=== PATIENT | female | born 1935 | race Caucasian/White ===

== ENCOUNTER 2019-06-22 10:00 | Outpatient (RCR) | payer MEDICARE, SELFPAY ==
--- NOTE | 2019-05-16 15:40 | PTOPEVAL ---
INITIAL PHYSICAL THERAPY EVALUATION and PLAN OF CARE Thank you for referring Maryjo to [facility]. She will be seen in PT 1x/wk x 6 wks. Please review, sign, date and return this plan of care CAMILLE. I agree with and certify that the following plan of care is medically necessary. Referring Physician Date Admitting Provider: Attending Provider: PHYSICIAN NOT ON STAFF Referring Provider: *PT Outpatient Evaluation Start: 05/16/19 14:11 Freq: Status: Active Protocol: Document 05/16/19 14:05 RYAN (Rec: 05/16/19 15:33 RYAN [id number]) Therapy Assessment Status Assessment Status Assessment Status Evaluation Outpatient Past Medical History Neurological History Hx Neurological Disorders No Significant History Cardiovascular History Hx Hypercholesterolemia Yes Hx Hypertension Yes Respiratory History Hx Other Respiratory Disorders Yes: gets out of breath easily -has inhalers,advair use prn Gastrointestinal History Hx Cholecystectomy Yes Hx Esophageal Disorders Yes: Pack's Hx Gastroesophageal Reflux Disease Yes Genitourinary History Hx Genitourinary Disorders No Significant History Musculoskeletal History Hx Other Musculoskeletal Disorders Yes: sees chiropractor 1x/wk- back,shld Endocrine History Hx Hypothyroidism Yes HEENT History Hx Cataracts Yes Other History Hx Cancer Yes: L breast lumpectomies, oral medication Evaluation Information Problem Diagnosis uterine prolapse;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 Was given cream to apply to issues. When applying the cream to perineal region - noticed bulge. No pain associated with bulge. was told it was her bladder not her uterus. At times - when coming home - will need to hurry to get to bathroom. Usually doesn't leak - but on occasion does. Will wear a pad - pantiliner - 1/day. Toliets 1x/night. Prior Level of Function Activity Level (Last 3 Months) Hand Dominance Right Medications Home Meds (Include: OTC, RX, Vitamins, advair diskus - prn, Herbals, Dose, Route,and Frequen
--- NOTE | 2019-06-22 14:25 | PTOPEVAL ---
PHYSICAL THERAPY DISCHARGE NOTE Thank you for referring Maryjo Thapa to [facility]. She was seen for a total of 6 visits. HEP and urge strategies were reviewed this date. Goals have been met. I agree with and certify that the following plan of care is medically necessary. Referring Physician Date Admitting Provider: Attending Provider: PHYSICIAN NOT ON STAFF Referring Provider: *PT Outpatient Evaluation Start: 05/16/19 14:11 Freq: Status: Active Protocol: Document 06/22/19 10:10 RYAN (Rec: 06/22/19 14:25 RYAN [email or web address]) Therapy Assessment Status Assessment Status Assessment Status Discharge Evaluation Information Problem Subjective Information Maryjo reports that she needs Query Text:As Reported By Patient/ to remember to do HEP on a Family regular basis. She has been able to use urge strategies effectively, but hasn't been traveling too much as of late due to stay at home situation with COVID 19. She did state that she hasn't noticed any change with perineal bulge with application of cream. Pain Assessment Timing of Pain Assessment Timing of Pain Assessment Assessment Self Report Self Report Pain Level 0 Pain Score Pain Score 0: Self Report Pelvic Health Evaluation Pelvic Floor Assessment Sustained Levator Ani Strength 3/[address] Quick Levator Ani Contraction in 15 7 reps Seconds PT Clinical Summary Clinical Summary Protocol: PTEVCODE PT Clinical Summary Maryjo has progressed well with levator ani strengthening - slow twitch, fast twitch fibers, as well as urge strategies. She has met most goals set in PT. She was encouraged to continue with HEP on a regular basis and to continue to utilize urge strategies whenever urinary urge is felt. Ready for d/c to HEP.
== END 2019-06-22 16:10 | disposition home or self-care (01) ==
LOC: ANHPT 10:00
DX: N81.4 Uterovaginal prolapse, unspecified (principal); C50.412 Malignant neoplasm of upper-outer quadrant of left female breast; Z17.0 Estrogen receptor positive status [ER+]
CPT/HCPCS: 97110; 97161

== ENCOUNTER → 2020-12-19 08:02 | Outpatient (CLI) | payer MEDICARE, SELFPAY ==
[2020-12-19 18:09] LABS: SARS-CoV-2 RNA PCR Positive
== END ==
PROVIDERS: PCP Family Medicine; Visit Provider Nurse Practitioner
DX: U07.1 COVID-19 (principal)
CPT/HCPCS: C9803; U0003; U0005

== ENCOUNTER → 2021-03-21 12:02 | Outpatient (CLI) | payer MEDICARE, SELFPAY ==
--- NOTE | ~2021-03-21 | DEXA_ITS ---
Bone Density Report Name: MANOLO FORMAN Age: 86 Sex: Female Ethnicity: White Date of : 1935 Indication: osteopenia; height loss; cancer; postmenopausal Referring Provider: Krystal Hsu Study: Bone densitometry was performed. Exam Date: March 21, 2021 Accession number: [id number] Bone Density: Region BMD T-score Z-score Classification AP Spine (L2, L3, L4) 0.954 -1.1 1.8 Osteopenia Femoral Neck (Left) 0.638 -1.9 0.6 Osteopenia Total Hip (Left) 0.772 -1.4 0.9 Osteopenia Femoral Neck (Right) 0.565 -2.6 0.0 Osteoporosis Total Hip (Right) 0.766 -1.4 0.9 Osteopenia Total Hip Mean 0.769 -1.4 0.9 Osteopenia World Health Organization criteria for BMD impression classify patients as: Normal (T-score at or above -1.0), Osteopenia (T-score between -1.0 and -2.5), or Osteoporosis (T-score at or below -2.5). 10-year Fracture Risk: FRAX not reported because: Some T-score for Spine Total or Hip Total or Femoral Neck at or below -2.5 Previous Exams: Region Exam Age BMD T-score BMD Change BMD Change Date g/cm2 vs Baseline vs Previous AP Spine(L2, L3, L4) 03/21/2021 86 0.954 -1.1 0.002 0.047* 10/26/2018 83 0.907 -1.6 -0.044* -0.044* 04/23/2016 81 0.951 -1.2 Total Hip(Left) 03/21/2021 86 0.772 -1.4 -0.028* 0.004 10/26/2018 83 0.767 -1.4 -0.032* -0.032* 04/23/2016 81 0.799 -1.2 Total Hip(Right) 03/21/2021 86 0.766 -1.4 0.002 0.020 10/26/2018 83 0.746 -1.6 -0.018 -0.018 04/23/2016 81 0.764 -1.5 *Denotes significance at 95% confidence level, LSC for AP Spine = 0.022 g/cm2, LSC for Total Hip = 0.027 g/cm2 Clinical Information Provided by Patient: Has used the following medications: Vitamin D, Calcium, MTV Has the following medical conditions: Cancer, LEVOTHYROXINE, ANASTROZOLE FOR LEFT BREAST CANCER 2018 Patient maximum height was 64.0 Menopause Age: 49 No regular weight bearing exercise Drinks caffeinated beverages Onset of menses at age 14 Number of children 4 Impression: The patient has osteoporosis, based on the Right Femoral Neck T-score. No significant bone loss was observed. Discussion: INCREASED RISK OF FRACTURE. BONE DENSITY IS UNDESIRABLY LOW AT ONE OR MORE SKELETAL SITES, CONSISTENT WITH POSTMENOPAUSAL OSTEOPOROSIS. This patient's lowest T-score meets the World Health Organization's (WHO) criteria for
== END ==
PROVIDERS: PCP Family Medicine; Visit Provider Nurse Practitioner Family
DX: M81.0 Age-related osteoporosis without current pathological fracture (principal); M85.89 Other specified disorders of bone density and structure, multiple sites
CPT/HCPCS: 77080

== ENCOUNTER → 2021-06-23 16:26 | Outpatient (CLI) | payer MEDICARE, SELFPAY ==
--- NOTE | ~2021-06-23 | XR_ITS ---
EXAMINATION: XR chest 2V DATE: 06/23/2021 16:39 INDICATION: Chronic obstructive pulmonary disease, unspecified. TECHNIQUE: Frontal and lateral views of the chest were obtained. COMPARISON: Chest 2 views 12/13/2017 FINDINGS: There is mild scarring at the lung apices. No pleural effusion or pneumothorax. The heart s ize is normal. Surgical clips in the right upper quadrant are likely from cholecystectomy. IMPRESSION: 1. Mild scarring at the lung apices. Reviewed, dictated and finalized at location B.
== END ==
PROVIDERS: PCP Family Medicine; Visit Provider Family Medicine
DX: J44.9 Chronic obstructive pulmonary disease, unspecified (principal); R05.9 Cough, unspecified; R91.8 Other nonspecific abnormal finding of lung field
CPT/HCPCS: 71046

== ENCOUNTER 2021-08-07 14:41 | Outpatient (CLI) | payer MEDICARE, SELFPAY ==
--- NOTE | ~2021-08-07 | XR_ITS ---
EXAMINATION: XR abdomen/kub 1V INDICATION: Constipation TECHNIQUE: Supine views of the abdomen were obtained on 2 radiographs. COMPARISON: 07/05/2005 FINDINGS: There is a moderate volume of colonic stool. The bowel gas pattern is normal. There are no dilated loops of bowel. Severe lumbar spondylosis is noted. Surgical clips in the right upper quadran t are likely from prior cholecystectomy. There is mild osteoarthritis of the hips. IMPRESSION: 1. Moderate volume of colonic stool. Reviewed, dictated and finalized at location F.
== END 2021-08-07 14:42 | disposition home or self-care (01) ==
PROVIDERS: PCP Family Medicine; Visit Provider Nurse Practitioner Family
DX: K59.00 Constipation, unspecified (principal)
CPT/HCPCS: 74018

== ENCOUNTER → 2021-10-03 03:02 | Outpatient (CLI) | payer MEDICARE, SELFPAY ==
[2021-10-03 12:06] LABS: SARS-CoV-2 RNA PCR Positive
== END ==
PROVIDERS: PCP Family Medicine; Visit Provider Family Medicine
DX: U07.1 COVID-19 (principal); R50.9 Fever, unspecified
CPT/HCPCS: C9803; U0003; U0005

== ENCOUNTER 2021-11-07 10:42 | Outpatient (CLI) | payer MEDICARE, SELFPAY ==
[2021-11-07 18:42] LABS: Basophils Absolute Auto 0.1 K/mm3 (0.0-0.1); Basophils Percent Auto 0.5 % (0.2-1.2); Eosinophils Absolute Auto 0.2 K/mm3 (0-0.3); Eosinophils Percent Auto 1.2 % (0-4.4); Hematocrit 37.3 % (37.0-47.0); Hemoglobin 12.2 g/dL (12.0-15.0); Immature Granulocyte Absolute 0.04 K/mm3 (0.00-0.031); Immature Granulocyte Percent A 0.3 % (0-0.5); Lymphocytes Absolute Auto 1.68 K/mm3 (0.9-3.2); Lymphocytes Percent Auto 13.8 % (18.3-44.2); Mean Corpuscular HGB Conc 32.7 g/dl (32-36); Mean Corpuscular Hemoglobin 33.4 pg (26-34); Mean Corpuscular Volume 102.2 fl (80-100); Mean Platelet Volume 9.9 fl (7.4-10.4); Monocytes Absolute Auto 0.9 K/mm3 (0.1-0.6); Monocytes Percent Auto 7.6 % (2.6-8.5); Neutrophils Absolute Auto 9.4 K/mm3 (1.3-6.7); Neutrophils Percent Auto 76.6 % (45.5-73.1); Platelet Count Result 358 k/mm3 (150-375); Red Blood Count 3.65 M/mm3 (4.2-5.4); Red Cell Distribution Width 12.8 % (11.5-14.5); White Blood Count 12.2 K/mm3 (4.5-10.0)
[2021-11-07 19:06] LABS: Alanine Aminotransferase 15 U/L (6-35); Albumin Level 4.4 g/dL (3.5-5.1); Alkaline Phosphatase 52 U/L (38-126); Anion Gap 15 mmol/L (8-16); Aspartate Amino Transferase 43 U/L (14-36); Bilirubin,Total 0.3 mg/dL (0.2-1.3); Blood Urea Nitrogen 23 mg/dL (7-17); Calcium 9.6 mg/dL (8.4-10.2); Carbon Dioxide 28 mmol/L (22-30); Chloride 98 mmol/L (98-107); Cholesterol 176 mg/dL (0-200); Estimated Glomerular Filt Rate 43; Glucose 91 mg/dL (65-110); HDL Direct 46 mg/dL; Potassium 4.7 mmol/L (3.4-5.0); Sodium 141 mmol/L (137-145); Triglycerides 146 mg/dL (<150)
[2021-11-07 19:17] LABS: LDL Cholesterol Direct 88 mg/dL
[2021-11-07 19:34] LABS: Vitamin D 25 Hydroxy 50.5 ng/mL
== END 2021-11-07 10:43 | disposition home or self-care (01) ==
PROVIDERS: PCP Family Medicine; Visit Provider Nurse Practitioner Family
DX: E78.5 Hyperlipidemia, unspecified (principal); I10 Essential (primary) hypertension; E03.9 Hypothyroidism, unspecified; E55.9 Vitamin D deficiency, unspecified
CPT/HCPCS: 36415; 80053; 80061; 82306; 84443; 85025

== ENCOUNTER 2021-12-18 08:50 | Outpatient (CLI) | payer MEDICARE, SELFPAY ==
[2021-12-18 20:16] LABS: Alanine Aminotransferase 18 U/L (6-35); Albumin Level 4.4 g/dL (3.5-5.1); Alkaline Phosphatase 66 U/L (38-126); Anion Gap 11 mmol/L (8-16); Aspartate Amino Transferase 24 U/L (14-36); Bilirubin,Total 0.5 mg/dL (0.2-1.3); Blood Urea Nitrogen 22 mg/dL (7-17); Carbon Dioxide 24 mmol/L (22-30); Chloride 102 mmol/L (98-107); Estimated Glomerular Filt Rate 39; Glucose 97 mg/dL (65-110); Potassium 4.3 mmol/L (3.4-5.0); Sodium 137 mmol/L (137-145)
[2021-12-18 20:20] LABS: Iron 121 ug/dL (37-170)
[2021-12-18 20:22] LABS: Hematocrit 37.7 % (37.0-47.0); Hemoglobin 11.8 g/dL (12.0-15.0); Mean Corpuscular HGB Conc 31.3 g/dl (32-36); Mean Corpuscular Hemoglobin 33.1 pg (26-34); Mean Corpuscular Volume 105.9 fl (80-100); Platelet Count Result 338 k/mm3 (150-375); Red Blood Count 3.56 M/mm3 (4.2-5.4); Red Cell Distribution Width 13.2 % (11.5-14.5); White Blood Count 7.2 K/mm3 (4.5-10.0)
[2021-12-18 20:31] LABS: Percent Iron Saturation 37 % (20-50)
[2021-12-18 21:14] LABS: Anisocytosis 1+ (NORMAL); Band Neutrophils Percent 3 % (0-6); Eosinophils Absolute Manual 0.07 K/mm3 (0.02-0.5); Eosinophils Percent Manual 1 % (0-4); Lymphocytes Absolute Manual 2.16 K/mm3 (1.1-4.5); Microcytosis 1+ (NORMAL); Monocytes Absolute Manual 0.64 K/mm3 (0.1-0.90); Monocytes Percent Manual 9 % (3-9); Myelocytes Percent 1 %; Neutrophils Absolute Manual 4.24 K/mm3 (1.7-7.2); Neutrophils Percent Manual 56 % (46-73); Platelet Estimate Adequate (Adequate); Total Cells Counted 100
[2021-12-18 21:15] LABS: Atypical Lymphocytes Present; Poikilocytosis 1+ (NORMAL); Schistocytes None Seen (NORMAL); Smudge Cells FEW
[2021-12-18 21:16] LABS: Crenated RBC 2+ (NORMAL)
== END 2021-12-18 08:51 | disposition home or self-care (01) ==
LOC: ANHGOSHLAB 08:52
PROVIDERS: PCP Family Medicine; Visit Provider Nurse Practitioner Family
DX: L65.9 Nonscarring hair loss, unspecified (principal); R74.01 Elevation of levels of liver transaminase levels; D64.9 Anemia, unspecified
CPT/HCPCS: 36415; 80053; 82607; 82728; 83540; 83550; 85025

== ENCOUNTER 2022-05-15 08:51 | Outpatient (CLI) | payer MEDICARE, SELFPAY ==
[2022-05-15 19:26] LABS: Basophils Absolute Auto 0.1 K/mm3 (0.0-0.1); Eosinophils Absolute Auto 0.1 K/mm3 (0-0.3); Eosinophils Percent Auto 1.6 % (0-4.4); Hematocrit 38.5 % (37.0-47.0); Hemoglobin 12.6 g/dL (12.0-15.0); Immature Granulocyte Absolute 0.02 K/mm3 (0.00-0.031); Immature Granulocyte Percent A 0.3 % (0-0.5); Lymphocytes Absolute Auto 1.48 K/mm3 (0.9-3.2); Lymphocytes Percent Auto 23.7 % (18.3-44.2); Mean Corpuscular HGB Conc 32.7 g/dl (32-36); Mean Corpuscular Hemoglobin 33.2 pg (26-34); Mean Corpuscular Volume 101.3 fl (80-100); Mean Platelet Volume 10.2 fl (7.4-10.4); Monocytes Absolute Auto 0.6 K/mm3 (0.1-0.6); Monocytes Percent Auto 9.3 % (2.6-8.5); Neutrophils Percent Auto 64.1 % (45.5-73.1); Platelet Count Result 306 k/mm3 (150-375); Red Cell Distribution Width 13.1 % (11.5-14.5); White Blood Count 6.3 K/mm3 (4.5-10.0)
[2022-05-15 19:28] LABS: Alanine Aminotransferase 19 U/L (6-35); Albumin Level 4.3 g/dL (3.5-5.1); Alkaline Phosphatase 67 U/L (38-126); Anion Gap 5 mmol/L (8-16); Aspartate Amino Transferase 27 U/L (14-36); Bilirubin,Total 0.4 mg/dL (0.2-1.3); Blood Urea Nitrogen 23 mg/dL (7-17); Calcium 9.7 mg/dL (8.4-10.2); Carbon Dioxide 29 mmol/L (22-30); Chloride 102 mmol/L (98-107); Cholesterol 171 mg/dL (0-200); Estimated Glomerular Filt Rate 43; Glucose 92 mg/dL (65-110); HDL Direct 48 mg/dL; Potassium 4.6 mmol/L (3.4-5.0); Sodium 136 mmol/L (137-145); Triglycerides 135 mg/dL (<150)
[2022-05-15 19:39] LABS: LDL Cholesterol Direct 86 mg/dL
== END 2022-05-15 08:52 | disposition home or self-care (01) ==
LOC: ANHGOSHLAB 08:52
PROVIDERS: PCP Family Medicine; Visit Provider Nurse Practitioner Family
DX: I10 Essential (primary) hypertension (principal); E03.9 Hypothyroidism, unspecified; E78.5 Hyperlipidemia, unspecified
CPT/HCPCS: 36415; 80053; 80061; 84443; 85025

== ENCOUNTER 2022-11-19 09:01 | Outpatient (CLI) | payer MEDICARE, SELFPAY ==
[2022-11-19 11:40] LABS: Basophils Absolute Auto 0.1 K/mm3 (0.0-0.1); Basophils Percent Auto 0.9 % (0.2-1.2); Eosinophils Absolute Auto 0.2 K/mm3 (0-0.3); Eosinophils Percent Auto 2.6 % (0-4.4); Hematocrit 38.2 % (37.0-47.0); Hemoglobin 12.3 g/dL (12.0-15.0); Immature Granulocyte Absolute 0.02 K/mm3 (0.00-0.031); Immature Granulocyte Percent A 0.3 % (0-0.5); Lymphocytes Absolute Auto 1.66 K/mm3 (0.9-3.2); Lymphocytes Percent Auto 21.6 % (18.3-44.2); Mean Corpuscular HGB Conc 32.2 g/dl (32-36); Mean Corpuscular Hemoglobin 33.2 pg (26-34); Mean Corpuscular Volume 103.2 fl (80-100); Monocytes Absolute Auto 0.8 K/mm3 (0.1-0.6); Monocytes Percent Auto 10.2 % (2.6-8.5); Neutrophils Absolute Auto 4.9 K/mm3 (1.3-6.7); Neutrophils Percent Auto 64.4 % (45.5-73.1); Platelet Count Result 359 k/mm3 (150-375); Red Cell Distribution Width 12.7 % (11.5-14.5); White Blood Count 7.7 K/mm3 (4.5-10.0)
[2022-11-19 12:53] LABS: Alanine Aminotransferase 18 U/L (6-35); Albumin Level 4.3 g/dL (3.5-5.1); Alkaline Phosphatase 62 U/L (38-126); Anion Gap 6 mmol/L (8-16); Aspartate Amino Transferase 37 U/L (14-36); Bilirubin,Total 0.4 mg/dL (0.2-1.3); Blood Urea Nitrogen 22 mg/dL (7-17); Calcium 9.5 mg/dL (8.4-10.2); Carbon Dioxide 28 mmol/L (22-30); Chloride 104 mmol/L (98-107); Cholesterol 184 mg/dL (0-200); Estimated Glomerular Filt Rate 39; Glucose 94 mg/dL (65-110); HDL Direct 48 mg/dL; Potassium 5.1 mmol/L (3.4-5.0); Sodium 138 mmol/L (137-145); Triglycerides 123 mg/dL (<150)
[2022-11-19 13:07] LABS: LDL Cholesterol Direct 100 mg/dL
[2022-11-23 11:46] LABS: Vitamin D 1,25 (OH)2 Total 34 pg/mL (18-72); Vitamin D2 1,25 (OH)2 <8 pg/mL; Vitamin D3 1,25 (OH)2 34 pg/mL
== END 2022-11-19 09:02 | disposition home or self-care (01) ==
PROVIDERS: PCP Family Medicine; Visit Provider Nurse Practitioner Family
DX: E55.9 Vitamin D deficiency, unspecified (principal); I10 Essential (primary) hypertension; E53.8 Deficiency of other specified B group vitamins; E03.9 Hypothyroidism, unspecified
CPT/HCPCS: 36415; 80053; 80061; 82607; 82652; 84443; 85025

== ENCOUNTER 2023-02-11 00:47 | Day surgery (SDC) | payer MEDICARE, SELFPAY ==
[2023-02-02 08:55] VITALS: BMI 25.9
--- NOTE | 2023-02-09 11:43 | SUR.PREOP ---
Patient called regarding upcoming procedure. Reviewed preop instructions, appointment times, and procedure prep.
[2023-02-11 09:22] VITALS: BP 126/57; PULSE 73; RESP 20; TEMP 36.6; O2SAT 100; BMI 25.3
[2023-02-11] MEDS: LACTATED RINGERS 1,000 ML 150 ML IV CONT (09:29)
--- NOTE | 2023-02-11 09:36 | PM.HPGS ---
History of Present Illness History of Present Illness Consent: Risks, benefits, and alternatives have been discussed and questions answered. Patient agrees to proceed with procedure. Chief complaint: neoplasm screening, altered BM Narrative: Maryjo Thapa is a 88 year old female Referred to our office by Dr. Crissy Valdivia. Patient states her main problem is alternating bowel habits. She states diarrhea alternates with constipation. She has had no relief of symptoms. She states she we been prescribed nothing specific for this. Apparently was seen in our office several years ago for similar complaints. Patient denies any bleeding. She denies any blood in her stools. Now referred by primary care service apparently for screening evaluation. Review of Systems Review of Systems: Review of systems noncontributory. [facility] Past Medical History Medical History Pack esophagus Benign essential HTN CKD (chronic kidney disease) stage 3, GFR 30-59 ml/min Constipation COPD (chronic obstructive pulmonary disease) GERD without esophagitis H/O malignant neoplasm of female breast 2017 Hyperlipidemia Hypothyroid Osteopenia Osteoporosis Stress incontinence Urinary frequency Surgical History Surgical History History of nasal surgery 2018 Family History Family History Mother Family history of malignant neoplasm of breast in first degree relative, Onset Age: 43 Patient's mother is Father Family history of malignant neoplasm of stomach, Onset Age: 65 Other Family history of alcoholism Family history of arthritis Family history of malignant neoplasm Family history of mental disorder Social History Social History Social History: second hand smoke: and children Smoking status: Never smoker Second hand tobacco smoke exposure: No Additional smoking assessment comments: lives with smokers Alcohol intake: never Substance use: never Substance use type: does not use Lack of Transportation: No Lack of Food: Never True Current Housing: I Have Housing Concerned About Future Housing: No Difficulty Paying Gas/Electric Bills: No Difficulty Paying for Meds: No Currently Unemployed: No Education: Bachelor's Degree Difficulty w/ Childcare or Family Care: No Living arrangements: with family Additional living arrangements comments: lives with grandson, his and their kids Occupation/Education: retired Gender identity (if verbalized by the patient): Female Spiritual care concerns: No Meds Home Medications and Allergies Home Medications Medication Instructions Recorded Confirmed Type aspirin 81 mg tablet,delayed 81 mg PO DAILY #90 tabs 06/12/19 02/02/23 Rx release (Adult Aspirin Regimen) multivitamin 1 tablet PO DAILY #90 tabs 06/12/19 02/02/23 Rx vitamin B12 500 mcg-folic acid 400 1 tablet PO DAILY #90 tabs 06/12/19 02/02/23 Rx mcg tablet cholecalciferol (vitamin D3) 75 600 mcg PO DAILY 08/12/20 02/02/23 History mcg (3,000 unit) tablet lisinopril 10 mg tablet 20 mg PO BID 08/12/20 02/02/23 History simvastatin 20 mg tablet 20 mg PO DAILY #90 tabs 09/19/20 02/02/23 Rx levothyroxine 50 mcg tablet 50 mcg PO DAILY #90 tabs 09/14/22 02/02/23 Rx omeprazole 40 mg capsule,delayed 40 mg PO DAILY #90 caps 09/14/22 02/02/23 Rx release anastrozole 1 mg tablet 1 mg PO DAILY 11/16/22 02/02/23 History denosumab 60 mg/mL subcutaneous 60 mg subcut [id number] 11/16/22 02/02/23 History syringe (Prolia) metoprolol succinate 50 mg 50 mg PO DAILY #90 tabs 12/30/22 02/02/23 Rx tablet,extended release 24 hr (Toprol XL) albuterol sulfate 90 mcg/actuation 2 puff inhalation Q4-6H PRN 01/27/23 02/02/23 Rx aerosol in
--- NOTE | 2023-02-11 10:08 | WPDANESEPPF ---
Anes - Initial Pre Proc Eval Procedure: Operation Date: 02/11/23 10:30 Proposed Procedures p Screening Colonoscopy - Gio Eason MD Date/Time: 02/11/23 10:08 Surgeon: Gio Eason MD Pre Op Diagnosis: neoplasm screening, altered BM Patient Data Age: 88 Gender: F Height: 1.55 m Weight: 60.8 kg Last Vital Signs Temp 97.8 F 02/11/23 09:22 Pulse 73 02/11/23 09:22 Resp 20 02/11/23 09:22 BP 126/57 L 02/11/23 09:22 Pulse Ox 100 02/11/23 09:22 O2 Del Method Room Air 02/11/23 09:22 Allergies Allergy/AdvReac Type Severity Reaction Status Date / Time No Known Allergies Allergy Verified 02/11/23 09:20 Home Medications Medication Instructions Recorded Confirmed Type aspirin 81 mg tablet,delayed 81 mg PO DAILY #90 tabs 06/12/19 02/02/23 Rx release (Adult Aspirin Regimen) multivitamin 1 tablet PO DAILY #90 tabs 06/12/19 02/02/23 Rx vitamin B12 500 mcg-folic acid 400 1 tablet PO DAILY #90 tabs 06/12/19 02/02/23 Rx mcg tablet cholecalciferol (vitamin D3) 75 600 mcg PO DAILY 08/12/20 02/02/23 History mcg (3,000 unit) tablet lisinopril 10 mg tablet 20 mg PO BID 08/12/20 02/02/23 History simvastatin 20 mg tablet 20 mg PO DAILY #90 tabs 09/19/20 02/02/23 Rx levothyroxine 50 mcg tablet 50 mcg PO DAILY #90 tabs 09/14/22 02/02/23 Rx omeprazole 40 mg capsule,delayed 40 mg PO DAILY #90 caps 09/14/22 02/02/23 Rx release anastrozole 1 mg tablet 1 mg PO DAILY 11/16/22 02/02/23 History denosumab 60 mg/mL subcutaneous 60 mg subcut [id number] 11/16/22 02/02/23 History syringe (Prolia) metoprolol succinate 50 mg 50 mg PO DAILY #90 tabs 12/30/22 02/02/23 Rx tablet,extended release 24 hr (Toprol XL) albuterol sulfate 90 mcg/actuation 2 puff inhalation Q4-6H PRN 01/27/23 02/02/23 Rx aerosol inhaler (Ventolin HFA) shortness of breath or wheezing #8.5 grams amlodipine 10 mg tablet 5 mg PO DAILY 01/29/23 02/02/23 History prednisone 50 mg tablet 50 mg PO DAILY #5 tabs 01/29/23 02/02/23 Rx fluticasone furoate 100 1 inh inhalation DAILY 02/02/23 02/02/23 History mcg-vilanterol 25 mcg/dose inhalation powder (Breo Ellipta) Patient hx anesthesia problems: none Family hx anesthesia problems: none Results Review: All pre-operative results and documents have been reviewed as part of the pre-operative evaluation. [facility] Past Medical History Medical History Pack esophagus Benign essential HTN CKD (chronic kidney disease) stage 3, GFR 30-59 ml/min Constipation COPD (chronic obstructive pulmonary disease) GERD without esophagitis H/O malignant neoplasm of female breast 2018 Hyperlipidemia Hypothyroid Osteopenia Osteoporosis Stress incontinence Urinary frequency Surgical History Surgical History History of nasal surgery 2018 Family History Family History Mother Family history of malignant neoplasm of breast in first degree relative, Onset Age: 43 Patient's mother is Father Family history of malignant neoplasm of stomach, Onset Age: 65 Other Family history of alcoholism Family history of arthritis Family history of malignant neoplasm Family history of mental disorder Social History Social History Social History: second hand smoke: and children Smoking status: Never smoker Second hand tobacco smoke exposure: No Additional smoking assessment comments: lives with smokers Alcohol intake: never Substance use: never Substance use type: does not use Lack of Transportation: No Lack of Food: Never True Current Housing: I Have Housing Concerned About Future Housing: No Difficulty Paying Gas/Electric Bills: No Difficulty Paying for Meds: No Currently Unemployed: No E
[2023-02-11 10:33] VITALS: BP 131/113; PULSE 77; RESP 25; O2SAT 96
[2023-02-11 10:43] VITALS: BP 105/57; PULSE 71; RESP 19; O2SAT 100
[2023-02-11 10:53] VITALS: BP 123/60; PULSE 70; RESP 20; O2SAT 100
== END 2023-02-11 11:04 | disposition home or self-care (01) ==
PROVIDERS: PCP Family Medicine; Visit Provider Internal Medicine Gastroenterology
PROC: 0DJD8ZZ Inspection of Lower Intestinal Tract, Via Natural or Artificial Opening Endoscopic (ICD-10-PCS; CPT 45378; principal; 2023-02-11 10:30)
DX: Z12.11 Encounter for screening for malignant neoplasm of colon (principal); K57.30 Diverticulosis of large intestine without perforation or abscess without bleeding; K64.8 Other hemorrhoids; K59.01 Slow transit constipation; R19.7 Diarrhea, unspecified; I12.9 Hypertensive chronic kidney disease with stage 1 through stage 4 chronic kidney disease, or unspecified chronic kidney disease; N18.30 Chronic kidney disease, stage 3 unspecified; E78.5 Hyperlipidemia, unspecified; E03.9 Hypothyroidism, unspecified; J44.9 Chronic obstructive pulmonary disease, unspecified; K21.9 Gastro-esophageal reflux disease without esophagitis; M81.0 Age-related osteoporosis without current pathological fracture; Z85.3 Personal history of malignant neoplasm of breast; Z79.82 Long term (current) use of aspirin; Z79.51 Long term (current) use of inhaled steroids; Z79.811 Long term (current) use of aromatase inhibitors
CPT/HCPCS: G0121; J2704; J7120

== ENCOUNTER 2023-05-24 09:55 | Outpatient (CLI) | payer MEDICARE, SELFPAY ==
[2023-05-24 12:50] LABS: Basophils Absolute Auto 0.1 K/mm3 (0.0-0.1); Eosinophils Absolute Auto 0.2 K/mm3 (0-0.3); Eosinophils Percent Auto 2.4 % (0-4.4); Hemoglobin 12.9 g/dL (12.0-15.0); Immature Granulocyte Absolute 0.04 K/mm3 (0.00-0.031); Immature Granulocyte Percent A 0.5 % (0-0.5); Lymphocytes Absolute Auto 1.98 K/mm3 (0.9-3.2); Lymphocytes Percent Auto 24.1 % (18.3-44.2); Mean Corpuscular HGB Conc 31.5 g/dl (32-36); Mean Corpuscular Hemoglobin 32.2 pg (26-34); Mean Corpuscular Volume 102.2 fl (80-100); Mean Platelet Volume 9.8 fl (7.4-10.4); Monocytes Absolute Auto 0.8 K/mm3 (0.1-0.6); Monocytes Percent Auto 9.5 % (2.6-8.5); Neutrophils Absolute Auto 5.1 K/mm3 (1.3-6.7); Neutrophils Percent Auto 62.5 % (45.5-73.1); Platelet Count Result 347 k/mm3 (150-375); Red Blood Count 4.01 M/mm3 (4.2-5.4); Red Cell Distribution Width 13.7 % (11.5-14.5); White Blood Count 8.2 K/mm3 (4.5-10.0)
[2023-05-24 13:20] LABS: Alanine Aminotransferase 20 U/L (6-35); Albumin Level 4.3 g/dL (3.5-5.1); Alkaline Phosphatase 47 U/L (38-126); Anion Gap 4 mmol/L (8-16); Aspartate Amino Transferase 60 U/L (14-36); Bilirubin,Total 0.5 mg/dL (0.2-1.3); Blood Urea Nitrogen 23 mg/dL (7-17); Calcium 9.5 mg/dL (8.4-10.2); Carbon Dioxide 29 mmol/L (22-30); Chloride 107 mmol/L (98-107); Estimated Glomerular Filt Rate 47; Glucose 64 mg/dL (65-110); Potassium 4.2 mmol/L (3.4-5.0); Sodium 140 mmol/L (137-145)
[2023-05-27 23:15] LABS: Vitamin D 1,25 (OH)2 Total 36 pg/mL (18-72); Vitamin D2 1,25 (OH)2 <8 pg/mL; Vitamin D3 1,25 (OH)2 36 pg/mL
== END 2023-05-24 09:56 | disposition home or self-care (01) ==
LOC: ANHGOSHLAB 09:57
PROVIDERS: PCP Family Medicine; Visit Provider Nurse Practitioner Family
DX: E55.9 Vitamin D deficiency, unspecified (principal); I10 Essential (primary) hypertension; R53.83 Other fatigue; L65.9 Nonscarring hair loss, unspecified
CPT/HCPCS: 36415; 80053; 82652; 84443; 85025

== ENCOUNTER 2023-06-10 14:09 | Outpatient (CLI) | payer MEDICARE, SELFPAY ==
--- NOTE | ~2023-06-10 | XR_ITS ---
XR thoracic spine 2V DATE: 06/10/2023 14:30 INDICATION: Fall 3 weeks ago. Right back pain TECHNIQUE: AP and lateral views COMPARISON: None FINDINGS: There is mild thoracic levoscoliosis. Diffuse idiopathic skeletal hyperostosis of the thoracic spine. There is mild anterior wedging of T12, likely chronic. No recent fracture or dislocation or bone destruction is evident. No paraspinal soft tissue thickenin g. There is extensive calcification of the thoracic and abdominal aorta. Status post cholecystectomy. IMPRESSION: Mild thoracic levoscoliosis Diffuse idiopathic skeletal hyperostosis of the thoracic spine No recent thoracic spine fracture is evident. Reviewed, dictated and finalized at location B.
--- NOTE | ~2023-06-10 | XR_ITS ---
XR lumbar spine 2-3V DATE: 06/10/2023 14:30 INDICATION: Fall 3 weeks ago. Low back pain, right side. TECHNIQUE: AP, lateral, coned lateral lumbosacral views COMPARISON: None FINDINGS: There is diffuse osteopenia. Slight lumbar levoscoliosis. No fracture or bone destruction of the lumbar spine is evident. The lumbar pedicles are intact. Moderately severe degenerative disc disease at L1-2, L2-3, L3-4 with associated mild retrolisthesis a t L3-4. Minimal grade 1 anterolisthesis at L5-S1, likely due to degenerative change at the apophyseal joints. The sacroiliac joints and pubic symphysis are intact. Status post cholecystectomy. There is extensive calcification of the abdominal aorta, without aneurysm. IMPRESSION: Lumbar levoscoliosis Osteopenia Moderately severe degenerative disease at L1-2 through L3-4, with associated mild retrolisthesis at t he latter interspace Minimal grade 1 anterolisthesis at L5-S1, likely due to degenerative changes apophyseal joints Reviewed, dictated and finalized at location B. IMPRESSION: Lumbar levoscoliosis Osteopenia Moderately severe degenerative disease at L1-2 through L3-4, with associated mi ld retrolisthesis at the latter interspace Minimal grade 1 anterolisthesis at L5-S1, likely due to degenerative changes ap ophyseal joints
== END 2023-06-10 14:10 ==
LOC: GOSHIMG 14:11
PROVIDERS: PCP Family Medicine; Visit Provider Nurse Practitioner
DX: M51.36 Other intervertebral disc degeneration, lumbar region (principal); M48.14 Ankylosing hyperostosis [Forestier], thoracic region
CPT/HCPCS: 72070; 72100

== ENCOUNTER 2023-08-31 12:54 | Outpatient (CLI) | payer MEDICARE, SELFPAY ==
--- NOTE | ~2023-08-31 | DEXA_ITS ---
Bone Density Report Name: MANOLO FORMAN Age: 88 Sex: Female Ethnicity: White Date of : 1935 Indication: postmenopausal; screening for osteoporosis; height loss; Referring Provider: MICK RAMIRES Study: Bone densitometry was performed. Exam Date: August 31, 2023 Accession number: [id number] Bone Density: Region BMD T-score Z-score Classification AP Spine(L1-L4) 0.945 -0.9 1.9 Normal Femoral Neck (Left) 0.674 -1.6 0.9 Osteopenia Total Hip (Left) 0.808 -1.1 1.2 Osteopenia Femoral Neck (Right) 0.587 -2.4 0.2 Osteopenia Total Hip (Right) 0.725 -1.8 0.6 Osteopenia Total Hip Mean 0.767 -1.5 0.9 Osteopenia World Health Organization criteria for BMD impression classify patients as: Normal (T-score at or above -1.0), Osteopenia (T-score between -1.0 and -2.5), or Osteoporosis (T-score at or below -2.5). 10-year Fracture Risk(1): Major Osteoporotic Fracture 16% Hip Fracture 5.4% Reported Risk Factors: [place] (), Neck BMD=0.587, BMI=28.3 (1) FRAX(R) Version 3.08. Fracture probability calculated for an untreated patient. Fracture probability may be lower if the patient has received treatment. Clinical Information Provided by Patient: Is being treated for osteoporosis Has used the following medications: Prolia (i.e. denosumab), Vitamin D, Calcium Patient maximum height was 64 Menopause Age: 51 No regular weight bearing exercise Does not regularly consume dairy products Drinks caffeinated beverages Onset of menses at age 15 Number of children 4 Impression: The patient has low bone mass, based on the Right Femoral Neck T-score. The patient has an estimated ten-year risk of hip fracture of 5.4% and an estimated ten-year risk of major fracture of 16%, based on the WHO FRAX algorithm. Discussion: It is important to ask patients whether they are taking their medications and to encourage continued and appropriate compliance with their osteoporosis therapies to reduce fracture risk. It is also important to review their risk factors and encourage appropriate calcium and vitamin D intakes, exercise, fall prevention and other lifestyle measures. Follow-Up: Consider a repeat BMD and Vertebral Fracture Assessment (VFA) exam in 2 years or sooner if medically necessary, to reassess this patient's status. Reported by: WES on 08/31/2023 1:23:00 PM. Reviewed, dictated and finalized at location AJoseph GONZALES
== END 2023-08-31 12:55 | disposition home or self-care (01) ==
PROVIDERS: PCP Family Medicine; Visit Provider Nurse Practitioner Family
DX: Z78.0 Asymptomatic menopausal state (principal); M85.89 Other specified disorders of bone density and structure, multiple sites
CPT/HCPCS: 77080

== ENCOUNTER 2024-05-12 11:33 | Outpatient (CLI) | payer MEDICARE, SELFPAY ==
--- OUTSIDE RECORDS SUMMARY | 2024-05-12 12:24 | XMS_ITS | Encounter Summary ---
Author Organization [facility] Address [address] [place] [address] Care Team Providers Care Home Theater Expert Name Role Phone Ruddy Holliday DO Primary Care Provider [phone] Encounter Details Date Type Department Care Team (Late st Contact Info) Description 11/18/[address] [facility] [address], [facility] [place] [place] [id number] Trev Finnegan MD [address] [place] [address] Social History Tobacco Use Types Packs/Day Years Used Date Smoking Tobacco: Never Assessed Sex and Gender Information Value Date Recorded Sex Assigned at Not on file Gender Identity Not on file Sexual Orientation Not on file documented as of this encounter Plan of Treatment Not on file documented as of this encounter Procedures Procedure Name Priority Date/Time Associated Diagnosis Comments DERMATOPATHOLOGY Routine 11/17/2017 12:0 0 AM CDT documented in this encounter Results * DERMATOPATHOLOGY (11/17/2017 12:00 AM CDT) Case Report Dermatopathology Report Case: [id number] Authorizing Provider: Trev Finnegan MD Collected: 11/17/2017 12:00 AM Pathologist: Kayli Baldwin MD Received: 11/18/2017 01:06 PM Specimen: Skin, left side nose 8 5:39 PM CDT DERMATOPATHOLOGY LABORATORY Final Diagnosis Specimen A. SKIN, left side nose: DERMAL SCAR; PRESENT AT MARGIN (L90.5) RESIDUAL BASAL CELL CARCINOMA NOT IDENTIFIED (see microscopic description) 5:39 PM CDT DERMATOPATHOLOGY LABORATORY Clinical History R/O bx proven BCC, nodular. [id number]. Check margins. 5:39 PM CDT DERMATOPATHOLOGY LABORATORY Gross Description Specimen A: Received is one formalin filled container labeled with the patient's name and designated left side nose. The specimen consists of a curettage and desiccation biopsy measuring [id number]. The margin is inked green. Jar 0. 5:39 PM CDT DERMATOPATHOLOGY LABORATORY Microscopic Description Specimen A. SKIN, left side nose: There are fibroblasts and collagen bundles oriented parallel to the skin surface. There are elongated blood vessels, some of which are oriented perpendicular to the skin surface. No basal cell carcinoma is identified. There is minimal dermis present for evaluation. The dermal scar is present at the base of the specimen. 5:39 PM CDT DERMATOPATHOLOGY LABORATORY Disclaimer An external and internal positive and negative controls are appropriate for the histochemical, immunohistochemical and immunofluorescence stain(s) in this case (if any), except where stated explicitly. The performance characteristics of the stain(s) cited in this report were developed and its performance characteristic determined by the Dermatopathology Laboratory at [facility]. These tests need not be, and therefore are not, approved by the [place] Food and Drug Administration. The tests are used for clinical purposes. Billing Codes Specimen Charges Stain Charges 37625 1 5:39 PM CDT DERMATOPATHOLOGY LABORATORY Embedded Images 5:39 PM CDT DERMATOPATHOLOGY LABORATORY Pathology/Cytolog y TISSUE SPECIMEN FROM SKIN / Unknown 11/17/2017 11/18/2017 1:06 PM CDT Trev Finnegan MD LAB - PATHOLOGY/CYTO LOGY ORDERABLES DERMATOPATHOLOGY LABORATORY [facility] - Department of Dermatology [address] [place] [address], [facility] [phone] documented in this encounter Visit Diagnoses Not on filedocumented in this encounter Care Teams Home Theater Expert Relationship Specialty Start Date End Date Ruddy Holliday DO [address] [place] [address] PCP - General 10/07/17 documented as of this encounter
--- OUTSIDE RECORDS SUMMARY | 2024-05-12 12:24 | XMS_ITS | Clinical Summary ---
Author Organization [facility] Address [address] [place] [address] Care Team Providers Care Gift Shop Manager Name Role Phone Ruddy Holliday Primary Care Provider [phone] Source Comments [facility],non-owned Affiliates and Associated Physician Practices is amultiple site organization consisting of ambulatory clinics and hospital sitesin [place], [place], [place] and [place]. This disclosure is being madepursuant to the Care Everywhere program and may not contain all information available regarding this patient. Last updated 17.[facility] Immunizations Name Administration Dates Next Due INFLUENZA VACCINE, HIGH-DOSE , QUADR. (FLUZONE HIGH-DOSE QUADRIVALENT; 65Y+), 0.7 ML (HD-IIV4) 11/25/2015 Social History Tobacco Use Types Packs/Day Years Used Date Smoking Tobacco: Never Assessed Sex and Gender Information Value Date Recorded Sex Assigned at Not on file Gender Identity Not on file Sexual Orientation Not on file Plan of Treatment Health Maintenance Due Date Last Done Comments BONE DENSITY TESTING 1935 MEDICARE AWV 12 MONTHS 1935 DTAP/TDAP/TD VACCINES (1 - Tdap) 02/08/1955 PNEUMOCOCCAL VACCINE 50+ (1 of 1 - PCV) 02/08/1986 ZOSTER VACCINE (1 of 2) 02/08/1986 Respiratory Syncytial Virus (RSV) Vaccine Pt: or over 60 yrs (1 - 1-dose 75+ series) 02/08/2011 COVID-19 VACCINE ( - 2023-2 5 season) 2023 INFLUENZA VACCINE (#1) 2023 11/25/2015 DEPRESSION SCREENING 03/08/2024 HEPATITIS B VACCINE Aged Out No longe r eligible based on patient's age to complete this topic HIB VACCINE Aged Out No longer eligi ble based on patient's age to complete this topic HPV VACCINE Aged Out No longer eligi ble based on patient's age to complete this topic MENINGOCOCCAL (Group B) VACCINE Aged Out No longer eligible based on patient's age to complete this topic MENINGOCOCCAL VACCINE Aged Out No ronnie michelle eligible based on patient's age to complete this topic Care Teams Gift Shop Manager Relationship Specialty Start Date End Date Ruddy Holliday DO [address] [facility] [place], [place] [id number] PCP - General 10/07/17
--- OUTSIDE RECORDS SUMMARY | 2024-05-12 12:24 | XMS_ITS | Continuity of Care Document ---
Author Organization [facility] Address [address] [place] [address] Dr Ed[address] [place] [phone] Phone Care Team Providers Care Custom Furrier Name Role Phone Maranda Lainez Unavailable Unavailable Procedures Procedure Date Eye Exam & Treatment Refraction BF Polycarb Sphcyl [place]auula To +/-4d .122d [facility] Post-op Follow-up Visit After Cataract Laser Surgery Post-op Follow-up Visit After Cataract Laser Surgery Eye Exam & Treatment Office/outpatient Visit, Est Eye Exam Established Pt BF Polycarb Sphcyl [place] To +/-4d .122d Anti-reflective Coating Guerrilla RF [employer] Frames Deluxe [facility] BF Polycarb Sphcyl [place] To +/-4d .122d Anti-reflective Coating Polycarb Lens Per Lens Post-op Follow-up Visit Post-op Follow-up Visit Post-op Follow-up Visit Remove Cataract, Insert Lens Eye Exam & Treatment [employer] BF Polycarb Sphcyl [place] To +/-4d .122d Anti-reflective Coating Guerrilla RF Medical Office/outpatient Visit, Est Visual Functional Status Assessed Refraction Office/outpatient Visit, Est Visual Functional Status Assessed Eye Exam & Treatment Visual Functional Status Assessed Advance Directives Directive Yes / No Effective Date File Name No Information Encounters Encounter Description Practice Location Reason(s) For Visit Diagnoses Date Provider Providers Copied on Encounter [facility], [address] [place] [address] [address], [place], [place], [id number], tel:[phone] [facility] No Information 0 Fatou Vasquez [address] , [address], [place], [address], . tel:[phone] [facility], [address], [place], [place], [id number], tel:[phone] [facility] No Information 9 [facility] . [address], [facility] [address], [place], [address], . tel:[phone] Referring Provider: Maranda Toussaint, [address], [place], [place], [facility]. tel:[phone] g Provider: Renee Monroe, [address] [place], [address]. tel:[phone] [facility], [address] [place] [address] [address], [place], [place], [address], [place] tel:[phone] [facility] No Information 9 Fatou Vasquez [address] , [address], [place], [address], [place]. tel:[phone] [facility], [address], [place], [place], [address], [place] tel:[phone] [facility] No Information 9 Fatou Vasquez [address] , [address], [place], [place], [facility], [place]. tel:[phone] [facility], [address] [place] [address] [address], [place], [place], [address], [place] tel:[phone] [facility] No Information Apr-1 0-200 9 Fatou Maranda. [address] , [address], [place], [place], [facility], [place]. tel:[phone] [facility], [address] [place] [address] [address], [place], [place], [address], [place] tel:[phone] [facility] No Information Mar-0 4-200 9 Fatou Cabreran. [address], [place], [place], [facility], [place]. tel:[phone] [facility], [address] [place] [address] [address], [place], [place], [address], [place] tel:[phone] [facility] No Information Mar-0 3-200 9 Fatou Maranda. [address], [place], [place], [facility], [place]. tel:[phone] Office/outpat ient Visit, Est [facility], [address] [place] [address] [address], [place], [place], [id number], [place] tel:[phone] [facility] No Information Aug-2 6-200 8 Fatou Cabreran. [address], [place], [place], [facility], [place]. tel:[phone] [facility], [address] [place] [address] [address], [place], [place], [address], [place] tel:[phone] [facility] No Information Nirmal-0 8-200 8 Fatou Cabreran. [address] , [address], [place], [facility], [place]. tel:[phone] [facility], [address] [place] [address] [address], [place], [place], [address], [place] tel:[phone] [facility] No Information July-2 8-200 8 [employer] . [address], [address], [place], [place], [address], [place]. tel:[phone] Consulting Provider: Jacque Peterson, [address] [place] [address], [address]. tel:[phone] [facility], [address] [place] [address] [address], [place], [place], [address], [place] tel:[phone] [facility] No Information July-1 2-200 8 [employer] . [address], [address], [place], [place], [address], [place]. tel:[phone] Consulting Provider: Jacque Peterson, [address] [place] [address], [address]. tel:[phone] [facility], [address] [place] [address] [address], [place], [place], [address], [place] tel:[phone] [facility] No Information July-0 7-200 8 [employer] . [address], [address], [place], [place], [address], [place]. tel:[phone] Referring Provider: Maranda Toussaint, [address], [place], [address]. tel:[phone] g Provider: Renee Monroe, [address] [place], [address]. tel:[phone] [facility], [address], [place], [place], [address], [place] tel:[phone] [facility] No Information Jun-2 9-200 8 Fatou Low. [address], [place], [address], [place]. tel:[phone] [facility], [address], [place], [place], [address], [place] tel:[phone] [facility] No Information Apr-0 8-200 8 Fatou Low. [address], [place], [place], [facility], [place]. tel:[phone] [facility], [address], [place], [place], [address], [place] tel:[phone] [facility] No Information Mar-2 7-200 8 Sosa OD Gio. [address], [place], [place], [facility], [place]. tel:[phone] [facility], [address] [place] [address] [address], [place], [place], [address], [place] tel:[phone] Nov [facility] No Information May-2 6-200 8 Fatou Low. [address], [place], [place], [facility], [place]. tel:[phone] [facility], [address], [place], [place], [address], [place] tel:[phone] [facility] No Information Feb-2 6-200 8 Fatou Low. [address], [place], [facility], [place]. tel:[phone] Referring Provider: Maranda Toussaint, [address], [place], [address]. tel:[phone] [facility], [address] [place] [address] [address], [place], [place], [address], [place] tel:[phone] [facility] No Information Aug-1 0-200 7 [employer] . [address], [address], [place], [place], [address], [place]. tel:[phone] Referring Provider: Maranda Toussaint, [address], [place], [address]. tel:[phone] saavedra Provider: Renee Monroe, [address] [facility], [place], [address]. tel:[phone] Office/outpat ient Visit, [facility], [address], [place], [place], [address], [place] tel:[phone] [facility] No Information 0-200 7 Lainez Maranda. [address] , [address], [place], [address], [place]. tel:[phone] Office/outpat ient Visit, [facility], [address], [place], [place], [address], [place] tel:[phone] [facility] No Information 6200 7 Estefany Mcarthur. [address] [place], [place], [facility], [place]. tel:[phone] [facility], [address], [place], [place], [address], [place] tel:[phone] [facility] No Information 4-200 7 Lainez Maranda. [address], [place], [place], [facility], . tel:[phone] Family History Family Member Type Diagnosis Age At Onset No Information Payers Payer name Insurance type Covered green party ID Authoriza tion(s) [place] [id number] Social History Type Description Quantity Date Captured [...]
--- OUTSIDE RECORDS SUMMARY | 2024-05-12 12:24 | XMS_ITS | Referral Summary ---
Author Organization [facility] Address [address] [place] [address] Care Team Providers Care Customer Response Representative Name Role Phone Ruddy Holliday Primary Care Provider [phone] Source Comments [facility],non-owned Affiliates and Associated Physician Practices is amultiple site organization consisting of ambulatory clinics and hospital sitesin [place], [place], [place] and [place]. This disclosure is being madepursuant to the Care Everywhere program and may not contain all information available regarding this patient. Last updated 17.[facility] Immunizations Name Administration Dates Next Due INFLUENZA VACCINE, HIGH-DOSE , QUADR. (FLUZONE HIGH-DOSE QUADRIVALENT; 65Y+), 0.7 ML (HD-IIV4) 11/25/2015 Social History Tobacco Use Types Packs/Day Years Used Date Smoking Tobacco: Never Assessed Sex and Gender Information Value Date Recorded Sex Assigned at Not on file Gender Identity Not on file Sexual Orientation Not on file Plan of Treatment Not on file Care Teams Customer Response Representative Relationship Specialty Start Date End Date Ruddy Holliday DO [address] [facility] [address] [place] [address] PCP - General 10/07/17
--- OUTSIDE RECORDS SUMMARY | 2024-05-12 12:24 | XMS_ITS | Patient Health Summary ---
Author Organization [facility] Address [address] [place] [address] Care Team Providers Care Rug Cleaner Hand Name Role Phone Ruddy Holliday DO Primary Care Provider [phone] Note from [facility],non-owned Affiliates and Associated Physician Practices is amultiple site organization consisting of ambulatory clinics and hospital sitesin [place], [place], [place] and [place]. This disclosure is being madepursuant to the Care Everywhere program and may not contain all information available regarding this patient. Last updated 17.[facility] Immunizations * INFLUENZA VACCINE, HIGH-DOSE, QUADR. (FLUZONE HIGH-DOSE QUADRIVALENT; 65Y+), 0.7 ML (HD-IIV4)(Given 11/25/2015) Social History Tobacco Use Types Packs/Day Years Used Date Smoking Tobacco: Never Assessed Sex and Gender Information Value Date Recorded Sex Assigned at Not on file Gender Identity Not on file Sexual Orientation Not on file Procedures * DERMATOPATHOLOGY(Performed 09/01/2023) * DERMATOPATHOLOGY(Performed 06/18/2020) * DERMATOPATHOLOGY(Performed 02/13/2020) * DERMATOPATHOLOGY(Performed 11/17/2017) * DERMATOPATHOLOGY(Performed 10/06/2017) * DERMATOPATHOLOGY(Performed 03/17/2017) * DERMATOPATHOLOGY(Performed 05/01/2014) * DERMATOPATHOLOGY(Performed 01/23/2014) Results * DERMATOPATHOLOGY (09/01/2023 12:00 AM CDT) Only the most recent of8 resultswithin the time period is included. Case Report Dermatopathology Report Case: [id number] Authorizing Provider: Trev Finnegan MD Collected: 09/01/2023 12:00 AM Ordering Location: [facility] - Received: 09/06/2023 11:04 AM DermPath Lab Pathologist: Mandy Macias MD Specimen: Skin, left side superiorly on nose 1:17 PM CDT DERMATOPATHOLOGY LABORATORY Final Diagnosis Specimen A. SKIN, left side superiorly on nose: BASAL CELL CARCINOMA, NODULAR TYPE (C44.311) 1:17 PM CDT DERMATOPATHOLOGY LABORATORY Clinical History R/O BCC 1:17 PM CDT DERMATOPATHOLOGY LABORATORY Gross Description Specimen A: Received is one formalin filled container labeled with the patient's name and designated left side superiorly on nose. The specimen consists of a shave biopsy measuring 4x4x2 mm. Jar 0. 1:17 PM CDT DERMATOPATHOLOGY LABORATORY Microscopic Description Specimen A. SKIN, left side superiorly on nose: Within the dermis there are aggregates of basaloid cells with a high nuclear to cytoplasmic ratio and peripheral palisading. 1:17 PM CDT DERMATOPATHOLOGY LABORATORY Disclaimer An external and internal positive and negative controls are appropriate for the histochemical, immunohistochemical and immunofluorescence stain(s) in this case (if any), except where stated explicitly. The performance characteristics of the stain(s) cited in this report were developed and its performance characteristic determined by the Dermatopathology Laboratory at [facility], directed by Dr. Janae Albarran. These tests need not be, and therefore are not, approved by the [place] Food and Drug Administration. The tests are used for clinical purposes. Billing Codes Specimen Charges Stain Charges 41472 1 1:17 PM CDT DERMATOPATHOLOGY LABORATORY Embedded Images 1:17 PM CDT DERMATOPATHOLOGY LABORATORY Pathology/Cytolog y TISSUE SPECIMEN FROM SKIN / Unknown 09/01/2023 09/06/2023 11:04 AM CDT Trev Finnegan MD LAB - PATHOLOGY/CYTO LOGY ORDERABLES DERMATOPATHOLOGY LABORATORY [facility] - Department of D[facility] [facility], [address]rd Floor [address] [phone] Care Teams Rug Cleaner Hand Relationship Specialty Start Date End Date Ruddy Holliday DO [address] [place] [address] PCP - General 10/07/17
--- OUTSIDE RECORDS SUMMARY | 2024-05-12 12:24 | XMS_ITS | Encounter Summary ---
Author Organization [facility] Address [address] [place] [address] Care Team Providers Care Target Trimmer Name Role Phone Ruddy Holliday DO Primary Care Provider [phone] Encounter Details Date Type Department Care Team (Late st Contact Info) Description 06/19/2020 Lab Requisition [facility] Derm[facility] Lab [address] [place] [id number] Trev Finnegan MD [address] [place], [place] [id number] Social History Tobacco Use Types Packs/Day Years Used Date Smoking Tobacco: Never Assessed Sex and Gender Information Value Date Recorded Sex Assigned at Not on file Gender Identity Not on file Sexual Orientation Not on file documented as of this encounter Plan of Treatment Not on file documented as of this encounter Procedures Procedure Name Priority Date/Time Associated Diagnosis Comments DERMATOPATHOLOGY Routine 06/18/2020 12:0 0 AM CDT documented in this encounter Results * DERMATOPATHOLOGY (06/18/2020 12:00 AM CDT) Case Report Dermatopathology Report Case: [id number] Authorizing Provider: Trev Finnegan MD Collected: 06/18/2020 12:00 AM Ordering Location: [facility] DermPath Lab Received: 06/19/2020 01:14 PM Pathologist: Mandy Macias MD Specimen: Skin, left mid extensor radial forearm 11:55 AM CDT DERMATOPATHOLOGY LABORATORY Amended Report Date of collection changed from 06/19/20 to 06/18/20. 11:55 AM CDT DERMATOPATHOLOGY LABORATORY Final Diagnosis Specimen A. SKIN, left mid extensor radial forearm: ACTINIC KERATOSIS, LICHENOID (L57.0) 11:55 AM CDT DERMATOPATHOLOGY LABORATORY Amendment electronically signed by Mandy Macias MD on 07/04/2020 at 11:54 AM Clinical History R/O BCC, SCC, ISK. 11:55 AM CDT DERMATOPATHOLOGY LABORATORY Gross Description Specimen A: Received is one formalin filled container labeled with the patient's name and designated left mid extensor radial forearm. The specimen consists of a shave biopsy measuring 2x0e4ex. Jar 0. 11:55 AM CDT DERMATOPATHOLOGY LABORATORY Microscopic Description Specimen A. SKIN, left mid extensor radial forearm: There is focal parakeratosis. The lower half of the epidermis shows disorderly maturation of keratinocytes with nuclear pleomorphism. The dermis shows a band-like, chronic inflammatory infiltrate with occasional apoptotic keratinocytes and some basal vacuolar alteration. 11:55 AM CDT DERMATOPATHOLOGY LABORATORY Disclaimer An external and internal positive and negative controls are appropriate for the histochemical, immunohistochemical and immunofluorescence stain(s) in this case (if any), except where stated explicitly. The performance characteristics of the stain(s) cited in this report were developed and its performance characteristic determined by the Dermatopathology Laboratory at [facility], directed by Dr. Janae Albarran. These tests need not be, and therefore are not, approved by the [place] Food and Drug Administration. The tests are used for clinical purposes. Billing Codes Specimen Charges Stain Charges 91680 1 11:55 AM CDT DERMATOPATHOLOGY LABORATORY Embedded Images 11:55 AM CDT DERMATOPATHOLOGY LABORATORY Pathology/Cytolog y TISSUE SPECIMEN FROM SKIN / Unknown 06/18/2020 06/19/2020 1:14 PM CDT Trev Finnegan MD LAB - PATHOLOGY/CYTO LOGY ORDERABLES DERMATOPATHOLOGY LABORATORY [facility] - Department of Dermatology [facility] [address] [facility], [address] [phone] documented in this encounter Visit Diagnoses Not on filedocumented in this encounter Care Teams Target Trimmer Relationship Specialty Start Date End Date Ruddy Holliday DO [address] [address] [place] [address] PCP - General 10/07/17 documented as of this encounter
--- OUTSIDE RECORDS SUMMARY | 2024-05-12 12:24 | XMS_ITS | CONTINUITY OF CARE DOCUMENT ---
Author Name cee, cee Address Unknown Organization [facility] Address [address] [place] [address] Phone [phone] Care Team Providers Care Charge Poster Name Role Phone Angel LUKE, Caitlin Unavailable [phone] Douglas Hatfield MD Unavailable [phone] Douglas Hatfield MD Unavailable PROBLEMS Condition Status Date Provider Notes Murmur active Meek Bundy Shortness of breath active Caitlin Ortiz MD Chest pain nl nuclear stress test 2014 active Caitlin Ortiz MD HTN essential--echo ef nl, 01/2024 active R maycol Kraft GERD active Caitlin Ortiz MD Hypercholesterolemia, mixed active Lory Gr uenenfelder Hypothyroidism active Caitlin Ortiz MD Breast cancer- 02/2017 diagn osis, 2 malignant cysts, no chemo/radiation just lumpectomy active Caitlin Ortiz MD Dizziness <50% b/l stenosis carotid [id number] active Caitlin Ortiz MD Aortic stenosis, mild active Juan Kraft ENCOUNTERS Date Type Provider Location Encounter Diag nosis - In-person encounter Office Visit Ciatlin Ortiz MD [facility] HTN essential--echo ef nl, ortic stenosis, mild - In-person encounter Office Visit Caitlin Ortiz MD [facility] HTN essential--echo ef nl, 01/2024 - In-person encounter Office Visit Caitlin Ortiz MD [facility] Aortic stenosis, mild - In-person encounter Office Visit Caitlin Ortiz MD [facility] - In-person encounter Office Visit Caitlin Ortiz MD [facility] - In-person encounter Office Visit Caitlin Ortiz MD [facility] HTN essential--echo ef nl, 01/2024 - In-person encounter Office Visit Caitlin Ortiz MD [facility] - In-person encounter Office Visit Caitlin Ortiz MD [facility] Chest pain nl nuclea r stress test 2014 - In-person encounter Office Visit Caitlin Ortiz MD [facility] - In-person encounter Office Visit Caitlin Ortiz MD [facility] - In-person encounter Office Visit Caitlin Ortiz MD [facility] - In-person encounter Office Visit Caitlin Ortiz MD [facility] - In-person encounter Office Visit Caitlin Ortiz MD [facility] - In-person encounter Office Visit Caitlin Ortiz MD [facility] - In-person encounter Office Visit Caitlin Ortiz MD [facility] Dizziness <50% b/l stenosis carotid /18 - In-person encounter Office Visit Caitlin Ortiz MD [facility] - In-person encounter Office Visit Caitlin Otriz MD [facility] Breast cancer- 02/2017 diagnosis, 2 malignant cysts, no chemo/radiation just lumpectomy - In-person encounter Office Visit Caitlin Ortiz MD [facility] Breast cancer- 02/2017 diagnosis, 2 malignant cysts, no chemo/radiation just lumpectomy - In-person encounter Office Visit Caitlin Ortiz MD [facility] - In-person encounter Office Visit Caitlin Ortiz MD [facility] - In-person encounter Office Visit Caitlin Ortiz MD [facility] - In-person encounter Office Visit Caitlin Ortiz MD [facility] - In-person encounter Office Visit Caitlin Ortiz MD [facility] - In-person encounter Office Visit Caitlin Ortiz MD [facility] Shortness of breathChest pain nl nuclear stress test 2014HTN essential--echo ef nl, 01/2024GERDHypercholestero lemia, mixedHypothyroidism VITAL SIGNS Date Observation Value Provider Body Mass Index (Ratio) 24.37 kg/m2 Cecil Ortiz MD blood pressure, diastolic 69 mm[Hg] Quan calero [facility] blood pressure, systolic 140 mm[Hg] Tasia angelica [facility] oxygen saturation, oximetry 98 % [facility] weight E&M 142 [lb_av] Miesha [facility] height E&M 64 [in_i] [facility] Body Mass Index (Ratio) 24.41 kg/m2 Cecil Ortiz MD blood pressure, diastolic 72 mm[Hg] Nori nkLogzay blood pressure, systolic 128 mm[Hg] Deb Romanogzay weight E&M 142.2 [lb_av] Kayy Graff blood pressure, cuff size regular Suresh Graff blood pressure, diastolic 72 mm[Hg] Suresh Graff blood pressure, systolic 128 mm[Hg] Tab maricruza [place] oxygen saturation, oximetry 97 % Kayy [place] respiratory rate E&M 12 /min Kayy [place] pulse rate 93 /min Kayy [place] height E&M 64 [in_i] [facility] Body Mass Index (Ratio) 24.03 kg/m2 Cecil Ortiz MD blood pressure, cuff size regular [facility] blood pressure, diastolic 61 mm[Hg] [facility] blood pressure, systolic 120 mm[Hg] [facility] oxygen saturation, oximetry 97 % [facility] respiratory rate E&M 16 /min Claudette Vincenzo ille pulse rate 75 /min [facility] height E&M 64 [in_i] [facility] weight E&M 140 [lb_av] [facility] Body Mass Index (Ratio) 23.69 kg/m2 Cecil Ortiz MD blood pressure, cuff size regular Ke rri Gruenenfeld blood pressure, diastolic 80 mm[Hg] Vernon rri Gruenenfelder blood pressure, systolic 132 mm[Hg] Otilia ri Jeremyuenenfelder oxygen saturation, oximetry 98 % Lory Gruenenfelder respiratory rate E&M 12 /min Lory G ruenenfelder pulse rate 73 /min Lory Gruenenfe lder weight E&M 138 [lb_av] Lory Gruenenfe lder height E&M 64 [in_i] Lory Gruenenfe lder Body Mass Index (Ratio) 24.03 kg/m2 Cecil Ortiz MD blood pressure, cuff size regular Ke rri Gruenenfeldkiran blood pressure, diastolic 57 mm[Hg] Vernon Maldonadoelder blood pressure, systolic 133 mm[Hg] Otilia Maldonadoelder oxygen saturation, oximetry 97 % Lory Grtrannfelder respiratory rate E&M 14 /min Lory Miranda ruenenfelder pulse rate 78 /min Lory Steiner lder weight E&M 140 [lb_av] Lory Maldonadoe lder height E&M 64 [in_i] Lory Steiner lder Body Mass Index (Ratio) 23.51 kg/m2 Cecil Ortiz MD blood pressure, diastolic 62 mm[Hg] Sa ra Rodriguez blood pressure, systolic 122 mm[Hg] Amy a Rodriguez oxygen saturation, oximetry 96 % Peg Rodriguez respiratory rate E&M 17 /min Peg Si ms pulse rate 79 /min Peg Rodriguez blood pressure, cuff size regular Sa ra Rodriguez weight E&M 137 [lb_av] Peg Rodriguez height E&M 64 [in_i] Peg Rodriguez blood pressure, diastolic 79 mm[Hg] Li nkLogic blood pressure, systolic 183 mm[Hg] Deb kLogic Body Mass Index (Ratio) 24.54 kg/m2 Cecil Ortiz MD blood pressure, cuff size regular Sa ra Rodriguez blood pressure, diastolic 79 mm[Hg] Sa ra Rodriguez blood pressure, systolic 183 mm[Hg] Amy a Rodriguez oxygen saturation, oximetry 97 % Peg Rodriguez respiratory rate E&M 79 /min Peg Si ms pulse rate 79 /min Peg Rodriguez weight E&M 143 [lb_av] Peg Rodriguez height E&M 64 [in_i] Peg Rodriguez Body Mass Index (Ratio) 25.16 kg/m2 Cecil Ortiz MD blood pressure, diastolic 70 mm[Hg] Carmela Camacho Fernando blood pressure, systolic 128 mm[Hg] Susy King oxygen saturation, oximetry 98 % Fuad King respiratory rate E&M 16 /min Amy King pulse rate 74 /min Fuad [place] weight E&M 146.6 [lb_av] Fuad powellon height E&M 64 [in_i] Fuad Beltrán nson Body Mass Index (Ratio) 24.54 kg/m2 Cecil Ortiz MD blood pressure, cuff size regular Cy ntjuliusa Jorgensen blood pressure, diastolic 70 mm[Hg] Cy nthia Jorgensen blood pressure, systolic 140 mm[Hg] Gina thia Jorgensen pulse rate 67 /min Amarilys Campbel l oxygen saturation, oximetry 96 % Amarilys Jorgensen respiratory rate E&M 16 /min Amarilys Jorgensen weight E&M 143 [lb_av] Amarilys Campbel l height E&M 64 [in_i] Amarilys Campbel l Body Mass Index (Ratio) 24.89 kg/m2 Cecil Ortiz MD blood pressure, resting Yes Deng denia Eugene blood pressure, diastolic 71 mm[Hg] kirsten Eugene blood pressure, systolic 165 mm[Hg] [facility] oxygen saturation, oximetry 97 % Jad Eugene respiratory rate E&M 18 /min Chriss Eugene pulse rate 73 /min Jad Trejo dominique weight E&M 145 [lb_av] Jad Trejo dominique height E&M 64 [in_i] Jad Trejo dominique Body Mass Index (Ratio) 25.06 kg/m2 Cecil Ortiz MD blood pressure, cuff size regular Ke rri Gruenenfmirtha blood pressure, diastolic 60 mm[Hg] Ke rri Gruenenfeldkiran blood pressure, systolic 148 mm[Hg] Otilia ri Jennifernfmirtha oxygen saturation, oximetry 97 % Lory Sergio respiratory rate E&M 16 /min Lory turcios pulse rate 82 /min Lory Obdulia lder weight E&M 146 [lb_av] Lory Grlorettanekervine lder height E&M 64 [in_i] Lory Grlorettanenfe lder pulse rate, sitting, left 77 /min Ke rri Ravinnenfmirtha orthostatic blood pr essure, sitting, left arm, diastolic 80 Lory Grtrannfmirtha orthostatic blood pr essure, sitting, left arm, systolic 150 Lory Sergio height E&M 64 [in_i] Lory Ravinnekervine lder height in centimeters E&M 162.56 cm Ke rri Gruenenfmirtha blood pressure, diastolic 80 mm[Hg] Benji ismichelle [place] blood pressure, systolic 152 mm[Hg] Syl Kincaidby height E&M 64 [in_i] Macey [place] height in centimeters E&M 162.56 cm Kr isty [place] pulse rate, sitting, right 71 /min K errhaley Alicianegera orthostatic blood pr essure, sitting, right arm, diastolic 110 Lory Sergio orthostatic blood pr essure, sitting, right arm, systolic 180 Lory Sergio height E&M 64 [in_i] Lory Obdulia donaldsoner height in centimeters E&M 162.56 cm Ke maureen Sergio Body Mass Index (Ratio) 24.71 kg/m2 Cecil Ortiz MD blood pressure, resting Yes Brit josefa Block pulse rate 83 /min Albertina Block oxygen saturation, oximetry 98 % Albertina Block blood pressure, diastolic 90 mm[Hg] Br ittany Block blood pressure, systolic 162 mm[Hg] Liza ttany Block weight E&M 144 [lb_av] Albertina Block respiratory rate E&M 16 /min Brittan y Block height E&M 64 [in_i] Albertina Block Body Mass Index (Ratio) 24.71 kg/m2 Cecil Ortiz MD blood pressure, diastolic 80 mm[Hg] Ja cob Nacht blood pressure, systolic 130 mm[Hg] Parrish ob Nacht oxygen saturation, oximetry 98 % Tonsha Vicente respiratory rate E&M 16 /min Tonsha Vicente pulse rate 68 /min Tonsha Vicente weight E&M 144 [lb_av] Tonsha Vicente height E&M 64 [in_i] Tonsha Vicente Body Mass Index (Ratio) 24.20 kg/m2 Cecil Ortiz MD respiratory rate E&M 16 /min Tonsha Vicente blood pressure, resting Yes Tons lehman Vicente blood pressure, diastolic 80 mm[Hg] To nsha Vicente blood pressure, systolic 147 mm[Hg] Ton sha Vicente oxygen saturation, oximetry 98 % [facility] pulse rate 79 /min [facility] Vicente weight E&M 141 [lb_av] Tons Vicente height E&M 64 [in_i] [facility] Vicente Body Mass Index (Ratio) 25.06 kg/m2 Cecil Ortiz MD blood pressure, cuff size regular Cy gaby Jorgensen blood pressure, diastolic 60 mm[Hg] Cy gaby Jorgensen blood pressure, systolic 148 mm[Hg] Gina alejandra Jorgensen oxygen saturation, oximetry 98 % Amarilys Jorgensen respiratory rate E&M 16 /min Amarilys Jorgensen pulse rate 65 /min Amarilysalejandra Coronabel l weight E&M 146 [lb_av] Amarilys Campbel l height E&M 64 [in_i] Amarilys Campbel l Body Mass Index (Ratio) 24.71 kg/m2 Cecil Ortiz MD blood pressure, diastolic 88 mm[Hg] Da peter Sravan blood pressure, systolic 152 mm[Hg] Dac ia Sravan oxygen saturation, oximetry 95 % Kerri Sravan respiratory rate E&M 16 /min Kerri V oss pulse rate 72 /min Kerri Sravan weight E&M 144 [lb_av] Kerri Sravan height E&M 64 [in_i] Kerri Sravan Body Mass Index (Ratio) 24.58 kg/m2 Cecil Ortiz MD blood pressure, diastolic 69 mm[Hg] Carmela King blood pressure, systolic 149 mm[Hg] Susy King oxygen saturation, oximetry 97 % Fuad King respiratory rate E&M 18 /min Amy King pulse rate 65 /min Fuad [place] weight E&M 143.2 [lb_av] Fuad caraballo height E&M 64 [in_i] Fuad Beltrán nsjohnson Body Mass Index (Ratio) 24.37 kg/m2 Andr ia Seun blood pressure, diastolic 80 mm[Hg] Da peter Sravan blood pressure, systolic 122 mm[Hg] Dac ia Sravan oxygen saturation, oximetry 96 % Kerri Sravan respiratory rate E&M 18 /min Kerri V oss pulse rate 86 /min Kerri Sravan weight E&M 142 [lb_av] Kerri Sravan height E&M 64 [in_i] Kerri Sravan Body Mass Index (Ratio) 24.06 kg/m2 Cecil Ortiz MD blood pressure, diastolic 80 mm[Hg] [facility] blood pressure, systolic 146 mm[Hg] Kil jennifer Parra oxygen saturation, oximetry 97 % Gentry Parra respiratory rate E&M 16 /min [place] Parra pulse rate 82 /min [place] Parra weight E&M 140.2 [lb_av] Gentry Parra height E&M 64 [in_i] Gentry Parra Body Mass Index (Ratio) 25.74 kg/m2 Cecil Ortiz MD blood pressure, cuff size regular Ke rri Sergio blood pressure, diastolic 70 mm[Hg] Ke rri Sergio blood pressure, systolic 130 mm[Hg] Otilia Hill oxygen saturation, oximetry 97 % Lory Hill respiratory rate E&M 16 /min Lory turcios pulse rate 76 /min Lory Steiner lder weight E&M 150 [lb_av] Lory Steiner lder height E&M 64 [in_i] Lory Obdulia lder blood pressure, diastolic 71 mm[Hg] Me amanda Henson blood pressure, systolic 145 mm[Hg] Susannah tamica Henson pulse rate 68 /min Nevin Henson oxygen saturation, oximetry 97 % Nevin Henson respiratory rate E&M 15 /min Nevin Henson Body Mass Index (Ratio) 26.09 kg/m2 Tammie ssa Henson weight E&M 152 [lb_av] Nevin Henson blood pressure, diastolic 68 mm[Hg] Carmela King blood pressure, systolic 145 mm[Hg] Susy King pulse rate 64 /min Fuad Beltrán nson oxygen saturation, oximetry 94 % Fuad King respiratory rate E&M 16 /min Amy King Body Mass Index (Ratio) 26.05 kg/m2 Yelitza King weight E&M 151.8 [lb_av] Fuad Camp enson Body Mass Index (Ratio) 25.74 kg/m2 [facility] ssa Henson blood pressure, diastolic 73 mm[Hg] Me amanda Henson blood pressure, systolic 137 mm[Hg] Susannah tamica Henson pulse rate 78 /min Nevin Henson oxygen saturation, oximetry 98 % Nevin Henson respiratory rate E&M 15 /min Nevin Henson weight E&M 150 [lb_av] Nevin Henson Body Mass Index (Ratio) 26.26 kg/m2 Zafar i Sergio blood pressure, diastolic 88 mm[Hg] Ke rri Sergio blood pressure, systolic 130 mm[Hg] Ker ri Sergio pulse rate 89 /min Lory Obdulia lder oxygen saturation, oximetry 96 % Lory Maldoandomirtha respiratory rate E&M 16 /min Lory gustafsonmirtha weight E&M 153 [lb_av] Lory Steiner lder height E&M 64 [in_i] Lory Steiner lder ALLERGIES No Known Drug Allergies RESULTS Date Observation Value Provider Reference Range Interpretation Location 1 hemoglobin A1C, blood, as % of total hemoglobin 5.7 % [facility] 4.8-5.6 High 1 free thyroxine index 1.9 [facility] 1.2-4.9 1 triiodothyronine resin uptake 23 % [facility] 24-39 Low 1 thyroxine, serum, total 8.2 ug/dL [facility] 4.5-12.0 1 thyroid stimulating hormone, serum 1.520 u[IU]/mL [facility] 0.450-4.500 1 lipoprotein, beta, serum, point, quantitative, calculated 66 mg/dL [facility] 0-99 1 HDL cholesterol, serum 50 mg/dL [facility] >39 1 triglyceride, serum, random 158 mg/dL [facility] 0-149 High 1 cholesterol, serum 143 mg/dL [facility] [id number] 3008/01/2 1 platelet count 335 X10E3/UL [facility] 596-365 4137/01/2 1 red blood cell distribution width 12.9 % [facility] 11.7-15.4 1 mean corpuscular hemoglobin concentration, RBC 33.2 G/DL [facility] 31.5-35.7 1 mean corpuscular hemoglobin, RBC 33.4 pg [facility] 26.6-33.0 High 1 mean corpuscular volume, RBC 101 fL [facility] 79-97 High 1 hematocrit, blood 37.6 % [facility] 34.0-46.6 1 hemoglobin, blood 12.5 g/dL [facility] 11.1-15.9 1 erythrocyte (RBC) count 3.74 X10E6/UL [facility] 3.77-5.28 Low 1 leukocyte count, blood 7.9 X10E3/UL [facility] 3.4-10.8 1 alanine aminotransferase (SGPT), serum 15 1/L [facility] 0-32 1 aspartate aminotransferase (SGOT), serum 15 1/L [facility] 0-40 1 alkaline phosphatase, serum 35 1/L [facility] 39-117 Low 1 bilirubin, serum, total <0.2 mg/dL [facility] 0.0-1.2 1 albumin/globulin ratio, serum 1.4 [facility] 1.2-2.2 1 globulin, serum 3.0 [facility] 1.5-4.5 1 albumin, serum 4.1 g/dL [facility] 3.6-4.6 1 protein, total, serum 7.1 g/dL [facility] 6.0-8.5 1 calcium, serum 9.7 mg/dL [facility] 8.7-10.3 1 carbon dioxide, venous blood 24 mmol/L [facility] 20-29 1 chloride, serum 106 mmol/L [facility] 96-106 1 potassium, serum 4.6 mmol/L [facility] 3.5-5.2 1 sodium, serum 141 mmol/L [facility] 687-053 5021/01/2 1 urea nitrogen/creatinine ratio, serum 14 [facility] 12-28 1 eGFR if 53 mL/min/{1 .73_m2} [facility] >59 Low 1 eGFR if not 46 mL/min/{1 .73_m2} [facility] >59 Low 1 creatinine, serum 1.11 mg/dL [facility] 0.57-1.00 High 1 urea nitrogen, blood 15 mg/dL [facility] 8-27 1 blood glucose, random 93 mg/dL [facility] 65-99 HISTORY OF MEDICATION USE Medication Status Instructions Dates Provider Indications Com ments simvastatin 20 mg tablet active Take 1 tablet by mouth once a day Lory Hill losartan 50 mg tablet active Juan Kraft omeprazole 40 mg capsule,delayed release(DR/EC) active Juan Kraft budesonide-formot rod 160-4.5 mcg/actuation HFA aerosol inhaler completed - Juan Kraft simvastatin 20 mg tablet completed TAKE 1 TABLET DAILY - Lory Hill lisinopril 20 mg tablet completed TAKE 1 TABLET TWICE A DAY - Juan Kraft amlodipine 5 mg tablet active TAKE 1 TABLET DAILY Effie Shen metoprolol succinate 50 mg tablet extended release 24 hr active TAKE 1 TABLET DAILY Linda Snyder lisinopril 20 mg tablet completed TAKE 1 TABLET BY MOUTH TWICE DAILY - Linda Snyder docusate sodium 100 mg capsule active TAKE 1 CAPSULE BY MOUTH EVERY DAY Juan Kraft valacyclovir 1 gram tablet active Juan Kraft metoprolol succinate 50 mg tablet extended release 24 hr completed TAKE 1 TABLET BY MOUTH EVERY DAY - Linda Snyder Toprol XL 50 mg tablet extended release 24 hr completed 1 tablet by mouth once a day - Ryan Gil anastrozole 1 mg tablet completed - Kayy Graff amlodipine 10 mg tablet completed 1 tablet by mouth once a day - Lory [place] Breo Ellipta 100-25 mcg/dose blister with device active Jad Eugene CALCIUM + D3 600-200 MG-UNIT ORAL TABLET active 1 tablet once a day Lory [place] NIFEDIPINE ER 60 MG ORAL TABLET EXTENDED RELEASE 24 HOUR completed 1/2 tab. at 7 am 2 tab 1 pm - Jad Eugene Prolia 60 mg/mL syringe completed every 6 months - Juan PAREDES INHUB AEROSOL POWDER BREATH ACTIVATED completed as directed - Jad Eugene ANASTROZOLE 1 MG ORAL TABLET completed take one daily - Lory Hill aspirin 81 mg tablet,delayed release (DR/EC) active 1 tablet once a day Odette Tipton ALIGN ORAL CAPSULE completed once daily X 1 month - Lory Hill simvastatin 20 mg tablet completed Take 1 tablet once a day - Martin Momin MULTIVITAMINS CAPS active 1 tablet once a day Fuad King Toprol XL 50 mg tablet extended release 24 hr completed 1 tablet once a day - Caitlin Ortiz MD Zetia 10 mg tablet active Take 1 once a day [place] VITAMIN E CAPSULE completed take one pill a day - Nevin Henson PRILOSEC 40 MG ORAL CAPSULE DELAYED RELEASE active 1 tablet once a day Fuad King lisinopril 20 mg tablet completed 1 tablet twice a day - Julissa Dumont NP levothyroxine 50 mcg tablet active Take 1 every morning L[place] ALETA ALLERGY 180 MG ORAL TABLET completed take one pill a day - Gentry Parra FELODIPINE ER 5 MG ORAL TABLET EXTENDED RELEASE 24 HOUR completed take one pill at night - Yelitza Livingston RN CALTRATE 600 TABLET completed take one pill a day - Fuad King cyanocobalamin (vitamin B-12) 2,500 mcg tablet active once a day Lory [place] DOCUSATE SODIUM 100 MG ORAL CAPSULE completed daily - Gentry Parra ASPIRIN 81 MG ORAL TABLET completed take one pill a day - Kerri Hinson SOCIAL HISTORY Date Observation Value Provider alcohol use no Juan Stanleycheko smoking status Never smoker Juan Colbysugarcheko alcohol use no Juan sugarcheko smoking status [facility] Patient has n ever smoked. Smoking History: Giovanny gardner has never smoked. Juan Kraft smoking status Never smoker Claudette Graff social history reviewed E&M revi ewed - no changes required [facility] social history E&M Patient has n ever smoked. Smoking History: Giovanny gardner has never smoked. Juan Kraft seatbelt usage 100 % Lory morales exercise type walking Lory shannon physical exercise, f requency, days per week daily Lory Hill smoking status Never smoker Lorymychal morales social history reviewed E&M revi ewed - no changes required Juan wilberto social history E&M Patient has n ever smoked. Smoking History: Giovanny gardner has never smoked. Juan wilberto social history reviewed E&M revi ewed - no changes required Juan wilberto seatbelt usage 100 % Lory morales exercise type walking Lory Lunalorettaweston shannon physical exercise, f requency, days per week daily Lory Hill smoking status Never smoker Lory morales social history reviewed E&M revi ewed - no changes required Juan wilberto social history reviewed E&M revi ewed - no changes required Juan Angelcheko seatbelt usage 100 % Fuad Mak exercise type walking Fuad caraballo physical exercise, f requency, days per week daily Fuad King smoking status Never smoker Fuad Mak social history E&M Patient has n ever smoked. Smoking History: P kendra has never smoked. Juan Kraft social history reviewed E&M revi ewed - no changes required Juan Kraft social history E&M Patient has n ever smoked. Smoking History: Giovanny gardner has never smoked. Caitlin Ortiz MD social history reviewed E&M revi ewed - no changes required Caitlin Ortiz MD seatbelt usage 100 % Amarilys alex exercise type walking Amarilys castaneda physical exercise, f requency, days per week daily Amarilys Jorgensen smoking status Never smoker Amarilys alex social history E&M Patient has n ever smoked. Smoking History: Giovanny gardner has never smoked. Grayson Medina social history reviewed E&M revi ewed - no changes required Grayson Medina seatbelt usage 100 % Jad witt exercise type walking Jad fallon physical exercise, f requency, days per week daily Jad Eugene smoking status Never smoker Jad witt social history E&M Patient has n ever smoked. Smoking History: P kendra has never smoked. Jerardo Wallace social history reviewed E&M revi ewed - no changes required Jerardo Wallace seatbelt usage 100 % Lory morales exercise type walking Lory shannon physical exercise, f requency, days per week daily Lory Hill smoking status Never smoker Lory morales social history E&M Patient has n ever smoked. Smoking History: P kendra has never smoked. Grayson Medina social history reviewed E&M revi ewed - no changes required Grayson Medina seatbelt usage 100 % Albertina Natarajan k exercise type walking Albertina Garcia physical exercise, f requency, days per week daily Albertina Garcia smoking status Never smoker Albertina beltre social history E&M Patient has n ever smoked. Smoking History: P kendra has never smoked. Grayson Medina seatbelt usage 100 % Grayson Hopperaustin exercise type walking Grayson [facility] physical exercise, f requency, days per week daily Grayson Hopper smoking status Never smoker Grayson [facility] social history reviewed E&M revi ewed - no changes required Grayson [facility] social history E&M Patient has n ever smoked. Smoking History: P kendra has never smoked. Caitlin Ortiz MD social history reviewed E&M revi ewed - no changes required Caitlin Ortiz MD seatbelt usage 100 % [facility] exercise type walking [facility] physical exercise, f requency, days per week daily [facility] smoking status Never smoker [facility] social history reviewed E&M revi ewed - no changes required Caitlin Ortiz MD social history E&M Patient has n ever smoked. Smoking History: P kendra has never smoked. Caitlin Ortiz MD seatbelt usage 100 % Amarilys alex exercise type walking Amarilys castaneda physical exercise, f requency, days per week daily Amarilys Jorgensen alcohol use no Amarilys small smoking status Never smoker Amarilys Santamaria isai social history E&M Patient has n ever smoked. Smoking History: P kendra has never smoked. Caitlin Ortiz MD social history reviewed E&M revi ewed - no changes required Caitlin Ortiz MD seatbelt usage 100 % Kerri Sravan exercise type walking Kerri Sravan physical exercise, f requency, days per week daily Kerri Sravan alcohol use no Kerri Sravan smoking status Never smoker Kerri Sravan exercise type walking Ana Curry kiran physical exercise, f requency, days per week daily Ana Willard seatbelt usage 100 % Ana Clarkdes aylin smoking status Never smoker Ana Clarkdes viera alcohol use no Ana Clarkmimi r social history E&M Patient has n ever smoked. Smoking History: P kendra has never smoked. Caitlin Ortiz MD social history reviewed E&M revi ewed - no changes required Caitlin Ortiz MD smoking status Never smoker Caitlin Ortiz MD seatbelt usage 100 % Fuaddes Mak alcohol use no Fuaddes montana seatbelt usage 100 % Anajohnson Clarkdes viera smoking status Never smoker Ana Clarkdes viera alcohol use no Ana Clarkcarlos manuele r social history reviewed E&M revi ewed - no changes required Caitlin Ortiz MD social history E&M S moking History: Giovanny gardner has never smoked. Caitlin Ortiz MD alcohol use no Kerri Sravan smoking status Never smoker Kerri Sravan number of grandchildren Caitlin Ortiz MD T dolores Ortiz MD social history reviewed E&M revi ewed - no changes required Caitlin Ortiz MD social history E&M S moking History: Giovanny gardner has never smoked. Caitlin Ortiz MD alcohol use no Gentry Parra smoking status Never smoker Gentry reyes social history reviewed E&M revi ewed - no changes required Caitlin Ortiz MD alcohol use no Lory Steiner lder smoking status Never smoker Lory Lunabonnie morales social history reviewed E&M revi ewed - no changes required Caitlin Ortiz MD alcohol use no Nevin Henson smoking status Never smoker Nevin Lema n social history reviewed E&M revi ewed - no changes required Caitlin Ortiz MD alcohol use no Fuad montana smoking status Never smoker Fuad Mak social history reviewed E&M revi ewed - no changes required Caitlin Ortiz MD alcohol use no Nevin Henson smoking status Never smoker Nevin Lema n social history reviewed E&M revi ewed - no changes required Caitlin Ortiz MD alcohol use no Lory Steiner lder smoking status Never smoker Lory Rodriguezdes morales FAMILY HISTORY Family Member Condition Mother Family History Breas t Cancer: INSURANCE PROVIDERS Payer name Policy type / Coverage type Morrice red green party ID [facility] [id number] [place] Medicare [id number] ADVANCE DIRECTIVES Name Date DISCUSSED - NO DECISION MADE TREATMENT PLAN Date Name Performer [id number],SJuan i [id number],SJuan i [id number],SJuan i [id number],SJuan i [id number],SJuan i [id number],S, Juan Ahmedza i [id number],S, Juan Ahmedza i [id number],S, Juan Ahmedza i [id number],S, Juan Ahmedza i [id number],S, Juan Ahmedza i [id number],S, Juan Ahmedza i [id number],S, Juan Ahmedza i [id number],S, Juan Ahmedza i [id number],S, Juan medza i [id number],S, Juan medza i [id number],B, Juan medza i [id number],S, Juan Ahmedza i [id number],S, Juan Ahmedza i [id number],S, Juan Ahmedza i [id number],S, Juan Ahmedza i [id number],B, Juan medza i [id number],S, Juan Ahmedza i [id number],B, Juan Ahmedza i [id number],S, Juan Ahmedza i [id number],S, Juan Ahmedza i [id number],B, Juan Ahmedza i [id number],S, Juan Ahmedza i [id number],S, Juan Ahmedza i [id number],B, Juan Schumacher i [id number],W, Juan Schumacher i [id number],B, Juan Schumacher i [id number],B, Caitlin Ortiz MD [id number],B, Caitlin Ortiz MD [id number],S, Caitlin Ortiz MD [id number],B, Caitlin rOtiz MD Cardiology:This visi t has been a part of the consistent, comprehensive, and ongoing management of the chronic medical condition(s) listed above for the patient. Her updated medication list for this problem includes: Losartan 50 Mg Tablet (Losartan) Amlodipine 5 Mg Tablet (Amlodipine) ..... Take 1 tablet daily Metoprolol Succinate 50 Mg Tablet Extended Release 24 Hr (Metoprolol succinate) ..... Take 1 tablet daily Aspirin 81 Mg Tablet,delayed Release (dr/ec) (Aspirin) ..... 1 tablet once a day Caitlin Ortiz MD Cardiology [facility]: H er updated medication list for this problem includes: Simvastatin 20 Mg Tablet (Simvastatin) ..... Take 1 tablet daily Zetia 10 Mg Tablet (Ezetimibe) ..... Take 1 once a day Juan Kraft Cardiology: H er updated medication list for this problem includes: Losartan 50 Mg Tablet (Losartan) Amlodipine 5 Mg Tablet (Amlodipine) ..... Take 1 tablet daily Metoprolol Succinate 50 Mg Tablet Extended Release 24 Hr (Metoprolol succinate) ..... Take 1 tablet daily Aspirin 81 Mg Tablet,delayed Release (dr/ec) (Aspirin) ..... 1 tablet once a day [facility] Cardiology [facility] Cardiology: H er updated medication list for this problem includes: Levothyroxine 50 Mcg Tablet (Levothyroxine) ..... Take 1 every morning [facility] Cardiology: H er updated medication list for this problem includes: Losartan 50 Mg Tablet (Losartan) Amlodipine 5 Mg Tablet (Amlodipine) ..... Take 1 tablet daily Metoprolol Succinate 50 Mg Tablet Extended Release 24 Hr (Metoprolol succinate) ..... Take 1 tablet daily Aspirin 81 Mg Tablet,delayed Release (dr/ec) (Aspirin) ..... 1 [address] once a [address] [facility] Cardiology: H er updated medication list for this problem includes: Amlodipine 5 Mg Tablet (Amlodipine) ..... Take 1 tablet daily Metoprolol Succinate 50 Mg Tablet Extended Release 24 Hr (Metoprolol succinate) ..... Take 1 tablet daily Aspirin 81 Mg Tablet,delayed Release (dr/ec) (Aspirin) ..... 1 tablet once a day [facility] Cardiology: H er updated medication list for this problem includes: Losartan 50 Mg Tablet (Losartan) Amlodipine 5 Mg Tablet (Amlodipine) ..... Take 1 tablet daily Metoprolol Succinate 50 Mg Tablet Extended Release 24 Hr (Metoprolol succinate) ..... Take 1 tablet daily Aspirin 81 Mg Tablet,delayed Release (dr/ec) (Aspirin) ..... 1 [address] once a day [facility] Cardiology: H er updated medication list for this problem includes: Simvastatin 20 Mg Tablet (Simvastatin) ..... Take 1 tablet daily Zetia 10 Mg Tablet (Ezetimibe) ..... Take [address] [facility] Cardiology: Her updated medication list for this problem includes: Amlodipine 5 Mg Tablet (Amlodipine) ..... Take 1 tablet daily Metoprolol Succinate 50 Mg Tablet Extended Release 24 Hr (Metoprolol succinate) ..... Take 1 tablet daily Aspirin 81 Mg Tablet,delayed Release (dr/ec) (Aspirin) ..... [address] a [address] [facility] Cardiology: O rders: C omplete Echo (79609) [facility] Cardiology: B P today: 128/72 P rior BP: 120/61 (01/19/2023) Labs Reviewed: C reat: 1.11 (03/28/2020) C hol: 143 (03/28/2020) HDL: 50 (03/28/2020) LDL: 66 (03/28/2020) T (03/28/2020) The following medications were removed from the medication list: Lisinopril 20 Mg Tablet (Lisinopril) ..... Take 1 tablet twice a day Her updated medication list for this problem includes: Losartan 50 Mg Tablet (Losartan) Amlodipine 5 Mg Tablet (Amlodipine) ..... Take 1 tablet daily Metoprolol Succinate 50 Mg Tablet Extended Release 24 Hr (Metoprolol succinate) ..... Take 1 tablet daily Aspirin 81 Mg Tablet,delayed Release (dr/ec) (Aspirin) ..... 1 tablet once a day Juan Ahmedzai Cardiology Juan Ahmed[facility]ai Cardiology Juan Ahmedzai Cardiology Juan Ahmedzai Cardiology Juan Ahmedzai Cardiology Juan Ahmedzai Cardiology Juan Ahmedzai Cardiology Juan Ahmedzai Cardiology Juan Ahmedzai Cardiology Juan Ahmedz[facility] Juan [facility] Juan [facility] Juan [facility] Juan [facility] Juan [facility] Juan Ahmedz[facility] Juan [facility] Juan Ahmedzai Cardiology Juan Ahmedzai Cardiology Juan Ahmedzai Cardiology Juan Ahmedzai Cardiology Juan Ahmedzai Cardiology Juan Ahmedzai Cardiology Juan Ahmedzai Cardiology Juan Ahmedzai Cardiology Caitlin Ortiz MD Cardiology Caitlin Ortiz MD Cardiology Caitlin Ortiz MD Cardiology follow up Toniya Avel montoya MD Cardiology follow up Toniya Avel montoya MD Cardiology follow up Toniya Avel montoya MD Cardiology follow up Toniya Avel montoya MD Cardiology [facility] [place] [facility] Follow up Tonijoshua montoya MD Cardiology Follow up Tonijoshua mnotoya MD Cardiology Follow up Tonijoshua montoya MD Cardiology Follow up Tonmaribel montoya MD Telehealth Caitlin Ortiz MD Telehealth Caitlin Ortiz MD Cardiology [place] [facility] [facility] [place] [facility] [place] [facility] Caitlin Ortiz MD Cardiology Caitlin Ortiz MD Cardiology Caitlin Ortiz MD Cardiology Caitlin Ortiz MD Cardiology Caitlin Ortiz MD Cardiology follow up Caitlin montoya MD Cardiology follow up Tonmaribel montoya MD Cardiology follow up Toniya Avel montoya MD Cardiology follow up Toniya Avel montoya MD Cardiology follow up Caitlin montoya MD Cardiology follow up Caitlin montoya MD Cardiology follow up Caitlin montoya MD Cardiology follow up Caitlin montoya MD Cardiology follow up Caitlin montoya MD Cardiology follow up Caitlin montoya MD Cardiology:BP today: 149/69 P rior BP: 122/80 (10/04/2017) H er updated medication list for this problem includes: Aspirin Adult Low Dose 81 Mg Oral Tablet Delayed Release (Aspirin) ..... 1 tab daily Toprol Xl 50 Mg Oral Tablet Extended Release 24 Hour (Metoprolol succinate) ..... One tab daily Lisinopril 10 Mg Oral Tablet (Lisinopril) ..... One tab. daily Caitlin Ortiz MD Cardiology:She has a hx of breast cancer where she underwent a lumpectomy. Caitlin Ortiz MD Cardiology:Will get results from recent blood work from PCP Caitlin Ortiz MD Cardiology:She c/o s ob and fatigue. Associated with exertion, specifically when she walks up an incline. Will do an echo and a stress test to assess cardiac function. Caitlin Ortiz MD Cardiology follow up Caitlin montoya MD Cardiology follow up Caitlin montoya MD Cardiology follow up Caitlin montoya MD Cardiology follow up Caitlin montoya MD Cardiology Caitlin Ortiz MD Cardiology Caitlin Ortiz MD Cardiology Caitlin Ortiz MD Cardiology:Normally well controlled, patient has been dealing with high level of stress and recent illness. BP today: 146/80 P rior BP: 130/70 (01/21/2016) Caitlin Ortiz MD Cardiology Follow up Caitlin montoya MD Cardiology Follow up Caitlin logan MD Cardiology Follow up Caitlin montoya MD Cardiology Follow up Caitlin montoya MD Cardiology Caitlin Ortiz MD Cardiology Caitlin Ortiz MD Cardiology Caitlin Ortiz MD Cardiology Caitlin Ortiz MD Cardiology Caitlin Ortiz MD Cardiology Caitlin Ortiz MD Cardiology Caitlin Ortiz MD Cardiology Caitlin Ortiz MD Cardiology Caitlin Ortiz MD follow up: H er updated medication list for this problem includes: Levothyroxine Sodium 50 Mcg Oral Tabs (Levothyroxine sodium) ..... Take one pill in the am Caitlin Ortiz MD New Patient : H er updated medication list for this problem includes: Levothyroxine Sodium 50 Mcg Oral Tabs (Levothyroxine sodium) ..... Take one pill in the am Caitlin Ortiz MD New Patient : H er updated medication list for this problem includes: Lisinopril 20 Mg Oral Tabs (Lisinopril) ..... Take one pill in the am Felodipine Er 5 Mg Oral [id number] (Felodipine) ..... Take one pill at night Aspirin 81 Mg Oral Tabs (Aspirin) ..... Take one pill a day BP today: 130/88 Caitlin Ortiz MD Date Name Complete Echo Complete Echo Complete Echo Holter Monitor 48 hr Holter Monitor 48 hr Vitamin D, 25-Hydrox y COMPREHENSIVE METABO LIC PANEL, W/EGFR TSH, free T4, total T3 HEMOGLOBIN A1c CBC (H/H, RBC, INDIC ES, WBC, PLT) LIPID PANEL Carotid Duplex Bilat eral HISTORY OF PROCEDURES Procedure Date Procedure Name Provider Procedure Notes S tatus Complex e/m visit add on Caitlin Ortiz MD completed EKG Caitlin Ortiz MD completed EKG Caitlin Ortiz MD completed EKG Caitlin Ortiz MD completed Holter, 24 or 48 Caitlin Ortiz MD com pleted Holter, 24 or 48 Caitlin Ortiz MD com pleted Holter, 24 or 48 Caitlin Ortiz MD com pleted EKG Caitlin Ortiz MD completed EKG Caitlin Ortiz MD completed Regadenoson, 4 units Caitlin Ortiz MD completed Cardiolite, 2 units Caitlin Ortiz MD completed SPECT Images Letitia Hernandez MD compl eted Stress EKG Chris Cedeño MD completed EKG Chris Cedeño MD completed SNOMED-CT: 476291889 [id number] Current Medications Documented Chris Cedeño MD completed SNOMED-CT: 64585423 Physical Exam, Performed: Pulse Exam of Foot Caitlin Ortiz MD completed SNOMED-CT: 514967544 425825 Current Medications Documented Caitlin Ortiz MD completed EKG Caitlin Ortiz MD completed SNOMED-CT: 807257387 933373 Current Medications Documented Caitlin Ortiz MD completed SNOMED-CT: 20354699 Physical Exam, Performed: Pulse Exam of Foot Caitlin Ortiz MD completed SNOMED-CT: 984066850 187045 Current Medications Documented Caitlin Ortiz MD completed EKG Caitlin Ortiz MD completed
--- OUTSIDE RECORDS SUMMARY | 2024-05-12 12:24 | XMS_ITS | Encounter Summary ---
Author Organization [facility] Health Address [address] [place] [address] Care Team Providers Care Ribbon Tier Name Role Phone Ruddy Holliday DO Primary Care Provider [phone] Encounter Details Date Type Department Care Team (Late st Contact Info) Description 09/06/2023 Lab Requisition [facility] - DermPath Lab [address] [place] [phone] Trev Finnegan MD [address] [place] [address] Social History Tobacco Use Types Packs/Day Years Used Date Smoking Tobacco: Never Assessed Sex and Gender Information Value Date Recorded Sex Assigned at Not on file Gender Identity Not on file Sexual Orientation Not on file documented as of this encounter Plan of Treatment Not on file documented as of this encounter Procedures Procedure Name Priority Date/Time Associated Diagnosis Comments DERMATOPATHOLOGY Routine 09/01/2023 12:0 0 AM CDT documented in this encounter Results * DERMATOPATHOLOGY (09/01/2023 12:00 AM CDT) Case Report Dermatopathology Report Case: [id number] Authorizing Provider: Trev Finnegan MD Collected: 09/01/2023 12:00 AM Ordering Location: [facility] Physician [facility] - Received: 09/06/2023 11:04 AM DermPath Lab [...] characteristic determined by the Dermatopathology Laboratory at [facility], directed by Dr. Janae Albarran. These tests need not be, and therefore are not, approved by the [place] Food and Drug Administration. The tests are used for clinical purposes. Billing Codes Specimen Charges Stain Charges 77002 1 1:17 PM CDT DERMATOPATHOLOGY LABORATORY Embedded Images 1:17 PM CDT DERMATOPATHOLOGY LABORATORY Pathology/Cytolog y TISSUE SPECIMEN FROM SKIN / Unknown 09/01/2023 09/06/2023 11:04 AM CDT Trev Finnegan MD LAB - PATHOLOGY/CYTO LOGY ORDERABLES DERMATOPATHOLOGY LABORATORY [facility] - Department of Dermatology [address], [address] [phone] documented in this encounter Visit Diagnoses Not on filedocumented in this encounter Care Teams Ribbon Tier Relationship Specialty Start Date End Date Ruddy Holliday DO [address] [facility] [facility] [address] [address] PCP - General 10/07/17 documented as of this encounter
--- OUTSIDE RECORDS SUMMARY | 2024-05-12 12:24 | XMS_ITS | Encounter Summary ---
Author Organization [facility] Health Address [address] [place] [address] Care Team Providers Care Tools Administrator Name Role Phone Ruddy Holliday DO Primary Care Provider [phone] Encounter Details Date Type Department Care Team (Late st Contact Info) Description 02/14/2020 Lab Requisition [facility] DermPath Lab [address] [place] [phone] Trev Finnegan MD [address] [place] [address] Social History Tobacco Use Types [...] Priority Date/Time Associated Diagnosis Comments DERMATOPATHOLOGY Routine 02/13/2020 12:0 0 AM [employer] documented in this encounter Results * DERMATOPATHOLOGY (02/13/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 SKIN, left superior pretibia: DERMAL SCAR (L90.5) PRESENT AT MARGIN 0 3:06 PM [facility] DERMATOPATHOLOGY LABORATORY Clinical History R/O HAK, SCC, scar. 0 3:06 PM [facility] DERMATOPATHOLOGY LABORATORY Gross Description Specimen A: Received is one formalin filled container labeled with the patient's name and designated left superior pretibia. The specimen consists of a punch biopsy measuring [id number], bisected. Jar 0. 0 3:06 PM [facility] DERMATOPATHOLOGY LABORATORY Microscopic Description Specimen A. SKIN, left superior pretibia: There are fibroblasts and collagen bundles oriented parallel to the skin surface with elongated blood vessels, some of which are oriented perpendicular to the skin surface. This lesion is present at the margin of the specimen. 0 3:06 PM [facility] DERMATOPATHOLOGY LABORATORY Disclaimer An external and internal positive and negative controls are appropriate for the histochemical, immunohistochemical and immunofluorescence stain(s) in this case (if any), except where stated explicitly. The performance characteristics of the stain(s) cited in this report were developed and its performance characteristic determined by the Dermatopathology Laboratory at [facility], directed by Dr. Janae Albarran. These tests need not be, and therefore are not, approved by the [place] Food and Drug Administration. The tests are used for clinical purposes. Billing Codes Specimen Charges Stain Charges 39387 1 0 3:06 PM [facility] DERMATOPATHOLOGY LABORATORY Embedded Images 0 3:06 PM [facility] DERMATOPATHOLOGY LABORATORY Pathology/Cytolog y TISSUE SPECIMEN FROM SKIN / Unknown 02/13/2020 02/14/2020 12:26 PM [facility] Trev Finnegan MD LAB - PATHOLOGY/CYTO LOGY ORDERABLES DERMATOPATHOLOGY LABORATORY [facility] - Department of Dermatology [address], [address] [phone] documented in this encounter Visit Diagnoses Not on filedocumented in this encounter Care Teams Tools Administrator Relationship Specialty Start Date End Date Ruddy Holliday DO [address] [facility] [address] [place] [address] PCP - General 10/07/17 documented as of this encounter
--- OUTSIDE RECORDS SUMMARY | 2024-05-12 12:24 | XMS_ITS | Encounter Summary ---
Author Organization [facility] Health Address [address] [place] [address] Care Team Providers Care Marine Electrician Helper Name Role Phone Ruddy Holliday DO Primary Care Provider [phone] Encounter Details Date Type Department Care Team (Late st Contact Info) Description 10/07/2017 Lab Requisition [facility] Care DermPath Lab [address] [facility] [place] [phone] Trev Finnegan MD [address] [place] [address] Social History Tobacco Use Types [...] Priority Date/Time Associated Diagnosis Comments DERMATOPATHOLOGY Routine 10/06/2017 12:0 0 AM CDT documented in this encounter Results * DERMATOPATHOLOGY (10/06/2017 12:00 AM CDT) Case Report Dermatopathology Report Case: [id number] Authorizing Provider: Trev Finnegan MD Collected: 10/06/2017 12:00 AM Pathologist: Kayli Baldwin MD Received: 10/07/2017 11:37 AM Specimens: A) - Skin, left zygoma B) - Skin, left side nose 8 1:09 PM CDT DERMATOPATHOLOGY LABORATORY Final Diagnosis Specimen A. SKIN, left zygoma: CHRONIC PERIFOLLICULITIS (L73.8) AND DERMAL FIBROSIS (L90.5) ACTINIC KERATOSIS, FOCAL (L57.0) (see microscopic description and comment) Specimen B. SKIN, left side nose: BASAL CELL CARCINOMA, NODULAR TYPE (C44.311) 1:09 PM [facility] DERMATOPATHOLOGY LABORATORY Clinical History A: R/O SCC,BCC B: R/O BCC 1:09 PM T DERMATOPATHOLOGY LABORATORY Gross Description Specimen A: Received is one formalin filled container labeled with the patient's name and designated left zygoma. The specimen consists of a shave biopsy measuring 5x4x1 mm. Jar 0. Specimen B: Received is one formalin filled container labeled with the patient's name and designated left side nose. The specimen consists of a shave biopsy with ED to the base, measuring 6x6x2 mm. Jar 0. 1:09 PM [facility] DERMATOPATHOLOGY LABORATORY Microscopic Description Specimen A. SKIN, left zygoma: Focally, the lower half of the epidermis shows disorderly maturation of keratinocytes with nuclear pleomorphism. Sections show a perifollicular lymphohistiocytic infiltrate. There is focal dermal fibrosis. A small free hair shaft is seen with a few surrounding histiocytes. COMMENT: The presence of a free hair shaft and perifolliculitis may suggest a previously ruptured hair follicle. Specimen B. SKIN, left side nose: Within the dermis there are aggregates of basaloid cells with a high nuclear to cytoplasmic ratio and peripheral palisading. 1:09 PM [facility] DERMATOPATHOLOGY LABORATORY Disclaimer An external and internal positive and negative controls are appropriate for the histochemical, immunohistochemical and immunofluorescence stain(s) in this case (if any), except where stated explicitly. The performance characteristics of the stain(s) cited in this report were developed and its performance characteristic determined by the Dermatopathology Laboratory at [facility]. These tests need not be, and therefore are not, approved by the [place] Food and Drug Administration. The tests are used for clinical purposes. Billing Codes Specimen Charges Stain Charges 97954 33587 1 1 1:09 PM CDT DERMATOPATHOLOGY LABORATORY Embedded Images 1:09 PM T DERMATOPATHOLOGY LABORATORY Pathology/Cytology TISSUE SPECIMEN FROM SKIN / Unknown 10/06/2017 10/07/2017 11:37 AM CDT Miscellaneous samples (specimen) TISSUE SPECIMEN FROM SKIN / Unknown 10/06/2017 10/07/2017 11:37 AM CDT Trev Finnegan MD LAB - PATHOLOGY/CYTO LOGY ORDERABLES DERMATOPATHOLOGY LABORATORY [facility] - Department of Dermatology [address] [place] [address] 5th [address] Lab [address] [phone] documented in this encounter Visit Diagnoses Not on filedocumented in this encounter Care Teams Marine Electrician Helper Relationship Specialty Start Date End Date Ruddy Holliday DO [address] [facility] [address] [place] [address] PCP - General 10/07/17 documented as of this encounter
[2024-05-12 13:58] LABS: Alanine Aminotransferase 20 U/L (6-35); Albumin Level 4.5 g/dL (3.5-5.1); Alkaline Phosphatase 54 U/L (38-126); Anion Gap 10 mmol/L (4-12); Aspartate Amino Transferase 58 U/L (14-36); Bilirubin,Total 0.5 mg/dL (0.2-1.3); Blood Urea Nitrogen 23 mg/dL (7-17); Carbon Dioxide 28 mmol/L (22-30); Chloride 101 mmol/L (98-107); Estimated Glomerular Filt Rate 49; Glucose 101 mg/dL (65-110); Potassium 4.6 mmol/L (3.4-5.0); Sodium 139 mmol/L (137-145)
[2024-05-12 15:22] LABS: Hemoglobin A1C 5.7 % (<5.7)
[2024-05-12 15:35] LABS: Thyroid Stimulating Hormone Reflex 0.144 uIU/mL (0.465-4.68)
[2024-05-12 17:18] LABS: Free T4 Free Thyroxine Reflex 1.23 ng/dL (0.78-2.19)
[2024-05-12 18:15] LABS: Total Triiodothyronine (T3) 1.33 NG/ML (0.97-1.69)
== END 2024-05-12 11:34 | disposition home or self-care (01) ==
LOC: ANHGOSHLAB 11:34
PROVIDERS: PCP Family Medicine; Visit Provider Family Medicine
DX: E53.8 Deficiency of other specified B group vitamins (principal); I10 Essential (primary) hypertension; R73.9 Hyperglycemia, unspecified
CPT/HCPCS: 36415; 80053; 82607; 83036; 84439; 84443; 84480

== ENCOUNTER 2024-06-27 10:31 | Outpatient (CLI) | payer MEDICARE, SELFPAY ==
--- OUTSIDE RECORDS SUMMARY | 2024-06-27 12:07 | XMS_ITS | Clinical Summary ---
Author Organization [facility] Address [address] [facility] [place] [address] Care Team Providers Care Reel And Rewinder Operator Name Role Phone Ruddy Holliday Primary Care Provider Source Comments [facility],non-owned Affiliates and Associated Physician Practices is amultiple site organization consisting of ambulatory clinics and hospital sitesin [place], [place], [place] and [place]. This disclosure is being madepursuant to the Care Everywhere program and may not contain all information available regarding this patient. Last updated 17.[facility] Immunizations Immunization Administration Dates Next Due INFLUENZA VACCINE, HIGH-DOSE , QUADR. 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 Gender Identity Not on file Sexual Orientation [...] VACCINE ( - 2023-2 5 season) 2023 DEPRESSION SCREENING 03/08/2024 INFLUENZA VACCINE (Season Ended) 2024 11/25/19 16 HEPATITIS B VACCINE Aged Out No longe r eligible based on patient's age to complete this topic HIB VACCINE Aged Out No longer eligi ble based on patient's age to complete this topic HPV VACCINE Aged Out No longer eligi ble based on patient's age to complete this topic MENINGOCOCCAL (Group B) VACC INE SHARED DECISION-MAKING Aged Out No longer eligibl e based on patient's age to complete this topic MENINGOCOCCAL GROUPS A/C/Y/W VACCINE Aged Out No longer eligible b ased on patient's age to complete this topic Insurance MEDICARE [facility] Address: [facility] [address] [place] [address] Care Teams Reel And Rewinder Operator Relationship Specialty Start Date End Date Ruddy Holliday DO [address] [facility] [address] [place] [address] PCP - General 10/07/17
--- OUTSIDE RECORDS SUMMARY | 2024-06-27 12:07 | XMS_ITS | Continuity of Care Document ---
Author Organization [employer] [facility] Address [address] [place] [address] Dr Ed[address] [place] [phone] Phone Care Team Providers Care Director Print Name Role Phone Maranda Lainez Unavailable Unavailable Procedures Procedure Date Eye Exam & Treatment Refraction BF Polycarb Sphcyl Cammal To +/-4d .122d [facility] Post-op Follow-up Visit After Cataract Laser Surgery Post-op Follow-up Visit After Cataract Laser Surgery Eye Exam & Treatment Office/outpatient Visit, Est Eye Exam Established Pt BF Polycarb Sphcyl Cammal To +/-4d .122d Anti-reflective Coating [employer] Deluxe [facility] BF Polycarb Sphcyl Cammal To +/-4d .122d Anti-reflective Coating Polycarb Lens Per Lens Post-op Follow-up Visit Post-op Follow-up Visit Post-op Follow-up Visit Remove Cataract, Insert Lens Eye Exam & Treatment [employer] Purchases BF Polycarb Sphcyl Cammal To +/-4d .122d Anti-reflective Coating [employer] [facility] Office/outpatient Visit, Est Visual Functional Status Assessed Refraction Office/outpatient Visit, Est Visual Functional Status Assessed Eye Exam & Treatment Visual Functional Status Assessed Advance Directives Directive Yes / No Effective Date File Name No Information Encounters Encounter Description Practice Location Reason(s) For Visit Diagnoses Date Provider Providers Copied on Encounter [facility], [address] [place] [address] [address], [place], [place], [id number], tel:[phone] [facility] No Information 0 Fatou Vasquez [address] , [address], [place], [address], . tel:[phone] [facility], [address], [place], [place], [address], tel:[phone] [facility] No Information 9 [facility] . [address] [facility], [facility] [address], [place], [address], . tel:[phone] Referring Provider: Maranda Toussaint, [address], [place], [place], [facility]. tel:[phone] g Provider: Renee Monroe, [address] [place], [address]. tel:[phone] 2112 [facility], [address] [place] [address] [address], [place], [place], [address], [place] tel:[phone] [facility] No Information 9 Fatou Vasquez [address] , [address], [place], [address], [place]. tel:[phone] [facility], [address], [place], [place], [address], [place] tel:[phone] [facility] No Information 9 Fatou Vasquez [address] , [address], [place], [facility] [place], [place]. tel:[phone] [facility], [address] [place] [address] [address], [place], [place], [address], [place] tel:[phone] [facility] No Information Apr-1 0-200 9 Fatou Maranda. [address] , [address], [place], [place], [facility], [place]. tel:[phone] [facility], [address] [place] [address] [address], [place], [place], [address], [place] tel:[phone] [facility] No Information Mar-0 4-200 9 Fatou Cabreran. [address] , [address], [place], [facility], [place]. tel:[phone] [facility], [address] [place] [address] [address], [place], [place], [address], [place] tel:[phone] [facility] No Information Mar-0 3-200 9 Fatou Maranda. [address] , [address], [place], [facility], [place]. tel:[phone] Office/outpat ient Visit, Est [facility], [address] [place] [address] [address], [place], [place], [address], [place] tel:[phone] [facility] No Information Aug-2 6-200 8 Fatou Cabreran. [address] , [address], [place], [facility], [place]. tel:[phone] [facility], [address] [place] [address] [address], [place], [place], [address], [place] tel:[phone] [facility] No Information Nirmal-0 8-200 8 Fatou Cabreran. [address] , [address], [place], [facility], [place]. tel:[phone] [facility], [address] [place] [address] [address], [place], [place], [address], [place] tel:[phone] [facility] No Information July-2 8-200 8 [employer] . [address], [address], [place], [place], [address], [place]. tel:[phone] Consulting Provider: Jacque Peterson, [address] [place] [address], [address]. tel:[phone] [facility], [address] [place] [address] [address], [place], [place], [address], [place] tel:[phone] [facility] No Information July-1 2-200 8 [employer] . [address], [address], [place], [place], [address], [place]. tel:[phone] Consulting Provider: Jacque Peterson, [address] [place] [address], [address]. tel:[phone] [facility], [address] [place] [address] [address], [place], [place], [address], [place] tel:[phone] [facility] No Information July-0 7-200 8 [employer] . [address], [address], [place], [place], [address], [place]. tel:[phone] Referring Provider: Maranda Toussaint, [address], [place], [address]. tel:[phone] g Provider: Renee Monroe, [address] [place], [address]. tel:[phone] [facility], [address], [place], [place], [address], [place] tel:[phone] [facility] No Information Jun-2 9-200 8 Fatou Low. [address] , [address], [place], [address], [place]. tel:[phone] [facility], [address], [place], [place], [address], [place] tel:[phone] [facility] No Information Apr-0 8-200 8 Fatou Low. [address], [place], [facility], [place]. tel:[phone] [facility], [address], [place], [place], [address], [place] tel:[phone] [facility] No Information Mar-2 7-200 8 Sosa OD Gio. [address], [place], [facility], [place]. tel:[phone] [facility], [address] [place] [address] [address], [place], [place], [address], [place] tel:[phone] [facility] No Information May-2 6-200 8 Fatou Low. [address] , [address], [place], [facility], [place]. tel:[phone] [facility], [address], [place], [place], [address], [place] tel:[phone] [facility] No Information Feb-2 6-200 8 Fatou Low. [address] , [address], [place], [facility], [place]. tel:[phone] Referring Provider: Maranda Toussaint, [address], [place], [facility]. tel:[phone] [facility], [address] [place] [address] [address], [place], [place], [address], [place] tel:[phone] [facility] No Information Aug-1 0-200 7 [employer] . [address], [address], [place], [place], [address], [place]. tel:[phone] Referring Provider: Maranda Toussaint, [address], [place], [address]. tel:[phone] saavedra Provider: Renee Monroe, [address] [facility], [place], [address]. tel:[phone] Office/outpat ient Visit, [facility], [address], [place], [place], [address], [place] tel:[phone] [facility] No Information 0-200 7 Lainez Maranda. [address] , [address], [place], [address], [place]. tel:[phone] Office/outpat ient Visit, [facility], [address], [place], [place], [address], [place] tel:[phone] [facility] No Information 6200 7 Estefany Mcarthur. [address] [place], [place], [facility], [place]. tel:[phone] [facility], [address], [place], [place], [address], [place] tel:[phone] [facility] No Information 4-200 7 Lainez Maranda. [address] , [address], [place], [facility], . tel:[phone] Family History Family Member Type Diagnosis Age At Onset No Information Payers Payer name Insurance type Covered libertarian ID Authoriza tion(s) [place] [id number] Social History Type Description Quantity Date Captured [...]
--- OUTSIDE RECORDS SUMMARY | 2024-06-27 12:07 | XMS_ITS ---
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 Slightest signal of short term memory recall but not of consequence in daily activities. Bladder issues: disrupts sleep. Consider Myrbetriq instead of older bladder meds that have MEAL COOKER side effects. Murmur 07/08/2021 Dizziness and giddiness 09/27/2018 Breast mass 04/18/2018 History of breast cancer 02/21/2018 Malignant neoplasm of upper- outer quadrant of left breast in female, estrogen receptor positive 08/23/2017 Cancer Staging:Pathologic:Stage Unknown(pT1b(2), pNX, cM0, G2, ER: Positive, TN: Positive, HER2: Negative) - Signed by Mica Mcarthur MD PhD on 09/08/2017 Overview (08/23/2017): ER/TN+ Basal cell carcinoma of skin of other parts of f rehana 04/20/2017 Pack's esophagus 08/30/2015 Chest pain 05/08/2014 Essential hypertension 05/08/2014 Hypothyroidism 05/08/2014 Mixed hypercholesterolemia and hypertriglyceride mikki 05/08/2014 Shortness of breath 05/08/2014 Gastroesophageal reflux disease with esophagitis 02/23/2014 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 Past Treatment and Therapy Plans No past plan information found. Lifetime Dose Tracking * Chemical Lifetime Dose Automatic Entry Manual Entr y DLP 419 mGycm 419 mGycm 0 mGycm
--- OUTSIDE RECORDS SUMMARY | 2024-06-27 12:07 | XMS_ITS | Encounter Summary ---
Author Organization [facility] Address [address] [facility] [place] [address] Care Team Providers Care Telemarketer Name Role Phone Ruddy Holliday DO Primary Care Provider [phone] Encounter Details Date Type Department Care Team (Late st Contact Info) Description 09/06/2023 Lab Requisition [facility] - DermPath Lab [address] [place] [id number] Trev Finnegan MD [address] [place] [address] Social History Tobacco Use Types Packs/Day Years Used Date Smoking Tobacco: Never Assessed Comments Unknown Sex and Gender Information Value Date Recorded Sex Assigned at Not on file Legal Sex Female 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 Gender Identity Not on file Sexual Orientation Not on file documented as of this encounter Plan of Treatment Not on file documented as of this encounter Procedures Procedure Name Priority Date/Time Associated Diagnosis Comments DERMATOPATHOLOGY Routine 09/01/2023 12:0 0 AM CDT documented in this encounter Results * DERMATOPATHOLOGY (09/01/2023 12:00 AM CDT) Case Report Dermatopathology Report Case: [id number] Authorizing Provider: Trev Finnegan MD Collected: 09/01/2023 12:00 AM Ordering Location: [facility] Physician [facility] - Received: 09/06/2023 11:04 AM DermPath Lab Pathologist: Mandy Macias MD Specimen: Skin, left side superiorly on nose 1:17 PM CDT DERMATOPATHOLOGY LABORATORY Final Diagnosis Specimen A. SKIN, left side superiorly on nose: BASAL CELL CARCINOMA, NODULAR TYPE (C44.311) 4 1:17 PM CDT DERMATOPATHOLOGY LABORATORY Clinical History R/O BCC 4 1:17 PM CDT DERMATOPATHOLOGY LABORATORY Gross Description [...] characteristic determined by the Dermatopathology Laboratory at [facility], directed by Dr. Janae Albarran. These tests need not be, and therefore are not, approved by the [place] Food and Drug Administration. The tests are used for clinical purposes. Billing Codes Specimen Charges Stain Charges 14002 1 1:17 PM CDT DERMATOPATHOLOGY LABORATORY Embedded Images 1:17 PM CDT DERMATOPATHOLOGY LABORATORY Pathology/Cytolog y TISSUE SPECIMEN FROM SKIN / Unknown 09/01/2023 09/06/2023 11:04 AM CDT us Trev Finnegan MD LAB - PATHOLOGY/CYTOLOGY ORD ERABLES Final Result DERMATOPATHOLOGY LABORATORY [facility] - Department of Dermatology [address] [place] [address], [facility] [phone] documented in this encounter Visit Diagnoses Not on filedocumented in this encounter Care Teams Telemarketer Relationship Specialty Start Date End Date Ruddy Holliday DO [address] [facility] [address] [facility] [address] [place] [address] PCP - General 10/07/17 documented as of this encounter
--- OUTSIDE RECORDS SUMMARY | 2024-06-27 12:07 | XMS_ITS | Encounter Summary ---
Author Organization [facility] Address [address] [facility] [place] [address] Care Team Providers Care Garland Machine Operator Name Role Phone Ruddy Holliday DO Primary Care Provider [phone] Encounter Details Date Type Department Care Team (Late st Contact Info) Description 11/18/2017 Lab Requisition [facility] Care DermPath Lab [address] [facility] [facility] [place] [phone] Trev Finnegan MD [address] [place] [address] Social History Tobacco Use Types Packs/Day Years Used Date Smoking Tobacco: Never Assessed Comments Unknown Sex and Gender Information Value Date Recorded Sex Assigned at Not on file 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 Gender Identity Not on file Sexual Orientation Not on file documented as of this encounter Plan of Treatment Not on file documented as of this encounter Procedures Procedure Name Priority Date/Time Associated Diagnosis Comments DERMATOPATHOLOGY Routine 11/17/2017 12:0 0 AM CDT documented in this encounter Results * DERMATOPATHOLOGY (11/17/2017 12:00 AM CDT) Case Report Dermatopathology Report Case: [id number] Authorizing Provider: Trev Finnegan MD Collected: 11/17/2017 12:00 AM Pathologist: Kayli Baldwin MD Received: 11/18/2017 01:06 PM Specimen: Skin, left side nose 8 5:39 PM CDT DERMATOPATHOLOGY LABORATORY Final Diagnosis Specimen A. SKIN, left side nose: DERMAL SCAR; PRESENT AT MARGIN (L90.5) RESIDUAL BASAL CELL CARCINOMA NOT IDENTIFIED (see microscopic description) 5:39 PM CDT DERMATOPATHOLOGY LABORATORY Clinical History R/O bx proven BCC, nodular. [id number]. Check margins. 5:39 PM CDT DERMATOPATHOLOGY LABORATORY Gross Description Specimen A: Received is one formalin filled container labeled with the patient's name and designated left side nose. The specimen consists of a curettage and desiccation biopsy measuring [id number]. The margin is inked green. Jar 0. [...] by the Dermatopathology Laboratory at [facility]. These tests need not be, and therefore are not, approved by the [place] Food and Drug Administration. The tests are used for clinical purposes. Billing Codes Specimen Charges Stain Charges 82059 1 5:39 PM CDT DERMATOPATHOLOGY LABORATORY Embedded Images 5:39 PM CDT DERMATOPATHOLOGY LABORATORY Pathology/Cytolog y TISSUE SPECIMEN FROM SKIN / Unknown 11/17/2017 11/18/2017 1:06 PM CDT Trev Finnegan MD LAB - PATHOLOGY/CYTOLOGY ORD ERABLES Final Result DERMATOPATHOLOGY LABORATORY [facility] - Department of Dermatology [address] [place] [address], [address]th [place] [address], [facility] [phone] documented in this encounter Visit Diagnoses Not on filedocumented in this encounter Care Teams Garland Machine Operator Relationship Specialty Start Date End Date Ruddy Holliday DO [address] [facility] [address] [address] PCP - General 10/07/17 documented as of this encounter
--- OUTSIDE RECORDS SUMMARY | 2024-06-27 12:07 | XMS_ITS | CONTINUITY OF CARE DOCUMENT ---
Author Name cee, cee Address Unknown Organization [facility] Address [address] [place] [address] Phone [phone] Care Team Providers Care Tower Climber Name Role Phone Angel LUKE, Caitlin Unavailable [phone] Douglas Hatfield MD Unavailable Douglas Hatfield MD Unavailable PROBLEMS Condition Status Date Provider Notes Murmur active Meek Bundy Shortness of breath active Caitlin Ortiz MD Chest pain nl nuclear stress test 2015 active Caitlin Ortiz MD HTN essential--echo ef nl, 01/2024 active R maycol Kraft GERD active Caitlin Ortiz MD Hypothyroidism active Caitlin Ortiz MD Dizziness <50% b/l stenosis carotid mklaxzq65/18 active Caitlin Ortiz MD Aortic stenosis, mild active Juan Kraft Breast cancer- 02/2017 diagn osis, 2 malignant cysts, no chemo/radiation just lumpectomy active Caitlin Ortiz MD Hypercholesterolemia, mixed active Lory villalobos ENCOUNTERS Date Type Provider Location Encounter Diag nosis - In-person encounter Office Visit Caitlin Ortiz MD [facility] HTN essential--echo ef nl, ortic stenosis, mild - In-person encounter Office Visit Caitlin Ortiz MD [facility] HTN essential--echo ef nl, 01/2024 - In-person encounter Office Visit Caitlin Ortiz MD [facility] Aortic stenosis, mild - In-person encounter Office Visit Caitlin Ortiz MD [facility] - In-person encounter Office Visit Caitlin Ortiz MD [facility] - In-person encounter Office Visit Caitlin Ortiz MD [facility] HTN essential--echo ef nl, 01/2024 - In-person encounter Office Visit Caitlin Ortiz MD [facility] - In-person encounter Office Visit Caitlin Ortiz MD [facility] Chest pain nl nuclea r stress test 2014 - In-person encounter Office Visit Caitlin Ortiz MD [facility] - In-person encounter Office Visit Caitlin Ortiz MD [facility] - In-person encounter Office Visit Caitlin Ortiz MD [facility] - In-person encounter Office Visit Caitlin Ortiz MD [facility] - In-person encounter Office Visit Caitlin Ortiz MD [facility] - In-person encounter Office Visit Caitlin Ortiz MD [facility] - In-person encounter Office Visit Caitlin Ortiz MD [facility] Dizziness <50% b/l stenosis carotid qmmxlit05/18 - In-person encounter Office Visit Caitlin Ortiz MD [facility] - In-person encounter Office Visit Caitlin Ortiz MD [facility] Breast cancer- 02/2017 diagnosis, 2 malignant cysts, no chemo/radiation just lumpectomy - In-person encounter Office Visit Caitlin Ortiz MD [facility] Breast cancer- 02/2017 diagnosis, 2 malignant cysts, no chemo/radiation just lumpectomy - In-person encounter Office Visit Caitlin Ortiz MD [facility] - In-person encounter Office Visit Caitlin Ortiz MD [facility] - In-person encounter Office Visit Caitlin Ortiz MD [facility] - In-person encounter Office Visit Caitlin Ortiz MD [facility] - In-person encounter Office Visit Caitlin Ortiz MD [facility] - In-person encounter Office Visit Caitlin Ortiz MD [facility] Shortness of breathChest pain nl nuclear stress test 2014HTN essential--echo ef nl, 01/2024GERDHypercholestero lemia, mixedHypothyroidism VITAL SIGNS Date Observation Value Provider Body Mass Index (Ratio) 24.37 kg/m2 Cecil Ortiz MD blood pressure, diastolic 69 mm[Hg] Quan calero [facility] blood pressure, systolic 140 mm[Hg] Tasia angelica [facility] oxygen saturation, oximetry 98 % [facility] 74 /[facility] weight E&M 142 [lb_av] Miesha [facility] height E&M 64 [in_i] [facility] Body Mass Index (Ratio) 24.41 kg/m2 Cecil Ortiz MD blood pressure, diastolic 72 mm[Hg] Nori nkLogzay blood pressure, systolic 128 mm[Hg] Deb Romanogzay weight E&M 142.2 [lb_av] Kayy Graff blood pressure, cuff size regular Suresh Graff blood pressure, diastolic 72 mm[Hg] Suresh Graff blood pressure, systolic 128 mm[Hg] Tab maricruza Simpson oxygen saturation, oximetry 97 % Kayy Simpson respiratory rate E&M 12 /min Kayy Simpson pulse rate 93 /min Kayy Simpson height E&M 64 [in_i] [facility] Body Mass Index (Ratio) 24.03 kg/m2 Cecil Ortiz MD blood pressure, cuff size regular [facility] blood pressure, diastolic 61 mm[Hg] [facility] blood pressure, systolic 120 mm[Hg] [facility] oxygen saturation, oximetry 97 % [facility] respiratory rate E&M 16 /min Claudette Vincenzo ille pulse rate 75 /min [facility] height E&M 64 [in_i] [facility] weight E&M 140 [lb_av] [facility] Body Mass Index (Ratio) 23.69 kg/m2 [...] kirsten Eugene blood pressure, systolic 165 mm[Hg] [facility] oxygen saturation, oximetry 97 % Jad [...] blood pressure, diastolic 80 mm[Hg] Benji ismichelle [place] blood pressure, systolic 152 mm[Hg] Syl Kincaidby height E&M 64 [in_i] Macey [place] height in centimeters E&M 162.56 cm Kr isty [place] pulse rate, sitting, right 71 /min K errhaley Alicianegera orthostatic blood pr essure, sitting, right arm, diastolic 110 Lory Sergio orthostatic blood pr essure, sitting, right arm, systolic 180 Lory Sergio height E&M 64 [in_i] Lory Obdulia donaldsoner height in centimeters E&M 162.56 cm Ke maureen Sergio Body Mass Index (Ratio) 24.71 kg/m2 Cecil Ortiz MD blood pressure, resting Yes Brit josfea Block pulse rate 83 /min Albertina Block [...] sha Vicente oxygen saturation, oximetry 98 % [facility] pulse rate 79 /min [facility] Vicente weight E&M 141 [lb_av] Tons Vicente height E&M 64 [in_i] [facility] Vicente Body Mass Index (Ratio) 25.06 kg/m2 Cecil Ortiz MD blood pressure, cuff size regular Cy gaby Jorgensen blood pressure, diastolic 60 mm[Hg] Cy gaby Jorgensen blood pressure, systolic 148 mm[Hg] Gian alejandra Jorgensen oxygen saturation, oximetry 98 % [...] Kerri V oss pulse rate 86 /min Ekrri Sravan weight E&M 142 [lb_av] Kerri Sravan height E&M 64 [in_i] Kerri Sravan Body Mass Index (Ratio) 24.06 kg/m2 Cecil Ortiz MD blood pressure, diastolic 80 mm[Hg] [facility] blood pressure, systolic 146 mm[Hg] Kil jennifer Parra oxygen saturation, oximetry 97 % Gentry Parra respiratory rate E&M 16 /min [place] [facility] pulse rate 82 /min [place] [facility] weight E&M 140.2 [lb_av] [place] [facility] height E&M 64 [in_i] Gentry Parra [...] enson Body Mass Index (Ratio) 25.74 kg/m2 [facility] Henson blood pressure, diastolic 73 mm[Hg] [...] lder oxygen saturation, oximetry 96 % Lory Maldonadomirtha respiratory rate E&M 16 /min Lory gustafsonmirtha [...] High 1 cholesterol, serum 143 mg/dL [facility] [phone]/01/2 1 platelet count 335 X10E3/UL [facility] [phone]/01/2 1 red blood cell distribution width 12.9 [...] 3.5-5.2 1 sodium, serum 141 mmol/L [facility] [phone]/01/2 1 urea nitrogen/creatinine ratio, serum 14 [employer] [...] Juan sugarcheko smoking status [facility]oker [facility] social [facility] E&M Patient has n ever smoked. Smoking History: Giovanny gardner has never smoked. Juan Kraft smoking status Never smoker Claudette Graff social history reviewed E&M revi ewed - no changes required [facility] social history E&M Patient has n ever [...] % Grayson Hopperaustin exercise type walking Grayson [facility] physical exercise, f requency, days per week daily Grayson Hopper smoking status Never smoker Gr[facility] social history reviewed E&M revi ewed - no changes required Gr[facility] social history E&M Patient has n ever smoked. Smoking History: P kendra has never smoked. Caitlin Ortiz MD social history reviewed E&M revi ewed - no changes required Caitlin Ortiz MD seatbelt usage 100 % [facility] exercise type walking [facility] physical exercise, f requency, days per week daily [facility] smoking status Never smoker [facility] social history reviewed E&M revi ewed [...] has n ever smoked. Smoking History: P kednra has never smoked. Caitlin Ortiz MD social [...] Payer name Policy type / Coverage type [place] red constitution party ID [facility] [id number] [place] Medicare [id number] ADVANCE DIRECTIVES Name Date DISCUSSED - NO DECISION MADE TREATMENT PLAN Date Name Performer [id number],SJuan i [id number],SJuan i [id number],SJuan i [id number],SJuan i [id number],SJuan i [id number],S, Juan Ahmedza i [id number],S, Juan Ahmedza i [id number],S, Juan Ahmedza i [id number],S, Juan Ahmedza i [id number],S, Juan Ahmedza i [id number],S, Juan Ahmedza i [id number],S, Juan Ahmedza i [id number],S, Juan Ahmedza i [id number],S, Juan medza i [id number],S, Juan medza i [id number],B, Juan medza i [id number],S, Juan Ahmedza i [id number],S, Juan Ahmedza i [id number],S, Juan Ahmedza i [id number],S, Juan Ahmedza i [id number],B, Juan medza i [id number],S, Juan Ahmedza i [id number],B, Juan Ahmedza i [id number],S, Juan Ahmedza i [id number],S, Juan Ahmedza i [id number],B, Juan Ahmedza i [id number],S, Juan Ahmedza i [id number],S, Juan Ahmedza i [id number],B, Juan Schumacher i [id number],W, Juan Schumacher i [id number],B, Juan Schumacher i [id number],B, Caitlin Ortiz MD [id number],B, Caitlin Ortiz MD [id number],S, Caitlin Ortiz MD [id number],B, Caitlin Ortiz MD Cardiology:This visi t has been a [...] (Aspirin) ..... 1 tablet once a day [facility] Cardiology: H er updated medication list for this problem includes: Amlodipine 5 Mg Tablet (Amlodipine) ..... Take 1 tablet daily Metoprolol Succinate 50 Mg Tablet Extended Release 24 Hr (Metoprolol succinate) ..... Take 1 tablet daily Aspirin 81 Mg Tablet,delayed Release (dr/ec) (Aspirin) ..... 1 tablet once a day [facility] Cardiology: H er updated medication list for this problem includes: Losartan 50 Mg Tablet (Losartan) Amlodipine 5 Mg Tablet (Amlodipine) ..... Take 1 tablet daily Metoprolol Succinate 50 Mg Tablet Extended Release 24 Hr (Metoprolol succinate) ..... Take 1 tablet daily Aspirin 81 Mg Tablet,delayed Release (dr/ec) (Aspirin) ..... 1 tablet once a day [facility] Cardiology: H er updated medication list for this problem includes: Simvastatin 20 Mg Tablet (Simvastatin) ..... Take 1 tablet daily Zetia 10 Mg Tablet (Ezetimibe) ..... Take 1 once a day [facility] Cardiology [facility] Cardiology: Her updated medication list for this problem includes: Amlodipine 5 Mg Tablet (Amlodipine) ..... Take 1 tablet daily Metoprolol Succinate 50 Mg Tablet Extended Release 24 Hr (Metoprolol succinate) ..... Take 1 tablet daily Aspirin 81 Mg Tablet,delayed Release (dr/ec) (Aspirin) ..... 1 tablet once a day [facility] Cardiology: O rders: C omplete Echo (95286) [facility] Cardiology: B P today: 128/72 P rior [...] Tonijoshua montoya MD Cardiology Follow up Tonijoshua montoya MD Cardiology Follow up Tonijoshua montoya MD [...] the am Felodipine Er 5 Mg Oral [id number]-[id number] (Felodipine) ..... Take one pill at night [...] completed EKG Chris Cedeño MD completed SNOMED-CT: 149188736 115900 Current Medications Documented Chris Cedeño MD completed SNOMED-CT: 63203798 Physical Exam, Performed: Pulse Exam of Foot Caitlin Ortiz MD completed SNOMED-CT: 032410333 249556 Current Medications Documented Caitlin Ortiz MD completed EKG Caitlin Ortiz MD completed SNOMED-CT: 078233492 452448 Current Medications Documented Caitlin Ortiz MD completed SNOMED-CT: 83086885 Physical Exam, Performed: Pulse Exam of Foot Caitlin Ortiz MD completed SNOMED-CT: 358658878 942141 Current Medications Documented Caitlin Ortiz MD completed EKG Caitlin Ortiz MD completed
--- OUTSIDE RECORDS SUMMARY | 2024-06-27 12:07 | XMS_ITS | Encounter Summary ---
Author Organization [facility] Address [address] [place] [address] Care Team Providers Care Military Pay Technician Name Role Phone Ruddy Holliday DO Primary Care Provider [phone] Encounter Details Date Type Department Care Team (Late st Contact Info) Description 10/07/2017 Lab Requisition [facility] Care DermPath Lab [address] [facility], [facility] [place] [address] Trev Finnegan MD [address] [place] [address] Social History Tobacco Use Types Packs/Day Years Used Date Smoking Tobacco: Never Assessed Comments Unknown Sex and Gender Information Value Date Recorded Sex Assigned at Not on file 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 Gender Identity Not on file Sexual Orientation Not on file documented as of this encounter Plan of Treatment Not on file documented as of this encounter Procedures Procedure Name Priority Date/Time Associated Diagnosis Comments DERMATOPATHOLOGY Routine 10/06/2017 12:0 0 AM CDT documented in this encounter Results * DERMATOPATHOLOGY (10/06/2017 12:00 AM CDT) Case Report Dermatopathology Report Case: [id number] Authorizing Provider: Trev Finnegan MD Collected: 10/06/2017 [...] CELL CARCINOMA, NODULAR TYPE (C44.311) 1:09 PM [facility] DERMATOPATHOLOGY LABORATORY Clinical History A: R/O SCC,BCC [...] measuring 6x6x2 mm. Jar 0. 1:09 PM [facility] DERMATOPATHOLOGY LABORATORY Microscopic Description Specimen A. SKIN, [...] cytoplasmic ratio and peripheral palisading. 1:09 PM [facility] DERMATOPATHOLOGY LABORATORY Disclaimer An external and internal positive and negative controls are appropriate for the histochemical, immunohistochemical and immunofluorescence stain(s) in this case (if any), except where stated explicitly. The performance characteristics of the stain(s) cited in this report were developed and its performance characteristic determined by the Dermatopathology Laboratory at [facility]. These tests need not be, and therefore are not, approved by the [place] Food and Drug Administration. The tests are used for clinical purposes. Billing Codes Specimen Charges Stain Charges 59743 83949 1 1 1:09 PM T DERMATOPATHOLOGY LABORATORY Embedded Images 08/03/201 8 1:09 PM CDT DERMATOPATHOLOGY LABORATORY Pathology/Cytology TISSUE SPECIMEN FROM SKIN / Unknown 10/06/2017 10/07/2017 11:37 AM CDT Miscellaneous samples (specimen) TISSUE SPECIMEN FROM SKIN / Unknown 10/06/2017 10/07/2017 11:37 AM CDT us Trev Finnegan MD LAB - PATHOLOGY/CYTOLOGY ORD ERABLES Final Result DERMATOPATHOLOGY LABORATORY [facility] - Department of Dermatology [address] [facility], 5th Floor Lab [address] [phone] documented in this encounter Visit Diagnoses Not on filedocumented in this encounter Care Teams Military Pay Technician Relationship Specialty Start Date End Date Ruddy Holliday DO [address] [facility] [facility] [address] [place] [address] PCP - General 10/07/17 documented as of this encounter
--- OUTSIDE RECORDS SUMMARY | 2024-06-27 12:07 | XMS_ITS | Encounter Summary ---
Author Organization [facility] Address [address] [place] [address] Phone Care Team Providers Care Production Stage Manager Name Role Phone Yasir Lopez MD Primary Care Provider [phone] Aft, Kalee Fernandez MD PhD Unavailable [phone] Mica Mcarthur MD PhD Unavailable [phone] Aft, Kalee Fernandez MD PhD Unavailable [phone] Heather Blanc MD Primary Care Provider Douglas Hatfield MD Primary Care Provider Encounter Details Date Type Department Care Team (Late st Contact Info) Description 03/02/2018 Telephone 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 Gender Identity Not on file Sexual Orientation Not on file documented as of this encounter Plan of Treatment Not on file documented as of this encounter Visit Diagnoses Not on filedocumented in this encounter Care Teams Production Stage Manager Relationship Specialty Start Date End Date Yasir Lopez MD [address] [place] [address] PCP - General 05/20/16 11/02/18 Heather Blanc MD [address] [place] [id number] [place] [address] PCP - General Family Medicine 11/03/18 05/05/20 Douglas Hatfield MD [address] [place] [id number] [place] [address] PCP - General Family Practice 05/06/20 Jose AtKalee MD PhD [address] [facility] [place] [address] Surgeon Surgical Oncology 08/27/17 Mica Mcarthur MD PhD [address] [place] [id number] [place] [address] Radiation Oncologist Radiation Oncology 09/02/17 Kalee Munguia MD PhD [address] [place] [address] Referring Physician Surgical Oncology 09/02/17 documented as of this encounter
--- OUTSIDE RECORDS SUMMARY | 2024-06-27 12:07 | XMS_ITS | Encounter Summary ---
Author Organization [facility] Health Address [address] [place] [address] Care Team Providers Care Manager Bar Name Role Phone Ruddy Holliday DO Primary Care Provider [phone] Encounter Details Date Type Department Care Team (Late st Contact Info) Description 06/19/2020 Lab Requisition [facility] DermPath Lab [address] [place] [phone] Trev Finnegan MD [address] [place] [address] Social History Tobacco Use Types Packs/Day Years Used Date Smoking Tobacco: Never Assessed Comments Unknown Sex and Gender Information Value Date Recorded Sex Assigned at Not on file 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 Gender Identity Not on file Sexual Orientation Not on file documented as of this encounter Plan of Treatment Not on file documented as of this encounter Procedures Procedure Name Priority Date/Time Associated Diagnosis Comments DERMATOPATHOLOGY Routine 06/18/2020 12:0 0 AM CDT documented in this encounter Results * DERMATOPATHOLOGY (06/18/2020 12:00 AM CDT) Case Report Dermatopathology Report Case: [id number] Authorizing Provider: Trev Finnegan MD Collected: 06/18/2020 12:00 AM Ordering Location: [facility] DermPath Lab Received: 06/19/2020 01:14 PM Pathologist: [...] specimen consists of a shave biopsy measuring [id number]. Jar 0. 11:55 AM CDT DERMATOPATHOLOGY LABORATORY [...] characteristic determined by the Dermatopathology Laboratory at [facility], directed by Dr. Janae Albarran. These tests need not be, and therefore are not, approved by the [place] Food and Drug Administration. The tests are used for clinical purposes. Billing Codes Specimen Charges Stain Charges 95334 1 11:55 AM CDT DERMATOPATHOLOGY LABORATORY Embedded Images 11:55 AM CDT DERMATOPATHOLOGY LABORATORY Pathology/Cytolog y TISSUE SPECIMEN FROM SKIN / Unknown 06/18/2020 06/19/2020 1:14 PM CDT Trev Finnegan MD LAB - PATHOLOGY/CYTOLOGY ORD ERABLES Edited Result - Final DERMATOPATHOLOGY LABORATORY [facility] - Department of Dermatology [facility] Specialized Medicine [address] [place] [address], [address] [phone] documented in this encounter Visit Diagnoses Not on filedocumented in this encounter Care Teams Manager Bar Relationship Specialty Start Date End Date Ruddy Holliday DO [address] [facility] [address] [place] [address] PCP - General 10/07/17 documented as of this encounter
--- OUTSIDE RECORDS SUMMARY | 2024-06-27 12:07 | XMS_ITS | Encounter Summary ---
Author Organization [facility] Address [address] [place] [address] Phone Care Team Providers Care Outsole Handler Name Role Phone Aft, Kalee Fernandez MD PhD Unavailable [phone] Mica Mcarthur MD PhD Unavailable [phone] Aft, Kalee Fernandez MD PhD Unavailable [phone] Heather Blanc MD Primary Care Provider Douglas Hatfield MD Primary Care Provider Encounter Details Date Type Department Care Team (Latest Contact Info) Description 11/04/2018 Orders Only [facility] Scanning, Provider Social History Tobacco Use Types Packs/Day Years Used Date Smoking Tobacco: Never Smokeless Tobacco: Never Alcohol Use Standard Drinks/Week Comments Yes 0 (1 standard drink = 0.6 oz pur e alcohol) socially Exercise Vital Sign Answer Date Recorde d Days of Exercise per Week 0 days 2018 Minutes of Exercise per Session 0 min 11/03/2018 Comments No Sex and Gender Information Value Date Recorded Sex Assigned at Not on file 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 Gender Identity Not on file Sexual Orientation Not on file documented as of this encounter Plan of Treatment Not on file documented as of this encounter Procedures Procedure Name Priority Date/Time Associated Diagnosis Comments SCAN - RADIOLOGY/IMAGING 11/04/2018 documented in this encounter Results * SCAN - RADIOLOGY/IMAGING (11/04/2018) Anatomical Region Laterality Modality Other Provider Scanning Final Result documented in this encounter Visit Diagnoses Not on filedocumented in this encounter Care Teams Outsole Handler Relationship Specialty Start Date End Date Heather Blanc MD [address] [place] [address] PCP - General Family Medicine 11/03/18 05/05/20 Douglas Hatfield MD [address] [facility] [address] [place] [address] PCP - General Family Practice 05/06/20 AftKalee MD PhD [address] [place] [address] Surgeon Surgical Oncology 08/27/17 Mica Mcarthur MD PhD [address] [facility] [address] [place] [address] Radiation Oncologist Radiation Oncology 09/02/17 Kalee Munguia MD PhD [address] [place] [address] Referring Physician Surgical Oncology 09/02/17 documented as of this encounter
--- OUTSIDE RECORDS SUMMARY | 2024-06-27 12:07 | XMS_ITS | Referral Summary ---
Author Organization [facility] Address [address] [facility] [place] [address] Care Team Providers Care Monitoring Coordinator Name Role Phone Aft, Kalee Fernandez MD PhD Unavailable [phone] Mica Mcarthur MD PhD Unavailable [phone] Aft, Kalee Fernandez MD PhD Unavailable [phone] Douglas Hatfield MD Primary Care Provider Encounters Date Type Department Care Team Description 06/02/2024 Telephone [facility] Oncology [address] [place] [phone] Julianne Brenner RN 06/01/2024 9:25 AM CDT - 06/01/2024 11:59 PM CDT Hospital Encounter [facility] Breast [facility] ([facility]) [address] [place] [address] Rosario Chen MD Malignant neoplasm of upper-outer quadrant of left breast in female, estrogen receptor positive (HCC) Discharge Disposition: Discharge to home or self care 06/01/2024 11:00 AM CDT Office Visit [facility] Oncology [facility] [address] [place] [phone] Rosario Chen MD Constipation, unspecified constipation type (Primary Dx); Malignant neoplasm of upper-outer quadrant of left breast in female, estrogen receptor positive (HCC) from Last 3 Months Allergies No known active allergies Medications levothyroxine (SYNTHROID, LEVOTHROID) 50 mcg tablet Take 1 tablet (50 mcg total) 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 Active omeprazole (PriLOSEC) 40 mg capsule Take 1 capsule (40 mg total) by mouth daily Active VENTOLIN HFA 90 mcg/actuation inhaler 9 Active ATROVENT HFA 17 mcg/actuation inhaler 9 Active TOPROL XL 50 mg 24 hr tablet 9 Active ADVAIR DISKUS 250-50 mcg/dose diskus inhaler 3 9 Active oxybutynin (DITROPAN) 5 mg tablet 0 Active Prolia 60 mg/mL syringe INJECT 60MG UNDER THE MUSCLE Q 6 MONTHS 0 Active Breo Ellipta 100-25 mcg/dose diskus inhaler INHALE 1 PUFF BY MOUTH DAILY 1 Active NIFEdipine CC 60 mg 24 hr tablet Take 60 mg by mouth daily 1 Active docusate sodium (Colace) 100 mg capsuleIndicati ons:constipatio n Take 1 capsule (100 mg total) by mouth 2 (two) times a day as needed for constipation 60 capsule 5 1 Active Additional Information Patient not taking.Reported on 06/01/2024 amLODIPine (NORVASC) 5 mg tablet Take by mouth 1 Active calcium carbonate-vitam in D3 1500 mg (600 mg elemental) -200 units per tablet daily 0 Active multivitamin capsule Take by mouth 0 Active clotrimazole (MYCELEX) 10 mg kd Take 10 mg by mouth 3 (three) times a day 2 Active loratadine (CLARITIN) 10 mg tablet Take 10 mg by mouth daily 2 Active benzonatate (TESSALON) 100 mg capsule TAKE 1 CAPSULE BY MOUTH THREE TIMES DAILY NEEDED FOR COUGH 2 Active valACYclovir (VALTREX) 1 gram tablet valacyclovir 1 gram tablet 0 Active fluticasone propionate (FLONASE) 50 mcg/actuation nasal spray SHAKE LIQUID AND USE 1 SPRAY IN EACH NOSTRIL DAILY 2 Active clobetasoL (TEMOVATE) 0.05 % ointmentIndicat ions:Lichen sclerosus Apply topically nightly 15 g 3 2 Active Additional Information Patient not taking.Reported on 06/01/2024 amLODIPine (NORVASC) 10 mg tablet 2 Active tolterodine LA (DETROL LA) 2 mg 24 hr capsule Take 2 mg by mouth daily 2 Active anastrozole (ARIMIDEX) 1 mg tablet TAKE 1 TABLET DAILY 90 tablet 3 3 Active donepeziL (ARICEPT) 5 mg tablet Take 1 tablet (5 mg total) by mouth nightly at bedtime 4 Active losartan (COZAAR) 50 mg tablet Take 1 tablet (50 mg total) by mouth daily 4 Active mupirocin (BACTROBAN) 2 % ointment APPLY TO AFFECTED BOPISY SITE ON LEFT JEWISH TWICE DAILY DIRECTED 5 Active Active Problems Problem Noted Date Diagnosed Date Bronchiectasis without complication 11/04/2022 Subjective memory complaints 04/27/2022 Assessment & Plan (04/27/2022 3:46 PM ASSEMBLER TRIM): Subjective memory complaints No concerns expressed by son. Slightest signal of short term memory recall but not of consequence in daily activities. Bladder issues: disrupts sleep. Consider Myrbetriq instead of older bladder meds that have SNOWBLOWER MECHANIC side effects. 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 Chest pain 05/08/2014 Essential hypertension 05/08/2014 Hypothyroidism 05/08/2014 Mixed hypercholesterolemia and hypertriglyceride mikki 05/08/2014 Shortness of breath 05/08/2014 Gastroesophageal reflux disease with esophagitis 02/23/2014 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 Immunizations Immunization Administration Dates Next Due Influenza, Quadrivalent, Hig h Dose, Preservative Free, Intrr 11/21/2019 Influenza, Trivalent, High D ose, Split, Preservative Free, Intramuscular 11/29/2018,11/15/2017,11/25/2016,11/24,12/13/2014,11/24/2013 Influenza, Unspecified 11/25/2015 Pfizer SARS-CoV-2 Monovalent Vaccination (12+ Yrs) PURPLE 05/30/2020,05/04/2020 Pneumococcal Conjugate PCV 13 07/16/2014 Td, adsorbed 10/19/2002 Tdap 03/24/2018 Tetanus toxoid, adsorbed 09/07/2006 Varicella 11/24/2006 Social History Tobacco Use Types Packs/Day Years Used Date Smoking Tobacco: Never Smokeless Tobacco: Never Tobacco Cessation:Counseling Given: Not Answered Alcohol Use Standard Drinks/Week Comments Yes 0 (1 standard drink = 0.6 oz pur e alcohol) socially Exercise Vital Sign Answer Date Recorde d Days of Exercise per Week 0 days 2018 Minutes of Exercise per Session 0 min 11/03/2018 Comments No Sex and Gender Information Value Date Recorded Sex Assigned at Not on file Legal Sex Female 8:29 PM ASSEMBLER TRIM Gender Identity Not on file Sexual Orientation Not on file 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, 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 Not on file Not on file Last Filed Vital Signs Vital Sign Reading Time Taken Comments Blood Pressure 143/67 06/01/2024 11:00 AM CDT Pulse 81 06/01/2024 11:00 AM CDT Temperature 36.7 C (98.1 F) 06/01/2024 11:00 AM CDT Respiratory Rate 16 06/01/2024 11:0 0 AM CDT Oxygen Saturation 96% 06/01/2024 11: 00 AM CDT Inhaled Oxygen Concentration - - Weight 65.2 kg (143 lb 12.8 oz) 025 11:00 AM CDT Height 153.4 cm (5' 0.39 ) 06/01/2024 1 1:00 AM CDT Body Mass Index 27.72 06/01/2024 11:00 AM CDT Plan of Treatment Not on file Procedures Procedure Name Priority Date/Time Associated Diagnosis Comments SCREENING MAMMOGRAM BILATERAL W CLARKE Schedule Routine, Read Routine (OP Routine) 06/01/2024 9:43 AM CDT Malignant neoplasm of upper-outer quadrant of left breast in female, estrogen receptor positive (HCC) from Last 3 Months Results * Screening Mammogram Bilateral W Clarke (06/01/2024 9:43 AM CDT) Anatomical Region Laterality Modality Breast Bilateral Mammography Narrative 06/01/2024 11:55 AM CDT Mammogram Technique: Bilateral Digital Breast Tomosynthesis, Bilateral C-view 2D Screening mammogram. Views obtained: bilateral craniocaudal and bilateral mediolateral oblique. Computer Aided Detection was performed. Mammogram Findings: The present examination has been compared to prior imaging studies performed at [facility] on 11/17/2021, 06/01/2022 and 06/03/2023. There are scattered areas of fibroglandular density. There are post breast conservation therapy changes in the left breast. There is no suspicious abnormality in either breast. Impression: There is no mammographic evidence of malignancy. As this patient is over 80 years of age, further mammographic screening can be obtained as clinically indicated. OVERALL FINAL ASSESSMENT: BI-RADS CATEGORY 2: Benign. Procedure Note Ann-Marie Hoskins MD - 06/01/2024 Mammogram Technique: Bilateral Digital Breast Tomosynthesis, Bilateral C-view 2D Screening mammogram. Views obtained: bilateral craniocaudal and bilateral mediolateral oblique. Computer Aided Detection was performed. Mammogram Findings: The present examination has been compared to prior imaging studies performed at [facility] on 11/17/2021, 06/01/2022 and 06/03/2023. There are scattered areas of fibroglandular density. There are post breast conservation therapy changes in the left breast. There is no suspicious abnormality in either breast. Impression: There is no mammographic evidence of malignancy. As this patient is over 80 years of age, further mammographic screeningcan be obtained as clinically indicated. OVERALL FINAL ASSESSMENT: BI-RADS CATEGORY 2: Benign. Rosario Chen MD IMG MAMMO PROCEDURES Final Result from Last 3 Months Insurance [employer] MEDICARE ADVANTAGE MEDICARE AETNA SENIOR SUPPLEMENT [place] [address] [facility] MEDICARE ADVANTAGE Care Teams Monitoring Coordinator Relationship Specialty Start Date End Date Douglas Hatfield MD [address] [place] [address] PCP - General Family Practice 05/06/20 Aft, Kalee Fernandez MD PhD [address] [place] [address] Surgeon Surgical Oncology 08/27/17 Mica Mcarthur MD PhD [address] [place] [address] Radiation Oncologist Radiation Oncology 09/02/17 Aft, Kalee Fernandez MD PhD [address] [place] [address] Referring Physician Surgical Oncology 09/02/17
--- OUTSIDE RECORDS SUMMARY | 2024-06-27 12:07 | XMS_ITS | Clinical Summary ---
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 Slightest signal of short term memory recall but not of consequence in daily activities. Bladder issues: disrupts sleep. Consider Myrbetriq instead of older bladder meds that have TELEMARKETING AGENT side effects. Murmur 07/08/2021 Dizziness and giddiness 09/27/2018 Breast mass 04/18/2018 History of breast cancer 02/21/2018 Malignant neoplasm of upper- outer quadrant of left breast in female, estrogen receptor positive 08/23/2017 Cancer Staging:Pathologic:Stage Unknown(pT1b(2), pNX, cM0, G2, ER: Positive, HI: Positive, HER2: Negative) - Signed by Mica Mcarthur MD PhD on 09/08/2017 Overview (08/23/2017): ER/HI+ Basal cell carcinoma of skin of other parts of f rehana 04/20/2017 Pack's esophagus 08/30/2015 Chest pain 05/08/2014 Essential hypertension 05/08/2014 Hypothyroidism 05/08/2014 Mixed hypercholesterolemia and hypertriglyceride mikki 05/08/2014 Shortness of breath 05/08/2014 Gastroesophageal reflux disease with esophagitis 02/23/2014 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 Encounters Date Type Department Care Team Description 06/02/2024 Telephone [facility] Oncology [address] [place] [phone] Julianne Brenner RN 06/01/2024 11:00 AM CDT Office Visit [facility] Oncology [address] [place] [phone] Rosario Chen MD Constipation, unspecified constipation type (Primary Dx); Malignant neoplasm of upper-outer quadrant of left breast in female, estrogen receptor positive (HCC) 06/01/2024 9:25 AM CDT - 06/01/2024 11:59 PM CDT Hospital Encounter [facility] Breast [facility] ([facility]) [address] [place] [address] Rosario Chen MD Malignant neoplasm of upper-outer quadrant of left breast in female, estrogen receptor positive (HCC) Discharge Disposition: Discharge to home or self care from Last 3 Months Immunizations Immunization Administration Dates Next Due Influenza, Quadrivalent, Hig h Dose, Preservative Free, Intrr 11/21/2019 Influenza, Trivalent, High D ose, Split, Preservative Free, Intramuscular 11/29/2018,11/15/2017,11/25/2016,11/24,12/13/2014,11/24/2013 Influenza, Unspecified 11/25/2015 Pfizer SARS-CoV-2 Monovalent Vaccination (12+ Yrs) PURPLE 05/30/2020,05/04/2020 Pneumococcal Conjugate PCV 13 07/16/2014 Td, adsorbed 10/19/2002 Tdap 03/24/2018 Tetanus toxoid, adsorbed 09/07/2006 Varicella 11/24/2006 Surgical History Surgery Date Site/Laterality Comments GALLBLADDER SURGERY 03/08/2009 - 03/07/2010 BREAST SURGERY 03/08/2017 - 03/07/2018 SKIN CANCER EXCISION 03/08/2017 - 03/07/2018 Medical History Medical History Date Comments Thyroid disease Hypertension Acid reflux Pack's esophageal ulceration HLD (hyperlipidemia) Breast cancer (HCC) left Constipation Family History Medical History Relation Name Comments Stomach cancer Father Family histor y of malignant neoplasm of stomach - (Added by TW Conv) Breast cancer Mother Adenocarcinoma of breast - (Added by TW Conv) Alzheimer's disease Neg Hx Relation Name Status Comments Father Mother Social History Tobacco Use Types Packs/Day Years [...] on file Legal Sex Female 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 Gender Identity Not on file Sexual Orientation Not on file 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[employer], 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 Not on file Not on file Obstetrics History Para Term AB IAB SAB Ectopic Multiple Livin g Live Births 4 4 4 4 4 Date Outcome GA Total Labor Labor/2nd/3rd Weight Sex Type Anes PTL Dee A1 A5 Name Clin 1958 Term M Vag-S pont Living Complications:None 1960 Term F Vag-S pont Living Complications:None 1962 Term M Vag-S pont Living Complications:None 1965 Term M Vag-S pont Living Complications:None Last Filed Vital Signs Vital Sign Reading [...] 06/01/2024 11:00 AM CDT Plan of Treatment Health Maintenance Due Date Last Done Comments Depression Screening 1936 Fall Risk Assessment 1935 Hepatitis B Screening 02/08/1954 Zoster Vaccine (1 of 2) 01/19/2007 Pneumococcal vaccine 65+ (2 of 2 - PPSV23) 09/10/2014 07/16/2014 Well Visit 65+ 03/30/2020 03/30/2019 Covid-19 Vaccine (3 - Pfizer risk series) 06/27/2020 05/30/2020, 05/04/2020 Influenza Vaccine (Season Ended) 2024 11/21/2019, 11/29/2018, 11/15/2017, Additional history exists DTaP/Tdap/Td Vaccine (2 - Td or Tdap) 03/24/2028 03/24/2018, 09/07/2006, 10/19/2002 Procedures Procedure Name Priority Date/Time Associated Diagnosis [...] Final Result from Last 3 Months Insurance [facility] MEDICARE ADVANTAGE MEDICARE AETNA SENIOR SUPPLEMENT COMMERCIAL GENERIC MERISSA [place] [id number] [facility] MEDICARE ADVANTAGE Care Teams Pharmacy Graduate Intern Relationship Specialty Start Date End Date Douglas Hatfield MD [address] [place] [address] PCP - General Family Practice 05/06/20 AftKalee MD PhD [address] [place] [address] Surgeon Surgical Oncology 08/27/17 Mica Mcarthur MD PhD [address] [place] [address] Radiation Oncologist Radiation Oncology 09/02/17 Kalee Munguia MD PhD [address] [place] [address] Referring Physician Surgical Oncology 09/02/17
--- OUTSIDE RECORDS SUMMARY | 2024-06-27 12:07 | XMS_ITS | Encounter Summary ---
Author Organization [facility] Address [address] [facility] [place] [address] Care Team Providers Care Spot Billing Clerk Name Role Phone Ruddy Holliday DO Primary Care Provider [phone] Encounter Details Date Type Department Care Team (Late st Contact Info) Description 02/14/2020 Lab Requisition [facility] [address] [place] [address] Trev Finnegan MD [address] [place] [address] Social History Tobacco Use Types Packs/Day Years Used Date Smoking Tobacco: Never Assessed Comments Unknown Sex and Gender Information Value Date Recorded Sex Assigned at Not on file Legal Sex Female 6:19 AM CALLIOPE PLAYER Gender Identity Not on file Sexual Orientation Not on file documented as of this encounter Plan of Treatment Not on file documented as of this encounter Procedures Procedure Name Priority Date/Time Associated Diagnosis Comments DERMATOPATHOLOGY Routine 02/13/2020 12:0 0 AM CALLIOPE PLAYER documented in this encounter Results * DERMATOPATHOLOGY (02/13/2020 12:00 AM CALLIOPE PLAYER) Case Report Dermatopathology Report Case: [id number] Authorizing Provider: Trev Finnegan MD Collected: 02/13/2020 12:00 AM Ordering Location: [facility] Received: 02/14/2020 12:26 PM Pathologist: Vincenzo Albarran MD Specimen: Skin, left superior pretibia 0 3:06 PM CALLIOPE PLAYER DERMATOPATHOLOGY LABORATORY Final Diagnosis Specimen A. SKIN, left superior pretibia: DERMAL SCAR (L90.5) PRESENT AT MARGIN 0 3:06 PM CALLIOPE PLAYER DERMATOPATHOLOGY LABORATORY Clinical History R/O HAK, SCC, scar. 0 3:06 PM [facility] DERMAT[facility]OR[facility] Gross Description Specimen A: Received is one formalin filled container labeled with the patient's name and designated left superior pretibia. The specimen consists of a punch biopsy measuring [id number], bisected. Jar 0. 0 3:06 PM [facility] DERMATOPATHOLOGY [facility]ORATORY Microscopic Description Specimen A. SKIN, left superior pretibia: There are fibroblasts and collagen bundles oriented parallel to the skin surface with elongated blood vessels, some of which are oriented perpendicular to the skin surface. This lesion is present at the margin of the specimen. 0 3:06 PM [facility] DERMATOPATHOLOGY LABORATORY Disclaimer An external and internal positive and negative controls are appropriate for the histochemical, immunohistochemical and immunofluorescence stain(s) in this case (if any), except where stated explicitly. The performance characteristics of the stain(s) cited in this report were developed and its performance characteristic determined by the Dermatopathology Laboratory at [facility], directed by Dr. Janae Albarran. These tests need not be, and therefore are not, approved by the [place] Food and Drug Administration. The tests are used for clinical purposes. Billing Codes Specimen Charges Stain Charges 63838 1 0 3:06 PM CALLIOPE PLAYER DERMATOPATHOLOGY LABORATORY Embedded Images 0 3:06 PM CALLIOPE PLAYER DERMATOPATHOLOGY LABORATORY Pathology/Cytolog y TISSUE SPECIMEN FROM SKIN / Unknown 02/13/2020 02/14/2020 12:26 PM CALLIOPE PLAYER us Trev Finnegan MD LAB - PATHOLOGY/CYTOLOGY ORD ERABLES Final Result DERMATOPATHOLOGY LABORATORY [facility] - Department of Dermatology [facility] Medicine [address] [place] [address], [address] [place] [address], [facility] [phone] documented in this encounter Visit Diagnoses Not on filedocumented in this encounter Care Teams Spot Billing Clerk Relationship Specialty Start Date End Date Ruddy Hloliday DO [address] [facility] [address] [facility] [address] [place] [address] PCP - General 10/07/17 documented as of this encounter
[2024-06-27 12:37] LABS: Thyroid Stimulating Hormone Reflex 0.086 uIU/mL (0.465-4.68)
[2024-06-27 14:20] LABS: Free T4 Free Thyroxine Reflex 1.16 ng/dL (0.78-2.19)
[2024-06-27 15:04] LABS: Total Triiodothyronine (T3) 1.26 NG/ML (0.97-1.69)
== END 2024-06-27 10:32 | disposition home or self-care (01) ==
PROVIDERS: PCP Family Medicine; Visit Provider Family Medicine
DX: E03.9 Hypothyroidism, unspecified (principal)
CPT/HCPCS: 36415; 84439; 84443; 84480

== ENCOUNTER 2024-11-24 08:43 | Outpatient (CLI) | payer MEDICARE, SELFPAY ==
--- OUTSIDE RECORDS SUMMARY | 2024-11-24 08:46 | XMS_ITS | Encounter Summary ---
Author Organization [facility] Address [address] [place] [address] Phone Care Team Providers Care Coke Oven Patcher Name Role Phone Yasir Lopez MD Primary Care Provider [phone] Aft, Kalee Fernandez MD PhD Unavailable [phone] Mica Mcarthur MD PhD Unavailable [phone] Aft, Kalee Fernandez MD PhD Unavailable [phone] Heather Blanc MD Primary Care Provider Douglas Hatfield MD Primary Care Provider Encounter Details Date Type Department Care Team (Late st Contact Info) Description 03/02/2018 Telephone [facility] Medicine Oncology [address] [facility] [address] [place] [address] Jeffrey Hill MD [facility] [address] [address] Social History Tobacco Use Types Packs/Day Years Used Date Smoking Tobacco: Never Smokeless Tobacco: Never Alcohol Use Standard Drinks/Week Comments Yes 0 (1 standard drink = 0.6 oz pur e alcohol) socially Comments No Sex and Gender Information Value Date Recorded Sex Assigned at Not on file 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 Gender Identity Not on file Sexual Orientation Not on file documented as of this encounter Plan of Treatment Not on file documented as of this encounter Visit Diagnoses Not on filedocumented in this encounter Care Teams Coke Oven Patcher Relationship Specialty Start Date End Date Yasir Lopez MD [address] [place] [address] PCP - General 05/20/16 11/02/18 Heather Blanc MD [address] [place] [id number] [place] [address] PCP - General Family Medicine 11/03/18 05/05/20 Douglas Hatfield MD [address] [place] [id number] [place] [address] PCP - General Family Practice 05/06/20 Kalee Munguia MD PhD [address] [facility] [place] [address] Surgeon Surgical Oncology 08/27/17 Mica Mcarthur MD PhD [address] [facility] [address] [place] [address] Radiation Oncologist Radiation Oncology 09/02/17 Kalee Munguia MD PhD [address] [place] [address] Referring Physician Surgical Oncology 09/02/17 documented as of this encounter
--- OUTSIDE RECORDS SUMMARY | 2024-11-24 08:46 | XMS_ITS | Clinical Summary ---
Author Organization [facility] Address [address] [address] Care Team Providers Care Skein Bleacher Name Role Phone Aft, Kalee Fernandez MD PhD Unavailable [phone] Mica Mcarthur MD PhD Unavailable [phone] Aft, Kalee Fernandez MD PhD Unavailable [phone] Douglas Hatfield MD Primary Care Provider Allergies No known active allergies Medications levothyroxine (SYNTHROID, LEVOTHROID) 50 mcg tablet Take 1 tablet (50 mcg total) by mouth technical sales advisor before breakfast Active esomeprazole DR (NexIUM) 40 [...] mouth daily Active cyanocobalamin/ folic acid (VITAMIN Y26-PAMPK ACID) 1,000-[address], [address] under [...] APPLY TO AFFECTED BOPISY SITE ON LEFT PROTESTANT TWICE DAILY DIRECTED 5 Active Active Problems Problem Noted Date Diagnosed Date Bronchiectasis without complication 11/04/2022 Subjective memory complaints 04/27/2022 Assessment & Plan (04/27/2022 3:46 PM PROGRAM MEDICAL DIRECTOR): Subjective memory complaints No concerns expressed by son. Slightest signal of short term memory recall but not of consequence in daily activities. Bladder issues: disrupts sleep. Consider Myrbetriq instead of older bladder meds that have IOS PROGRAMMER side effects. 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, 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 Not on f ile Not on file Not on file Obstetrics History Para Term AB IAB SAB Ectopic Multiple Livin g Live Births 4 4 4 4 4 Date Outcome GA Total Labor Labor/2nd/3rd Weight Sex Type Anes PTL Dee A1 A5 Name Clin 9 Term M Vag-S pont Living Complications:None 1960 Term F Vag-S pont Living Complications:None 1962 Term M Vag-S pont Living Complications:None 1966 Term M Vag-S pont Living Complications:None Last [...] 11:00 AM CDT Height 153.4 cm (5' 0.39) 06/01/2024 1 1:00 AM CDT Body Mass Index 27.72 06/01/2024 11:00 AM CDT Plan of Treatment Health Maintenance Due Date Last Done Comments Depression Screening 1936 Fall Risk Assessment 1935 Hepatitis B Screening 02[birth year]08/1953 Zoster Vaccine (1 of 2) 01/19/2007 Pneumococcal vaccine 65+ (2 of 2 - PPSV23, PCV20, or PCV21) 09/10/2014 07/16/2014 Osteoporosis Screening-Bone Density Scan 03/08/2018 03/08/2016 Well Visit 65+ 03/30/2020 03/30/2019 Covid-19 Vaccine (3 - Pfizer risk series) 06/27/2020 05/30/2020, 05/04/2020 Influenza Vaccine (#1) 2024 , 11/29/2018, 11/15/2017, Additional history exists DTaP/Tdap/Td Vaccine (2 - Td or Tdap) 03/24/2028 03/24/2018, 09/07/2006, 10/19/2002 Procedures Procedure Name Priority Date/Time Associated Diagnosis Comments DEXA SCAN Routine 03/08/2016 Malignant neoplasm of upper-outer quadrant of left breast in female, estrogen receptor positive (HCC) from Last 3 Months or Most Recently Relevant to Health Maintenance Results * DEXA SCAN (03/08/2016) DEXA Scan Normal Historical Provider MD HEALTH MAINTENANCE Final Result from Last 3 Months or Most Recently Relevant to Health Maintenance Insurance [facility] MEDICARE ADVANTAGE MEDICARE AETNA SENIOR SUPPLEMENT COMMERCIAL GENERIC MERISSA GOODMAN [id number] [facility] MEDICARE ADVANTAGE Care Teams Skein Bleacher Relationship Specialty Start Date End Date Douglas Hatfield MD [address] [place] [address] PCP - General Family Practice 05/06/20 Aft, Kalee Fernandez MD PhD [address] [place] [address] Surgeon Surgical Oncology 08/27/17 Mica Mcarthur MD PhD [address] [place] [address] Radiation Oncologist Radiation Oncology 09/02/17 Jose At, Kalee Fernandez MD PhD [address] [place] [address] Referring Physician Surgical Oncology 09/02/17
--- OUTSIDE RECORDS SUMMARY | 2024-11-24 08:46 | XMS_ITS | Clinical Summary ---
Author Organization [facility] Address [address] [facility] [place] [address] Care Team Providers Care Absorption And Adsorption Engineer Name Role Phone Ruddy Holliday Primary Care Provider Source Comments [facility],non-owned Affiliates and Associated Physician Practices is amultiple site organization consisting of ambulatory clinics and hospital sitesin [place], [place], [place] and [place]. This disclosure is being madepursuant to the Care Everywhere program and may not contain all information available regarding this patient. Last updated 17.[facility] Immunizations Immunization Administration Dates Next Due INFLUENZA VACCINE, HIGH-DOSE , QUADR. (FLUZONE HIGH-DOSE QUADRIVALENT; 65Y+), 0.7 ML (HD-IIV4) 11/25/2015 Social History Tobacco Use Types Packs/Day Years Used Date Smoking Tobacco: Never Assessed Comments Unknown Sex and Gender Information Value Date Recorded Sex Assigned at Not on file Legal Sex Female 6:19 AM EARTH AUGER OPERATOR Gender Identity Not on file Sexual [...] yrs (1 - 1-dose 75+ series) 02/08/2011 DEPRESSION SCREENING 03/08/2024 COVID-19 VACCINE ( - 2023-2 5 season) 2024 INFLUENZA VACCINE (#1) 2024 11/25/2015 HEPATITIS B VACCINE Aged Out No longe [...] age to complete this topic Insurance MEDICARE [facility] Address: [facility] [id number] [place] [address] Care Teams Absorption And Adsorption Engineer Relationship Specialty Start Date End Date Ruddy Holliday DO [address] [facility] [address] [place] [address] PCP - General 10/07/17
--- OUTSIDE RECORDS SUMMARY | 2024-11-24 08:46 | XMS_ITS | Encounter Summary ---
Author Organization [facility] Address [address] [facility] [place] [address] Care Team Providers Care Roller Skates Assembler Name Role Phone Ruddy Holliday DO Primary Care Provider [phone] Encounter Details Date Type Department Care Team (Late st Contact Info) Description 09/06/2023 Lab Requisition [facility] - DermPath Lab [address] [place] [phone] Trev Finnegan MD [address] [place] [address] Social History Tobacco Use Types Packs/Day Years Used Date Smoking Tobacco: Never Assessed Comments Unknown Sex and Gender Information Value Date Recorded Sex Assigned at Not on file Legal Sex Female 6:19 AM INFECTIOUS DISEASES PHYSICIAN Gender Identity Not on file Sexual Orientation Not on file documented as of this encounter Plan of Treatment Not on file documented as of this encounter Procedures Procedure Name Priority Date/Time Associated Diagnosis Comments DERMATOPATHOLOGY Routine 09/01/2023 12:0 0 AM CDT documented in this encounter Results * DERMATOPATHOLOGY (09/01/2023 12:00 AM CDT) Case Report Dermatopathology Report Case: [id number] Authorizing Provider: Trev Finnegan MD Collected: 09/01/2023 12:00 AM Ordering Location: [facility] - Received: 09/06/2023 11:04 AM DermPath Lab Pathologist: Mandy Macias MD Specimen: Skin, left side superiorly on nose 1:17 PM CDT DERMATOPATHOLOGY LABORATORY Final Diagnosis Specimen A. SKIN, left side superiorly on nose: BASAL CELL CARCINOMA, NODULAR TYPE (C44.311) 4 1:17 PM CDT DERMATOPATHOLOGY LABORATORY at 1317 CDT Clinical History R/O BCC 1:17 PM CDT [...] nuclear to cytoplasmic ratio and peripheral palisading. 4 1:17 PM CDT DERMATOPATHOLOGY LABORATORY Disclaimer An [...] purposes. Billing Codes Specimen Charges Stain Charges 33478 1 1:17 PM CDT DERMATOPATHOLOGY LABORATORY Embedded Images 1:17 PM CDT DERMATOPATHOLOGY LABORATORY Pathology/Cytolog y TISSUE SPECIMEN FROM SKIN / Unknown 09/01/2023 09/06/2023 11:04 AM CDT us Trev Finnegan MD LAB - PATHOLOGY/CYTOLOGY ORD ERABLES Final Result DERMATOPATHOLOGY LABORATORY [facility] - Department of Dermatology [address], [address] [place] [address], [facility] [phone] documented in this encounter Visit Diagnoses Not on filedocumented in this encounter Care Teams Roller Skates Assembler Relationship Specialty Start Date End Date Ruddy Holliday DO [address] [facility] [address] [facility] [address] [place] [address] PCP - General 10/07/17 documented as of this encounter
--- OUTSIDE RECORDS SUMMARY | 2024-11-24 08:46 | XMS_ITS | Encounter Summary ---
Author Organization [facility] Address [address] [place] [address] Care Team Providers Care Pe Manager Name Role Phone Ruddy Holliday DO Primary Care Provider [phone] Encounter Details Date Type Department Care Team (Late st Contact Info) Description 02/14/2020 Lab Requisition [facility] DermPath Lab [address] [place] [address] Trev Finnegan MD [address] [place] [address] Social History Tobacco Use Types Packs/Day Years Used Date Smoking Tobacco: Never Assessed Comments Unknown Sex and Gender Information Value Date Recorded Sex Assigned at Not on file Legal Sex Female 6:19 AM WATCHGUARD Gender Identity Not on file Sexual Orientation Not on file documented as of this encounter Plan of Treatment Not on file documented as of this encounter Procedures Procedure Name Priority Date/Time Associated Diagnosis Comments DERMATOPATHOLOGY Routine 02/13/2020 12:0 0 AM WATCHGUARD documented in this encounter Results * DERMATOPATHOLOGY (02/13/2020 12:00 AM WATCHGUARD) Case Report Dermatopathology Report Case: [id number] Authorizing Provider: Trev Finnegan MD Collected: 02/13/2020 12:00 AM Ordering Location: [facility] DermPath Lab Received: 02/14/2020 12:26 PM Pathologist: Vincenzo Albarran MD Specimen: Skin, left superior pretibia 0 3:06 PM WATCHGUARD DERMATOPATHOLOGY LABORATORY Final Diagnosis Specimen A. SKIN, left superior pretibia: DERMAL SCAR (L90.5) PRESENT AT MARGIN 0 3:06 PM [facility] DERMATOPATHOLOGY LABORATORY at 1506 WATCHGUARD Clinical History R/O HAK, SCC, scar. 0 3:06 PM [facility] DERMATOPATHOLOGY LABORATORY Gross Description Specimen A: Received is one formalin filled container labeled with the patient's name and designated left superior pretibia. The specimen consists of a punch biopsy measuring [id number], bisected. Jar 0. 0 3:06 PM [facility] DERMATOPATHOLOGY LABORATORY Microscopic Description Specimen A. SKIN, left superior pretibia: There are fibroblasts and collagen bundles oriented parallel to the skin surface with elongated blood vessels, some of which are oriented perpendicular to the skin surface. This lesion is present at the margin of the specimen. 0 3:06 PM [facility] DERMATOPATHOLOGY LABORATORY Disclaimer An external and internal positive and negative controls are appropriate for the histochemical, immunohistochemical and immunofluorescence stain(s) in this case (if any), except where stated explicitly. The performance characteristics of the stain(s) cited in this report were developed and its performance characteristic determined by the Dermatopathology Laboratory at [facility], directed by Dr. Janae Albarran. These tests need not be, and therefore are not, approved by the [place] Food and Drug Administration. The tests are used for clinical purposes. Billing Codes Specimen Charges Stain Charges 90704 1 0 3:06 PM WATCHGUARD DERMATOPATHOLOGY LABORATORY Embedded Images 0 3:06 PM [facility] DERMATOPATHOLOGY LABORATORY Pathology/Cytolog y TISSUE SPECIMEN FROM SKIN / Unknown 02/13/2020 02/14/2020 12:26 PM WATCHGUARD us Trev Finnegan MD LAB - PATHOLOGY/CYTOLOGY ORD ERABLES Final Result DERMATOPATHOLOGY LABORATORY [facility] - Department of Dermatology [facility] Medicine [address] [place] [address], [address] [place] [address], [facility] [phone] documented in this encounter Visit Diagnoses Not on filedocumented in this encounter Care Teams Pe Manager Relationship Specialty Start Date End Date Ruddy Holliday DO [address] [facility] [address] [place] [address] PCP - General 10/07/17 documented as of this encounter
--- OUTSIDE RECORDS SUMMARY | 2024-11-24 08:46 | XMS_ITS | Encounter Summary ---
Author Organization [facility] Address [address] [facility] [place] [address] Care Team Providers Care Data Analytics Analyst Name Role Phone Ruddy Holliday DO Primary Care Provider [phone] Encounter Details Date Type Department Care Team (Late st Contact Info) Description 06/19/2020 Lab Requisition [facility] DermPath Lab [address] [place] [phone] Trev Finnegan MD [address] [place] [address] Social History Tobacco Use Types Packs/Day Years Used Date Smoking Tobacco: Never Assessed Comments Unknown Sex and Gender Information Value Date Recorded Sex Assigned at Not on file Legal Sex Female 6:19 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 Gender Identity Not on file Sexual Orientation Not on file documented as of this encounter Plan of Treatment Not on file documented as of this encounter Procedures Procedure Name Priority Date/Time Associated Diagnosis Comments DERMATOPATHOLOGY Routine 06/18/2020 12:0 0 AM CDT documented in this encounter Results * DERMATOPATHOLOGY (06/18/2020 12:00 AM CDT) Case Report Dermatopathology Report Case: [id number] Authorizing Provider: Trev Finnegan MD Collected: 06/18/2020 12:00 AM Ordering Location: [facility] DermPath Lab Received: 06/19/2020 01:14 PM [...] by Mandy Macias MD on 07/04/2020 at 1154 CDT at 1400 CDT Clinical History R/O BCC, SCC, ISK. 11:55 AM CDT DERMATOPATHOLOGY LABORATORY Gross Description Specimen A: Received is one formalin filled container labeled with the patient's name and designated left mid extensor radial forearm. The specimen consists of a shave biopsy measuring [id number]. Jar 0. 11:55 AM CDT DERMATOPATHOLOGY LABORATORY [...] characteristic determined by the Dermatopathology Laboratory at [facility], directed by Dr. Janae Albarran. These tests need not be, and therefore are not, approved by the [place] Food and Drug Administration. The tests are used for clinical purposes. Billing Codes Specimen Charges Stain Charges 85414 1 11:55 AM CDT DERMATOPATHOLOGY LABORATORY Embedded Images 11:55 AM CDT DERMATOPATHOLOGY LABORATORY Pathology/Cytolog y TISSUE SPECIMEN FROM SKIN / Unknown 06/18/2020 06/19/2020 1:14 PM CDT Trev Finnegan MD LAB - PATHOLOGY/CYTOLOGY ORD ERABLES Edited Result - Final DERMATOPATHOLOGY LABORATORY [facility] - Department of Dermatology [facility] [address] [place] [address], [address] [phone] documented in this encounter Visit Diagnoses Not on filedocumented in this encounter Care Teams Data Analytics Analyst Relationship Specialty Start Date End Date Ruddy Holliday DO [address] [facility] [address] [facility] [address] [place] [address] PCP - General 10/07/17 documented as of this encounter
--- OUTSIDE RECORDS SUMMARY | 2024-11-24 08:46 | XMS_ITS | Encounter Summary ---
Author Organization [facility] Address [address] [facility] [place] [address] Care Team Providers Care Materials Handling Coordinator Name Role Phone Ruddy Holliday DO Primary Care Provider [phone] Encounter Details Date Type Department Care Team (Late st Contact Info) Description 11/18/2017 Lab Requisition [facility] Care DermPath Lab [address] [facility], [facility] [place] [phone] Trev Finnegan MD [address] [place] [address] Social History Tobacco Use Types Packs/Day Years Used Date Smoking Tobacco: Never Assessed Comments Unknown Sex and Gender Information Value Date Recorded Sex Assigned at Not on file Legal Sex Female 6:19 AM SENIOR BUSINESS OBJECTS DEVELOPER Gender Identity Not on file Sexual Orientation Not on file documented as of this encounter Plan of Treatment Not on file documented as of this encounter Procedures Procedure Name Priority Date/Time Associated Diagnosis Comments DERMATOPATHOLOGY Routine 11/17/2017 12:0 0 AM CDT documented in this encounter Results * DERMATOPATHOLOGY (11/17/2017 12:00 AM CDT) Case Report Dermatopathology Report Case: [id number] Authorizing Provider: rTev Finnegan MD Collected: 11/17/2017 12:00 AM Pathologist: Kayli Baldwin MD Received: 11/18/2017 01:06 PM Specimen: Skin, left side nose 8 5:39 PM CDT DERMATOPATHOLOGY LABORATORY Final Diagnosis Specimen A. SKIN, left side nose: DERMAL SCAR; PRESENT AT MARGIN (L90.5) RESIDUAL BASAL CELL CARCINOMA NOT IDENTIFIED (see microscopic description) 5:39 PM CDT DERMATOPATHOLOGY LABORATORY at 1739 CDT Clinical History R/O bx proven BCC, nodular. [id number]. Check margins. 5:39 PM CDT DERMATOPATHOLOGY LABORATORY Gross Description Specimen A: Received is one formalin filled container labeled with the patient's name and designated left side nose. The specimen consists of a curettage and desiccation biopsy measuring [id number]. The margin is inked green. Jar 0. [...] characteristic determined by the Dermatopathology Laboratory at [facility]. These tests need not be, and therefore are not, approved by the [place] Food and Drug Administration. The tests are used for clinical purposes. Billing Codes Specimen Charges Stain Charges 95522 1 8 5:39 PM CDT DERMATOPATHOLOGY LABORATORY Embedded Images 8 5:39 PM CDT DERMATOPATHOLOGY LABORATORY Pathology/Cytolog y TISSUE SPECIMEN FROM SKIN / Unknown 11/17/2017 11/18/2017 1:06 PM CDT Trev Finnegan MD LAB - PATHOLOGY/CYTOLOGY ORD ERABLES Final Result DERMATOPATHOLOGY LABORATORY [facility] - Department of Dermatology [address] [place] [address], [address] [place] [address], [facility] [phone] documented in this encounter Visit Diagnoses Not on filedocumented in this encounter Care Teams Materials Handling Coordinator Relationship Specialty Start Date End Date Ruddy Holliday DO [address] [facility] [address] [address] PCP - General 10/07/17 documented as of this encounter
--- OUTSIDE RECORDS SUMMARY | 2024-11-24 08:46 | XMS_ITS ---
Author Organization [facility] Address [address] [address] Care Team Providers Care Dope Heater Name Role Phone Aft, Kalee Fernandez MD PhD Unavailable [phone] Mica Mcarthur MD PhD Unavailable [phone] Aft, Kalee Fernandez MD PhD Unavailable [phone] Douglas Hatfield MD Primary Care Provider Active Problems Problem Noted Date Diagnosed Date Bronchiectasis without complication 11/04/2022 Subjective memory complaints 04/27/2022 Assessment & Plan (04/27/2022 3:46 PM HOSPICE CASE MANAGER): Subjective memory complaints No concerns expressed by son. Slightest signal of short term memory recall but not of consequence in daily activities. Bladder issues: disrupts sleep. Consider Myrbetriq instead of older bladder meds that have FOOD ORDER DELIVERY RUNNER side effects. Murmur 07/08/2021 Dizziness and giddiness 09/27/2018 Breast mass 04/18/2018 History of breast cancer 02/21/2018 Malignant neoplasm of upper- outer quadrant of left breast in female, estrogen receptor positive 08/23/2017 Cancer Staging:Pathologic:Stage Unknown(pT1b(2), pNX, cM0, G2, ER: Positive, MT: Positive, HER2: Negative) - Signed by Mica Mcarthur MD PhD on 09/08/2017 Overview (08/23/2017): ER/MT+ Basal cell carcinoma of skin of other [...]
--- OUTSIDE RECORDS SUMMARY | 2024-11-24 08:46 | XMS_ITS | Encounter Summary ---
Author Organization [facility] Address [address] [facility] [place] [address] Care Team Providers Care Rf Microwave Engineer Name Role Phone Ruddy Holliday DO Primary Care Provider [phone] Encounter Details Date Type Department Care Team (Late st Contact Info) Description 10/07/2017 Lab Requisition [facility] Care DermPath Lab [address] [facility], [facility] [place] [phone] Trev Finnegan MD [address] [place] [address] Social History Tobacco Use Types Packs/Day Years Used Date Smoking Tobacco: Never Assessed Comments Unknown Sex and Gender Information Value Date Recorded Sex Assigned at Not on file Legal Sex Female 6:[address]STER Gender Identity Not on file Sexual Orientation Not on file documented as of this encounter Plan of Treatment Not on file documented as of this encounter Procedures Procedure Name Priority Date/Time Associated Diagnosis Comments DERMATOPATHOLOGY Routine 10/06/2017 12:0 0 AM CDT documented in this encounter Results * DERMATOPATHOLOGY (10/06/2017 12:00 AM CDT) Case Report Dermatopathology Report Case: [id number] Authorizing Provider: Trev Finnegan MD Collected: 10/06/2017 [...] CELL CARCINOMA, NODULAR TYPE (C44.311) 1:09 PM T DERMATOPATHOLOGY LABORATORY at 1309 CDT Clinical History A: R/O SCC,BCC B: R/O BCC 1:09 PM CDT DERMATOPATHOLOGY LABORATORY Gross Description Specimen [...] measuring 6x6x2 mm. Jar 0. 1:09 PM T DERMATOPATHOLOGY LABORATORY Microscopic Description Specimen A. SKIN, [...] cytoplasmic ratio and peripheral palisading. 1:09 PM T DERMATOPATHOLOGY LABORATORY Disclaimer An external and internal positive and negative controls are appropriate for the histochemical, immunohistochemical and immunofluorescence stain(s) in this case (if any), except where stated explicitly. The performance characteristics of the stain(s) cited in this report were developed and its performance characteristic determined by the Dermatopathology Laboratory at [facility]. These tests need not be, and therefore are not, approved by the [place] Food and Drug Administration. The tests are used for clinical purposes. Billing Codes Specimen Charges Stain Charges 86436 38546 1 1 1:09 PM CDT DERMATOPATHOLOGY LABORATORY Embedded Images 08/03/201 8 1:09 PM CDT DERMATOPATHOLOGY LABORATORY Pathology/Cytology TISSUE SPECIMEN FROM SKIN / Unknown 10/06/2017 10/07/2017 11:37 AM CDT Miscellaneous samples (specimen) TISSUE SPECIMEN FROM SKIN / Unknown 10/06/2017 10/07/2017 11:37 AM CDT us Trev Finnegan MD LAB - PATHOLOGY/CYTOLOGY ORD ERABLES Final Result DERMATOPATHOLOGY LABORATORY [facility] - Department of Dermatology [address] [facility], 5th Floor Lab [address] [phone] documented in this encounter Visit Diagnoses Not on filedocumented in this encounter Care Teams Rf Microwave Engineer Relationship Specialty Start Date End Date Ruddy Holliday DO [address] [facility] [address] [place] [address] PCP - General 10/07/17 documented as of this encounter
--- OUTSIDE RECORDS SUMMARY | 2024-11-24 08:46 | XMS_ITS | Encounter Summary ---
Author Organization [facility] Address [address] [place] [address] Phone Care Team Providers Care Childcare Teacher Name Role Phone Aft, Kalee Fernandez MD PhD Unavailable [phone] Mica Mcarthur MD PhD Unavailable [phone] Aft, Kalee Fernandez MD PhD Unavailable [phone] Heather Blanc MD Primary Care Provider Douglas [...] on file Legal Sex Female 8:29 PM PEST CONTROL SPECIALIST Gender Identity Not on file Sexual Orientation [...] on filedocumented in this encounter Care Teams Childcare Teacher Relationship Specialty Start Date End Date Heather Blanc MD [address] [place] [address] PCP - General Family Medicine 11/03/18 05/05/20 Douglas Hatfield MD [address] [facility] [address] [place] [address] PCP - General Family Practice 05/06/20 AftKalee MD PhD [address] [place] [address] Surgeon Surgical Oncology 08/27/17 Mica Mcarthur MD PhD [address] [facility] [address] [place] [address] Radiation Oncologist Radiation Oncology 09/02/17 Kalee Munguia MD PhD [address] [place] [address] Referring Physician Surgical Oncology 09/02/17 documented as of this encounter
[2024-11-24 13:30] LABS: Hematocrit 39.3 % (37.0-47.0); Hemoglobin 12.6 g/dL (12.0-15.0); Immature Granulocyte Percent A 0.3 % (0-0.5); Lymphocytes Absolute Auto 1.97 K/mm3 (0.9-3.2); Mean Corpuscular HGB Conc 32.1 g/dl (32-36); Mean Corpuscular Hemoglobin 32.9 pg (26-34); Mean Corpuscular Volume 102.6 fl (80-100); Nucleated Red Blood Cells Absolute Auto 0.000 K/mm3 (0.0-0.012); Nucleated Red Blood Cells Perc 0.0 % (0.0-0.2); Platelet Count Result 358 k/mm3 (150-375); Red Blood Count 3.83 M/mm3 (4.2-5.4); White Blood Count 7.3 K/mm3 (4.5-10.0)
[2024-11-24 13:37] LABS: Alanine Aminotransferase 17 U/L (6-35); Albumin Level 4.2 g/dL (3.5-5.1); Alkaline Phosphatase 54 U/L (38-126); Anion Gap 7 mmol/L (4-12); Aspartate Amino Transferase 39 U/L (14-36); Bilirubin,Total 0.5 mg/dL (0.2-1.3); Blood Urea Nitrogen 21 mg/dL (7-17); Calcium 9.5 mg/dL (8.4-10.2); Carbon Dioxide 28 mmol/L (22-30); Chloride 101 mmol/L (98-107); Cholesterol 296 mg/dL (0-200); Estimated Glomerular Filt Rate 39; Glucose 90 mg/dL (65-110); HDL Direct 38 mg/dL; Potassium 4.2 mmol/L (3.4-5.0); Sodium 136 mmol/L (137-145); Total Protein 7.9 g/dL (6.3-8.2); Triglycerides 257 mg/dL (<150)
[2024-11-24 14:17] LABS: Thyroid Stimulating Hormone Reflex 11.700 uIU/mL (0.465-4.68)
[2024-11-24 14:22] LABS: Hemoglobin A1C 5.7 % (<5.7)
[2024-11-24 15:21] LABS: Vitamin B12 718.0 pg/mL (239-931)
[2024-11-24 16:53] LABS: Free T4 Free Thyroxine Reflex 0.73 ng/dL (0.78-2.19)
== END 2024-11-24 08:44 | disposition home or self-care (01) ==
LOC: ANHGOSHLAB 08:44
PROVIDERS: PCP Family Medicine; Visit Provider Family Medicine
DX: E78.5 Hyperlipidemia, unspecified (principal); E03.9 Hypothyroidism, unspecified; I12.9 Hypertensive chronic kidney disease with stage 1 through stage 4 chronic kidney disease, or unspecified chronic kidney disease; N18.30 Chronic kidney disease, stage 3 unspecified; R73.9 Hyperglycemia, unspecified; E55.9 Vitamin D deficiency, unspecified; E53.8 Deficiency of other specified B group vitamins
CPT/HCPCS: 36415; 80053; 80061; 82306; 82607; 83036; 84439; 84443; 85025

== ENCOUNTER 2025-01-09 09:50 | Outpatient (CLI) | payer MEDICARE, SELFPAY ==
--- OUTSIDE RECORDS SUMMARY | 2009-07-30 10:15 | XMS_ITS | Continuity of Care Document ---
Author Organization [facility] Address [address] [place] [address] Dr Edouard [address] [place] [phone] Phone Care Team Providers Care Urgent Care Physician Assistant Name Role Phone Maranda Lainez Unavailable Unavailable Procedures Procedure Date Eye Exam & Treatment Refraction BF Polycarb Sphcyl [place] To +/-4d .122d [facility] Post-op Follow-up Visit After Cataract Laser Surgery Post-op Follow-up Visit After Cataract Laser Surgery Eye Exam & Treatment Office/outpatient Visit, Est Eye Exam Established Pt BF Polycarb Sphcyl [place] To +/-4d .122d Anti-reflective Coating Roobiq [employer] Frames Deluxe [facility] BF Polycarb Sphcyl [place] To +/-4d .122d Anti-reflective Coating Polycarb Lens Per Lens Post-op Follow-up Visit Post-op Follow-up Visit Post-op Follow-up Visit Remove Cataract, Insert Lens Eye Exam & Treatment [employer] BF Polycarb Sphcyl [place] To +/-4d .122d Anti-reflective Coating [facility] Office/outpatient Visit, Est Visual Functional Status Assessed Refraction Office/outpatient Visit, Est Visual Functional Status Assessed Eye Exam & Treatment Visual Functional Status Assessed Advance Directives Directive Yes / No Effective Date File Name No Information Encounters Encounter Description Practice Location Reason(s) For Visit Diagnoses Date Provider Providers Copied on Encounter [facility], [address] [place] [address] [address], [place], [place], [id number], tel:[phone] [facility] No Information 0 Fatou Vasquez [address] , [address], [place], [address], . tel:[phone] [facility], [address], [place], [place], [id number], tel:[phone] [facility] No Information 9 [facility] . [address] [facility], [facility] [address], [place], [id number], . tel:[phone] Referring Provider: Maranda Toussaint, [address], [place], [place], [facility]. tel:[phone] g Provider: Renee Monroe, [address] [place], [address]. tel:[phone] [facility], [address] [place] [address] [address], [place], [place], [address], [place] tel:[phone] [facility] No Information 9 Fatou Vasquez [address] , [address], [place], [address], [place]. tel:[phone] [facility], [address], [place], [place], [address], [place] tel:[phone] Nov [facility] No Information 9 Fatou Vasquez [address] , [address], [place], [place], [facility], [place]. tel:[phone] [facility], [address] [place] [address] [address], [place], [place], [address], [place] tel:[phone] [facility] No Information Apr-1 0-200 9 Fatou Maranda. [address] , [address], [place], [place], [facility], [place]. tel:[phone] [facility], [address] [place] [address] [address], [place], [place], [address], [place] tel:[phone] [facility] No Information Mar-0 4-200 9 Fatou Cabreran. [address] , [address], [place], [facility], [place]. tel:[phone] [facility], [address] [place] [address] [address], [place], [place], [address], [place] tel:[phone] [facility] No Information Mar-0 3-200 9 Fatou Maranda. [address] , [address], [place], [facility], [place]. tel:[phone] Office/outpat ient Visit, Est [facility], [address] [place] [address] [address], [place], [place], [address], [place] tel:[phone] [facility] No Information Aug-2 6-200 8 Fatou Cabreran. [address] , [address], [place], [facility], [place]. tel:[phone] [facility], [address] [place] [address] [address], [place], [place], [address], [place] tel:[phone] [facility] No Information Nirmal-0 8-200 8 Fatou Cabreran. [address] , [address], [place], [facility], [place]. tel:[phone] [facility], [address] [place] [address] [address], [place], [place], [address], [place] tel:[phone] [facility] No Information July-2 8-200 8 [employer] . [address] [facility], [address], [place], [place], [address], [place]. tel:[phone] Consulting Provider: Jacque Peterson, [address] [place] [address], [address]. tel:[phone] [facility], [address] [place] [address] [address], [place], [place], [address], [place] tel:[phone] [facility] No Information July-1 2-200 8 [facility] [employer] . [address] [facility], [address], [place], [place], [address], [place]. tel:[phone] Consulting Provider: Jacque Peterson, [address] [place] [address], [address]. tel:[phone] [facility], [address] [place] [address] [address], [place], [place], [address], [place] tel:[phone] [facility] No Information July-0 7-200 8 [employer] . [address] [facility], [address], [place], [place], [address], [place]. tel:[phone] Referring Provider: Maranda Toussaint, [address], [place], [address]. tel:[phone] g Provider: Renee Monroe, [address] [place], [address]. tel:[phone] [facility], [address], [place], [place], [address], [place] tel:[phone] [facility] No Information Jun-2 9-200 8 Fatou Low. [address] , [address], [place], [address], [place]. tel:[phone] [facility], [address], [place], [place], [address], [place] tel:[phone] [facility] No Information Apr-0 8-200 8 Fatou Low. [address], [place], [facility], [place]. tel:[phone] [facility], [address], [place], [place], [address], [place] tel:[phone] [facility] No Information Mar-2 7-200 8 Sosa OD Gio. [address] , [address], [place], [facility], [place]. tel:[phone] [facility], [address] [place] [address] [address], [place], [place], [address], [place] tel:[phone] Nov [facility] No Information May-2 6-200 8 Fatou Low. [address] , [address], [place], [facility], [place]. tel:[phone] [facility], [address], [place], [place], [address], [place] tel:[phone] [facility] No Information Feb-2 6-200 8 Fatou Low. [address] , [address], [place], [facility], [place]. tel:[phone] Referring Provider: Maranda Toussaint, [address], [place], [facility]. tel:[phone] [facility], [address] [place] [address] [address], [place], [place], [address], [place] tel:[phone] [facility] No Information Aug-1 0-200 7 [employer] . [address] [facility], [address], [place], [place], [address], [place]. tel:[phone] Referring Provider: Maranda Toussaint, [address], [place], [address]. tel:[phone] saavedra Provider: Renee Monroe, [address] [facility], [place], [address]. tel:[phone] Office/outpat ient Visit, [facility], [address], [place], [place], [address], [place] tel:[phone] [facility] No Information 0-200 7 Lainez Maranda. [address] , [address], [place], [address], [place]. tel:[phone] Office/outpat ient Visit, [facility], [address], [place], [place], [address], [place] tel:[phone] [facility] No Information 6200 7 Estefany Mcarthur. [address] [place], [place], [facility], [place]. tel:[phone] [facility], [address], [place], [place], [address], [place] tel:[phone] [facility] No Information 4-200 7 Lainez Maranda. [address] [facility] , [address], [place], [facility], . tel:[phone] Family History Family Member Type Diagnosis Age At Onset No Information Payers Payer name Insurance type Covered green party ID Authoriza tion(s) [place] [id number] Social History Type Description Quantity Date Captured Comments Sex Female Smoking Status No Information Chief Complaint And Reason For Visit No Information Reason For Referral Reason For Referral No Information History Of Present Illness Encounter Date Complaint History Of Prese nt Illness No Information Functional Status Date Functional Assessmen t No Information Instructions Date Instruction Additional Infor mation No Information Assessments Type Assessment Date No Information Patient Care Teams Name Effective Dates (start - stop) Status Members No Information
--- OUTSIDE RECORDS SUMMARY | 2025-01-09 11:05 | XMS_ITS | Encounter Summary ---
Author Organization [facility] Address [address] [facility] [place] [address] Care Team Providers Care Puttier Name Role Phone Ruddy Holliday DO Primary Care Provider [phone] Encounter Details Date Type Department Care Team (Late st Contact Info) Description 06/19/2020 Lab Requisition [facility] [address] [place] [id number] Trev Finnegan MD [address] [place] [address] Social History Tobacco Use Types Packs/Day Years Used Date Smoking Tobacco: Never Assessed Comments Unknown Sex and Gender Information Value Date Recorded Sex Assigned at Not on file 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 Gender Identity Not on file Sexual Orientation Not on file documented as of this encounter Plan of Treatment Not on file documented as of this encounter Procedures Procedure Name Priority Date/Time Associated Diagnosis Comments DERMATOPATHOLOGY Routine 06/18/2020 12:0 0 AM CDT documented in this encounter Results * DERMATOPATHOLOGY (06/18/2020 12:00 AM CDT) Case Report Dermatopathology Report Case: [id number] Authorizing Provider: Trev Finnegan MD Collected: 06/18/2020 12:00 AM Ordering Location: [facility] Received: 06/19/2020 01:14 PM Pathologist: [...] specimen consists of a shave biopsy measuring [id number]. Jar 0. 11:55 AM CDT DERMATOPATHOLOGY LABORATORY [...] characteristic determined by the Dermatopathology Laboratory at [facility], directed by Dr. Janae Albarran. These tests need not be, and therefore are not, approved by the [place] Food and Drug Administration. The tests are used for clinical purposes. Billing Codes Specimen Charges Stain Charges 44730 1 11:55 AM CDT DERMATOPATHOLOGY LABORATORY Embedded Images 11:55 AM CDT DERMATOPATHOLOGY LABORATORY Pathology/Cytolog y TISSUE SPECIMEN FROM SKIN / Unknown 06/18/2020 06/19/2020 1:14 PM CDT Trev Finnegan MD LAB - PATHOLOGY/CYTOLOGY ORD ERABLES Edited Result - Final DERMATOPATHOLOGY LABORATORY [facility] - Department of Dermatology [facility] Specialized Medicine [address] [place] [address], [address]rd [address] [phone] documented in this encounter Visit Diagnoses Not on filedocumented in this encounter Care Teams Puttier Relationship Specialty Start Date End Date Ruddy Holliday DO [address] [facility] [address] [facility] [address] [place] [address] PCP - General 10/07/17 documented as of this encounter
--- OUTSIDE RECORDS SUMMARY | 2025-01-09 11:05 | XMS_ITS | Encounter Summary ---
Author Organization [facility] Address [address] [place] [address] Phone Care Team Providers Care Law Tutor Name Role Phone Yasir Lopez MD Primary Care Provider [phone] Aft, Kalee Fernandez MD PhD Unavailable [phone] Mica Macrthur MD PhD Unavailable [phone] Aft, Kalee Fernandez MD PhD Unavailable [phone] Heather Blanc MD Primary Care Provider Douglas Hatfield MD Primary Care Provider Encounter Details Date Type Department Care Team (Late st Contact Info) Description 03/02/2018 Telephone [facility] Medicine Oncology [address] [facility] [address] [place] [address] Jeffrey Hill MD [facility] [address] [address] Social History Tobacco Use Types Packs/Day Years Used Date Smoking Tobacco: Never Smokeless Tobacco: Never Alcohol Use Standard Drinks/Week Comments Yes 0 (1 standard drink = 0.6 oz pur e alcohol) socially Comments No Sex and Gender Information Value Date Recorded Sex Assigned at Not on file 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 Gender Identity Not on file Sexual Orientation Not on file documented as of this encounter Plan of Treatment Not on file documented as of this encounter Visit Diagnoses Not on filedocumented in this encounter Care Teams Law Tutor Relationship Specialty Start Date End Date Yasir Lopez MD [address] [place] [address] PCP - General 05/20/16 11/02/18 Heather Blanc MD [address] [place] [id number] [place] [address] PCP - General Family Medicine 11/03/18 05/05/20 Douglas Hatfield MD [address] [place] [id number] [place] [address] PCP - General Family Practice 05/06/20 Kalee Munguia MD PhD [address] [facility] [place] [address] Surgeon Surgical Oncology 08/27/17 Mica Mcarthur MD PhD [address] [facility] [address] [place] [address] Radiation Oncologist Radiation Oncology 09/02/17 Kalee Munguia MD PhD [address] [place] [address] Referring Physician Surgical Oncology 09/02/17 documented as of this encounter
--- OUTSIDE RECORDS SUMMARY | 2025-01-09 11:05 | XMS_ITS | Clinical Summary ---
Author Organization [facility] Address [address] [facility] [place] [address] Care Team Providers Care Credit Verifier Name Role Phone Ruddy Holliday Primary Care Provider [phone] [facility],non-owned Affiliates and Associated Physician Practices is amultiple site organization consisting of ambulatory clinics and hospital sitesin [place], [place], [place] and [place]. This disclosure is being madepursuant to the Care Everywhere program and may not contain all information available regarding this patient. Last updated 17.[facility] Immunizations Immunization Administration Dates Next Due INFLUENZA VACCINE, HIGH-DOSE , QUADR. 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
--- OUTSIDE RECORDS SUMMARY | 2025-01-09 11:05 | XMS_ITS | Encounter Summary ---
Author Organization [facility] Health Address [address] [facility] [place] [address] Care Team Providers Care Driver Utility Worker Name Role Phone Ruddy Holliday DO Primary Care Provider [phone] Encounter Details Date Type Department Care Team (Late st Contact Info) Description 11/18/2017 Lab Requisition [facility] Care DermPath Lab [address] [facility] [place] [address] Trev Finnegan MD [address] [place] [address] Social History Tobacco Use Types Packs/Day Years Used Date Smoking Tobacco: Never Assessed Comments Unknown Sex and Gender Information Value Date Recorded Sex Assigned at Not on file 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 [id number]. Check margins. 5:39 PM CDT DERMATOPATHOLOGY LABORATORY Gross Description Specimen A: Received is one formalin filled container labeled with the patient's name and designated left side nose. The specimen consists of a curettage and desiccation biopsy measuring [id number]. The margin is inked green. Jar 0. [...] characteristic determined by the Dermatopathology Laboratory at [facility]. These tests need not be, and therefore are not, approved by the [place] Food and Drug Administration. The tests are used for clinical purposes. Billing Codes Specimen Charges Stain Charges [id number] 1 8 5:39 PM CDT DERMATOPATHOLOGY LABORATORY Embedded Images 8 5:39 PM CDT DERMATOPATHOLOGY LABORATORY Pathology/Cytolog y TISSUE SPECIMEN FROM SKIN / Unknown 11/17/2017 11/18/2017 1:06 PM CDT Trev Finnegan MD LAB - PATHOLOGY/CYTOLOGY ORD ERABLES Final Result DERMATOPATHOLOGY LABORATORY [facility] - Department of Dermatology [address] [place] [address], 5th [place] [address], [facility] [phone] documented in this encounter Visit Diagnoses Not on filedocumented in this encounter Care Teams Driver Utility Worker Relationship Specialty Start Date End Date Ruddy Holliday DO [address] [facility] [address] [address] PCP - General 10/07/17 documented as of this encounter
--- OUTSIDE RECORDS SUMMARY | 2025-01-09 11:05 | XMS_ITS | Encounter Summary ---
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 Gender Identity Not on file Sexual Orientation [...] on filedocumented in this encounter Care Teams Forest Manager Relationship Specialty Start Date End Date Heather Blanc MD [address] [place] [address] PCP - General Family Medicine 11/03/18 05/05/20 Douglas Hatfield MD [address] [facility] [address] [place] [address] PCP - General Family Practice 05/06/20 AftKalee MD PhD [address] [place] [address] Surgeon Surgical Oncology 08/27/17 Mica Mcarthur MD PhD [address] [facility] [address] [place] [address] Radiation Oncologist Radiation Oncology 09/02/17 Kalee Munguia MD PhD [address] [place] [address] Referring Physician Surgical Oncology 09/02/17 documented as of this encounter
--- OUTSIDE RECORDS SUMMARY | 2025-01-09 11:05 | XMS_ITS ---
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 Slightest signal of short term memory recall but not of consequence in daily activities. Bladder issues: disrupts sleep. Consider Myrbetriq instead of older bladder meds that have DEATH CLAIM CLERK side effects. Murmur 07/08/2021 Dizziness and giddiness 09/27/2018 Breast mass 04/18/2018 History of breast cancer 02/21/2018 Malignant neoplasm of upper- outer quadrant of left breast in female, estrogen receptor positive 08/23/2017 Cancer Staging:Pathologic:Stage Unknown(pT1b(2), pNX, cM0, G2, ER: Positive, NM: Positive, HER2: Negative) - Signed by Mica Mcarthur MD PhD on 09/08/2017 Overview (08/23/2017): ER/NM+ Basal cell carcinoma of skin of other [...]
--- OUTSIDE RECORDS SUMMARY | 2025-01-09 11:05 | XMS_ITS | Encounter Summary ---
Author Organization [facility] Health Address [address] [facility] [place] [address] Care Team Providers Care Sheet Catcher Name Role Phone Ruddy Holliday DO Primary Care Provider [phone] Encounter Details Date Type Department Care Team (Late st Contact Info) Description 10/07/2017 Lab Requisition [facility] Lab [address] [facility] [place] [address] Trev Finnegan MD [address] [place] [address] Social History Tobacco Use Types Packs/Day Years Used Date Smoking Tobacco: Never Assessed Comments Unknown Sex and Gender Information Value Date Recorded Sex Assigned at Not on file 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 Billing Codes Specimen Charges Stain Charges 69348 42866 1 1 1:09 PM CDT DERMATOPATHOLOGY LABORATORY Embedded Images 08/03/201 8 1:09 PM CDT DERMATOPATHOLOGY LABORATORY Pathology/Cytology TISSUE SPECIMEN FROM SKIN / Unknown 10/06/2017 10/07/2017 11:37 AM CDT Miscellaneous samples (specimen) TISSUE SPECIMEN FROM SKIN / Unknown 10/06/2017 10/07/2017 11:37 AM CDT us Trev Finnegan MD LAB - PATHOLOGY/CYTOLOGY ORD ERABLES Final Result DERMATOPATHOLOGY LABORATORY [facility] - Department of Dermatology [address] [facility], 5th Floor Lab [address] [phone] documented in this encounter Visit Diagnoses Not on filedocumented in this encounter Care Teams Sheet Catcher Relationship Specialty Start Date End Date Ruddy Holliday DO [address] [facility] [address] [place] [address] PCP - General 10/07/17 documented as of this encounter
--- OUTSIDE RECORDS SUMMARY | 2025-01-09 11:05 | XMS_ITS | Encounter Summary ---
Author Organization [facility] Address [address] [facility] [place] [address] Care Team Providers Care Director Transportation Name Role Phone Ruddy Holliday DO Primary Care Provider [phone] Encounter Details Date Type Department Care Team (Late st Contact Info) Description 02/14/2020 Lab Requisition [facility] DermPath Lab [address] [place] [phone] Trev Finnegan MD [address] [place] [address] Social History Tobacco Use Types Packs/Day Years Used Date Smoking Tobacco: Never Assessed Comments Unknown Sex and Gender Information Value Date Recorded Sex Assigned at Not on file 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 Gender Identity Not on file Sexual Orientation Not on file documented as of this encounter Plan of Treatment Not on file documented as of this encounter Procedures Procedure Name Priority Date/Time Associated Diagnosis Comments DERMATOPATHOLOGY Routine 02/13/2020 12:0 0 AM AIRCRAFT PAINTER documented in this encounter Results * DERMATOPATHOLOGY (02/13/2020 12:00 AM AIRCRAFT PAINTER) Case Report Dermatopathology Report Case: [id number] Authorizing Provider: Trev Finnegan MD Collected: 02/13/2020 12:00 AM Ordering Location: [facility] Derm[facility] Lab Received: 02/14/2020 12:26 PM Pathologist: Vincenzo Albarran MD Specimen: Skin, left superior pretibia 0 3:06 PM AIRCRAFT PAINTER DERMATOPATHOLOGY LABORATORY Final Diagnosis Specimen A. SKIN, left superior pretibia: DERMAL SCAR (L90.5) PRESENT AT MARGIN 0 3:[address] [facility] DERMATOPATHOLOGY LABORATORY at [address] AIRCRAFT PAINTER Clinical History R/O HAK, SCC, scar. 0 3:[address] [facility] DERMATOPATHOLOGY LABORATORY Gross Description Specimen A: Received is one formalin filled container labeled with the patient's name and designated left superior pretibia. The specimen consists of a punch biopsy measuring [id number], bisected. Jar 0. 0 3:[address] [facility] DERMATOPATHOLOGY LABORATORY Microscopic Description Specimen A. SKIN, left superior pretibia: There are fibroblasts and collagen bundles oriented parallel to the skin surface with elongated blood vessels, some of which are oriented perpendicular to the skin surface. This lesion is present at the margin of the specimen. 0 3:[address] [facility] DERMATOPATHOLOGY LABORATORY Disclaimer An external and internal positive and negative controls are appropriate for the histochemical, immunohistochemical and immunofluorescence stain(s) in this case (if any), except where stated explicitly. The performance characteristics of the stain(s) cited in this report were developed and its performance characteristic determined by the Dermatopathology Laboratory at [facility], directed by Dr. Janae Albarran. These tests need not be, and therefore are not, approved by the [place] Food and Drug Administration. The tests are used for clinical purposes. Billing Codes Specimen Charges Stain Charges [id number] 1 0 3:06 PM AIRCRAFT PAINTER DERMATOPATHOLOGY LABORATORY Embedded Images 0 3:[address] [facility] DERMATOPATHOLOGY LABORATORY Pathology/Cytolog y TISSUE SPECIMEN FROM SKIN / Unknown 02/13/2020 02/14/2020 12:26 PM AIRCRAFT PAINTER us Trev Finnegan MD LAB - PATHOLOGY/CYTOLOGY ORD ERABLES Final Result DERMATOPATHOLOGY LABORATORY [facility] - Department of Dermatology [facility] Medicine [address] [place] [address], [address] [place] [address], [facility] [phone] documented in this encounter Visit Diagnoses Not on filedocumented in this encounter Care Teams Director Transportation Relationship Specialty Start Date End Date Ruddy Holliday DO [address] [facility] [place] [address] PCP - General 10/07/17 documented as of this encounter
--- OUTSIDE RECORDS SUMMARY | 2025-01-09 11:05 | XMS_ITS | Encounter Summary ---
Author Organization [facility] Health Address [address] [place] [address] Care Team Providers Care Prototype Engineer Name Role Phone Ruddy Holliday DO Primary Care Provider [phone] Encounter Details Date Type Department Care Team (Late st Contact Info) Description 09/06/2023 Lab Requisition [facility] - DermPath Lab [address] [place] [id number] Trev Finnegan MD [address] [place] [address] Social History Tobacco Use Types Packs/Day Years Used Date Smoking Tobacco: Never Assessed Comments Unknown Sex and Gender Information Value Date Recorded Sex Assigned at Not on file 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 Gender Identity Not on file Sexual Orientation Not on file documented as of this encounter Plan of Treatment Not on file documented as of this encounter Procedures Procedure Name Priority Date/Time Associated Diagnosis Comments DERMATOPATHOLOGY Routine 09/01/2023 12:0 0 AM CDT documented in this encounter Results * DERMATOPATHOLOGY (09/01/2023 12:00 AM CDT) Case Report Dermatopathology Report Case: [id number] Authorizing Provider: Trev Finnegan MD Collected: 09/01/2023 12:00 AM Ordering Location: [facility] - Received: 09/06/2023 11:04 AM DermPath Lab [...] determined by the Dermatopathology Laboratory at [facility], directed by Dr. Janae Albarran. These tests need not be, and therefore are not, approved by the [place] Food and Drug Administration. The tests are used for clinical purposes. Billing Codes Specimen Charges Stain Charges 96317 1 1:17 PM CDT DERMATOPATHOLOGY LABORATORY Embedded Images 1:17 PM CDT DERMATOPATHOLOGY LABORATORY Pathology/Cytolog y TISSUE SPECIMEN FROM SKIN / Unknown 09/01/2023 09/06/2023 11:04 AM CDT us Trev Finnegan MD LAB - PATHOLOGY/CYTOLOGY ORD ERABLES Final Result DERMATOPATHOLOGY LABORATORY [facility] - Department of Dermatology [address] [place] [address], [facility] [phone] documented in this encounter Visit Diagnoses Not on filedocumented in this encounter Care Teams Prototype Engineer Relationship Specialty Start Date End Date Ruddy Holliday DO [address] [facility] [address] [place] [address] PCP - General 10/07/17 documented as of this encounter
--- OUTSIDE RECORDS SUMMARY | 2025-01-09 11:05 | XMS_ITS | Clinical Summary ---
Author Organization [facility] Address [address] [address] Care Team Providers Care Carriage Operator Name Role Phone Aft, Kalee Fernandez MD PhD Unavailable [phone] Mica Mcarthur MD PhD Unavailable [phone] Aft, Kalee Fernandez MD PhD Unavailable [phone] Douglas Hatfield MD Primary Care Provider Allergies No known active allergies Medications levothyroxine (SYNTHROID, LEVOTHROID) 50 mcg tablet Take 1 tablet (50 mcg total) by mouth heating and refrigeration inspector before breakfast Active esomeprazole DR (NexIUM) 40 [...] mouth daily Active cyanocobalamin/ folic acid (VITAMIN E64-UWCOT ACID) 1,000-[address], [address] under [...] APPLY TO AFFECTED BOPISY SITE ON LEFT JAIN TWICE DAILY DIRECTED 5 Active Active Problems Problem Noted Date Diagnosed Date Bronchiectasis without complication 11/04/2022 Subjective memory complaints 04/27/2022 Assessment & Plan (04/27/2022 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 Slightest signal of short term memory recall but not of consequence in daily activities. Bladder issues: disrupts sleep. Consider Myrbetriq instead of older bladder meds that have SOLVENT MIXER side effects. 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, 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 Not on f ile Not on file [...] Most Recently Relevant to Health Maintenance Insurance [facility] [employer] MEDICARE [employer] SENIOR SU[employer]LEMENT COMM[employer]CIAL [employer]IC MERISSA GOODMAN [id number] [facility] [employer] Care Teams Carriage Operator Relationship Specialty Start Date End Date Douglas Hatfield MD [address] [place] [address] PCP - General Family Practice 05/06/20 Aft, Kalee Fernandez MD PhD [address] [place] [address] Surgeon Surgical Oncology 08/27/17 Mica Mcarthur MD PhD [address] [place] [address] Radiation Oncologist Radiation Oncology 09/02/17 Jose At, Kalee Fernandez MD PhD [address] [place] [address] Referring Physician Surgical Oncology 09/02/17
[2025-01-09 13:33] LABS: Free T4 Free Thyroxine 1.14 ng/dL (0.78-2.19)
[2025-01-09 13:43] LABS: Thyroid Stimulating Hormone 3.210 uIU/mL (0.465-4.680)
== END 2025-01-09 09:51 | disposition home or self-care (01) ==
PROVIDERS: PCP Family Medicine; Visit Provider Nurse Practitioner Family
DX: E03.9 Hypothyroidism, unspecified (principal)
CPT/HCPCS: 36415; 84439; 84443

== ENCOUNTER 2025-01-30 09:00 | Outpatient (RCR) | payer MEDICARE, SELFPAY ==
--- NOTE | 2024-12-26 10:41 | OPREHPOC ---
Outpatient Therapy Plan of Care This is a Multidisciplinary Plan of Care that may contain components documented by all disciplines (PT, OT, and ST.) PT Problem 1 PT Problem #1 Knowledge Deficit PT Goal 1 Goal / Goal Update 1. Patient to demonstrate independence with HEP for improved self-reliance of symptom management. Target Visit 4 PT Problem 2 PT Problem #2 Impaired Functional Mobility PT Goal 1 Goal / Goal Update 1. Patient to demonstrate TRINIDAD LE strength >=4/5 for improved functional stability required for ADLs. Target Visit 6 PT Problem 3 PT Problem #3 Impaired Functional Mobility PT Goal 1 Goal / Goal Update 1. Patient to score >=45/56 on the Mueller Balance Scale to show improvements in balance and decreased level of assistance needed. 2. -Patient will improve lower extremity strength and functional mobility by reducing Five Times Sit -to-Stand test time to =15 seconds to demonstrate reduced fall risk and improved transitional movements Target Visit 6
--- NOTE | 2024-12-26 10:41 | PTOPEVAL1 ---
Assessment and note entered by Wilbert Vidal PT Evaluation Information Assessment Status Evaluation Diagnosis Gait abnormalities ICD-10 Condition Codes (PT) Difficulty Walking R26.2,Abnormalities of gait and mobility R26.9 Subjective Information Pt states she is not sure why she is here but her MD recommended her for physical therapy. She notes she does have seem recent balance issues where she feels unsteady upon standing. She states she does have some issues rising from a low chair. She reports no use of AD but she does own a cane. No recent falls. Pt states she sees chiropractor every week for adjustments to stay aligned. Reported Pain Level Pain Score 0: Self Report Assessment PT Clinical Summary Patient displays difficulty staying steady while standing and walking, which increase fall risk. Gait analysis shows often taking steps with NBOS and showing a noticeable hip drop. Testing showed that the muscles in their legs are generally weak, which explains why their walking pattern is uneven and unsteady. This weakness was confirmed by the [id number] test, where the patient took 19 sec to complete. . Patient will benefit from skilled physical therapy to address the above listed deficits and return to prior level of function. Home exercise program instructed and written handout provided Plan of Care Interventions Gait Training,Manual Therapy,Neuro Re-education, Therapeutic Activities,Therapeutic Exercise,Other PT Services Indicated Yes Treatment Frequency and 1x week 6 visits Duration These treatments will address the objective and functional deficits as defined above. The patient will be advanced safely and appropriately in order for the patient to progress towards his/her prior level of function. Additional exercises will be introduced and as well as a comprehensive home exercise program upon discharge, if needed, ?to ensure carryover of functional gains achieved in the clinic. This treatment plan has been reviewed and agreement upon by the patient.
--- NOTE | 2025-01-30 09:47 | PTOPDC ---
Assessment and note entered by Wilbert Vidal, PT Evaluation Information Assessment Status Discharge Diagnosis Gait abnormalities ICD-10 Condition Codes (PT) Difficulty Walking R26.2,Abnormalities of gait and mobility R26.9 Subjective Information Pt states she was very sore after her last therapy session. She notes overall she thinks she has gotten a little stronger and her chiropractor said she has been staying alignment. She states she still gets a little light headed upon standing but believes this is getting better overall. She states she wants to stop physical therapy for right now. Reported Pain Level Pain Score 0: Self Report Assessment PT Clinical Summary Patient's has improved as evidenced by objective measures such as Mueller balance and 5 x sit to stand displaying an overall reduction in fall risk. Patient has met goals and is pleased with progress made towards the remaining goals. Patient to discharge from physical therapy this date and continue with updated home exercise program as instructed. Patient to contact physical therapist or primary care provider if questions or concerns arise. Plan of Care PT Services Indicated No
== END 2025-01-30 14:09 | disposition home or self-care (01) ==
LOC: ANHGOSHPT 09:00
PROVIDERS: PCP Family Medicine; Visit Provider Family Medicine
DX: R26.89 Other abnormalities of gait and mobility (principal)
CPT/HCPCS: 97110; 97112; 97161; 97750